=== PATIENT | female | born 1960 | race Caucasian/White ===

== ENCOUNTER 2019-05-14 16:52 | Outpatient (REF) | payer BC, SELFPAY ==
--- NOTE | 2019-05-14 16:00 | PAPFT_PTH ---
PATIENT: Lion Reilly LOC: [facility]#:[id number] AGE/SX: 59/F ROOM: RE05/14/[address]: Latosha Ceja : 1960 BED: DIS: 05/14/2019 SPEC #: [id number] RECD: 05/14/19 18:40 STATUS: SANDRINE REQ #: [id number] SG: 05/14/19 16:[address]: Latosha Ceja DEPT: REPLACED BY [facility] Cytology RECD BY: Ashleigh Story ENTERED: 05/14/19 18:40 SP TYPE: PAPFT OTHR DR: Daysi Reyna Tissues: 1 - CX/ENDOCX FOR PAP SMEARS Procedures: PAP THIN PREP/UVM Screening HPV DNA PROBE Comments: [id number]
== END 2019-05-14 17:12 ==
LOC: NCHCN 16:52
PROVIDERS: PCP Nurse Practitioner Family; Visit Provider Nurse Practitioner Family
DX: Z12.4 Encounter for screening for malignant neoplasm of cervix (principal); Z11.51 Encounter for screening for human papillomavirus (HPV)
CPT/HCPCS: 88142; 87624

== ENCOUNTER 2020-10-16 19:37 | Outpatient (REF) | payer BC, SELFPAY ==
[2020-10-16 16:00] LABS: Abs Immature Grans 0.01 10^3/uL (0.0-0.06); Absolute Basophil Count 0.03 10^3/uL (0.0-0.2); Absolute Eosinophil Count 0.13 10^3/uL (0.0-0.7); Absolute Lymphocyte Count 1.06 10^3/uL (1.2-3.4); Absolute Monocyte Count 0.35 10^3/uL (0.1-0.8); Absolute Neutrophil Count 2.86 10^3/uL (1.2-6.7); Basophils % 0.7; Eosinophils % 2.9; HCT 46.4 % (36.0-46.0); HGB 15.3 g/dL (11.2-15.7); Immature Grans % 0.2; Lymphocytes % 23.9; MCH 32.8 pg (27.0-33.0); MCV 99.4 fL (80-95); MPV 11.8 fL (8.0-11.0); Monocytes % 7.9; Neutrophils % 64.4; Nucleated RBC 0 %; Platelet Count 185 10^3/uL (130-400); RBC 4.67 10^6/uL (3.93-5.22); RDW-SD 44.7 fL; WBC 4.44 10^3/uL (4.4-10.8)
[2020-10-16 16:39] LABS: ALT 28 U/L (14-59); AST 23 U/L (15-37); Albumin 4.1 g/dL (3.4-5.0); Alkaline Phosphatase 57 U/L (46-116); Anion Gap 6.8 mmol/L (3-11); BUN 18 mg/dL (7-18); Bilirubin, Total 0.7 mg/dL (0.2-1.0); CO2 29.2 mmol/L (21.0-32.0); CREATININE 0.9 mg/dL (0.55-1.02); Calcium 9.6 mg/dL (8.5-10.1); Chloride 106 mmol/L (98-107); Folate 17.4 ng/mL (8.6-20.0); Glucose 95 mg/dL (74-106); Magnesium 1.9 mg/dL (1.8-2.4); Potassium 4.1 mmol/L (3.5-5.1); Sodium 142 mmol/L (136-145); TSH 0.95 uIU/mL (0.36-3.74); Total Protein 7.1 g/dL (6.4-8.2); Vitamin B12 250 pg/mL (193-986)
== END 2020-10-16 19:38 | disposition home or self-care (01) ==
LOC: NCHCN 19:37
PROVIDERS: PCP Nurse Practitioner Family; Visit Provider Physician Assistant
DX: R20.2 Paresthesia of skin (principal); H55.09 Other forms of nystagmus
CPT/HCPCS: 80053; 82607; 82746; 83735; 84443; 85025

== ENCOUNTER 2021-06-09 20:26 | Outpatient (REF) | payer BC, SELFPAY ==
[2021-06-11 10:18] LABS: COVID-19 RT-PCR UVMMC Result Negative (Negative)
== END 2021-06-09 20:27 | disposition home or self-care (01) ==
LOC: NCHCN 20:26
PROVIDERS: PCP Nurse Practitioner Family; Visit Provider Physician Assistant
DX: Z20.822 Contact with and (suspected) exposure to COVID-19 (principal)
CPT/HCPCS: U0003

== ENCOUNTER 2021-10-22 09:33 | Outpatient (REF) | payer BC, SELFPAY ==
[2021-10-22 19:23] LABS: Anion Gap 8.2 mmol/L (3-11); BUN 19 mg/dL (7-18); CO2 28.8 mmol/L (21.0-32.0); CREATININE 0.7 mg/dL (0.55-1.02); Calcium 8.9 mg/dL (8.5-10.1); Calculated LDL 171 mg/dL (<100); Chloride 104 mmol/L (98-107); Cholesterol 266 mg/dL (<200); Glucose 90 mg/dL (74-106); HDL Cholesterol 88 mg/dL (40-60); Potassium 4.6 mmol/L (3.5-5.1); Sodium 141 mmol/L (136-145); Triglyceride 36 mg/dL (<150)
[2021-10-26 09:37] LABS: Hepatitis C Ab w Rflx HCV PCR Negative (Negative)
== END 2021-10-22 09:34 | disposition home or self-care (01) ==
LOC: NCHCN 09:33
PROVIDERS: PCP Nurse Practitioner Family; Visit Provider Physician Assistant
DX: Z00.00 Encounter for general adult medical examination without abnormal findings (principal); Z11.59 Encounter for screening for other viral diseases; Z13.220 Encounter for screening for lipoid disorders
CPT/HCPCS: 80048; 80061; 86803

== ENCOUNTER 2021-11-25 00:59 | Outpatient (CLI) | payer BC, SELFPAY ==
--- NOTE | 2021-11-25 | DI.MAMMO_ITS ---
Exam(s) MAMMO SCREENING EXAM: MAMMO SCREENING CLINICAL HISTORY: SCREENING, Z12.31, FAMILY HX BREAST CA TECHNIQUE: Mammograms were interpreted according to the usual protocol including computer analysis w [employer] CAD system, tomosynthesis and C-view imaging. COMPARISON: [facility] MAMMO SCREENING ALIYA MELISSA from 10/05/2012 [facility]. FINDINGS: The breasts are composed of scattered fibroglandular densities, Breast Density category B. Left breast: No suspicious masses or suspicious microcalcifications are seen. No skin thickening or abnormal axillary lymph nodes are seen. There has been no significant change from prior exam. Right breast: There is a nodule in the posterior, superior right breast at the margin of the pectoral muscle which shows a question of spiculation on tomographic images. No suspicious microcalcificatio ns. No skin thickening or abnormal axillary lymph nodes are seen. IMPRESSION: Left breast: Negative. Right breast: Spot compression view and ultrasound are requested for further evaluation of a nodule in the posterosuperior right breast. BI-RADS Category 0 - Assessment Incomplete: Need additional imaging evaluation . Breast Density - Category B, scattered fibroglandular densities. A negative radiographic report should not delay biopsy if a dominant or clinically suspicious mass is present. Up to ten percent of cancers are not identified on mammography. A negative report may reinforce clinical impression. Adenosis and dense breasts may obscure an underlying neoplasm. False positive reports average 6 to 10%. Patient will receive a letter notifying them of these results.
== END 2021-11-25 01:19 ==
PROVIDERS: PCP Nurse Practitioner Family; Visit Provider Physician Assistant
DX: Z12.31 Encounter for screening mammogram for malignant neoplasm of breast (principal); R92.8 Other abnormal and inconclusive findings on diagnostic imaging of breast; Z80.3 Family history of malignant neoplasm of breast
CPT/HCPCS: 77063; 77067

== ENCOUNTER → 2021-12-04 01:15 | Outpatient (CLI) | payer BC, SELFPAY ==
--- NOTE | 2021-12-04 | DI.US_ITS ---
Exam(s) MG MAMMO SCREEN CALL BACK UNI US BREAST RT COMPLETE EXAM: MG MAMMO SCREEN CALL BACK UNI -RIGHT AND COMPLETE RIGHT BREAST ULTRASOUND CLINICAL HISTORY: NODULE RT BREAST. TECHNIQUE: Unilateral spot mammographic images obtained with 3D tomosynthesisand utilizing computer aided detection (CAD). . Complete RIGHT breast Ultrasound was also performed, including all 4 quadrants, the retroareolar yanely on, and the ipsilateral axilla. Following today's ultrasound a cutaneous Beakley marker was placed over finding at 12 o'clock positio n of the right breast on the ultrasound and thereafter repeat mammogram was performed for correlation . COMPARISON: Prior mammograms were reviewed. This additional imaging was performed due to findings described on the recent screening mammogram of 11/25/2021. FINDINGS: Additional mammographic views performed todayreveals that this posteriorly located nodule in the righ t breast persists and remains spiculated. Ultrasound performed today reveals a solitary finding at the 12 o'clock position, approximately 5 cm from the nipple. This is concerning nodular finding measuring approximately 9 x 10 millimeters and w hich exhibits decreased through transmission. There are no other findings in all 4 quadrants nor in the retroareolar region. Scanning of the ipsilateral right axilla did not reveal adenopathy. At this point a cutaneous marker was placed over the ultrasound finding and patient was brought to ma mmogram suite for repeat CC and MLO views. This does not exhibit exact correlation to the concerning finding on the mammogram. IMPRESSION: Concerning findings on both the mammogram and ultrasound (12 o'clock position). Suspicious for malig yovani. Biopsy is recommended. It may be prudent to perform MRI prior to biopsy because of non exact correlation between the mammogr aphic and ultrasound findings with respect to location. Findings are recommendations were discussed by myself with the patient today. BI-RADS Category 4 - Suspicious Abnormality: Biopsy should be considered Breast Density - Category C - Heterogeneously dense Breast density Category C or D implies that the patient has dense breast tissue. Dense breast tissue can make it harder to find cancer on a mammogram. Dense breast tissue is also associated with an incr eased risk of breast cancer. This information about the result of the mammogram report was provided to the patient to raise their awareness. Use this report when you speak with the patient about their risks for breast cancer, which includes their family history. At that time, you may recommend additional screening tests (Ultrasoun d or MRI) as these tests may add significant information. A negative radiographic report should not delay biopsy if a dominant or clinically suspicious mass is present. Up to ten percent of cancers are not identified on mammography. A negative report may reinforce clinical impression. Adenosis and dense breasts may obscure an underlying neoplasm. False positive reports average 6 to 10%. Patient will receive a letter notifying them of these results.
== END ==
PROVIDERS: PCP Nurse Practitioner Family; Visit Provider Physician Assistant
DX: Z12.31 Encounter for screening mammogram for malignant neoplasm of breast (principal); R92.8 Other abnormal and inconclusive findings on diagnostic imaging of breast; N63.15 Unspecified lump in the right breast, overlapping quadrants
CPT/HCPCS: 76642; 77063; 77067

== ENCOUNTER 2022-04-05 14:39 | Outpatient (CLI) | payer BC, SELFPAY ==
[2022-04-05 11:59] LABS: Abs Immature Grans 0.03 10^3/uL (0.0-0.06); Absolute Basophil Count 0.05 10^3/uL (0.0-0.2); Absolute Eosinophil Count 0.07 10^3/uL (0.0-0.7); Absolute Lymphocyte Count 1.58 10^3/uL (1.2-3.4); Absolute Monocyte Count 0.46 10^3/uL (0.1-0.8); Absolute Neutrophil Count 3.43 10^3/uL (1.2-6.7); Basophils % 0.9; Eosinophils % 1.2; HCT 42.5 % (36.0-46.0); HGB 14.1 g/dL (11.2-15.7); Immature Grans % 0.5; Lymphocytes % 28.1; MCH 32.2 pg (27.0-33.0); MCHC 33.2 % (32.0-36.0); MCV 97 fL (80-95); MPV 10.9 fL (8.0-11.0); Monocytes % 8.2; Neutrophils % 61.1; Platelet Count 209 10^3/uL (130-400); RBC 4.38 10^6/uL (3.93-5.22); RDW 11.9 % (11.7-14.6); RDW-SD 43.1 fL; WBC 5.62 10^3/uL (4.4-10.8)
== END 2022-04-05 14:40 | disposition home or self-care (01) ==
LOC: LBO 14:41
PROVIDERS: PCP Nurse Practitioner Family; Visit Provider Radiology Radiation Oncology
DX: C50.211 Malignant neoplasm of upper-inner quadrant of right female breast (principal)
CPT/HCPCS: 36415; 85025

== ENCOUNTER 2022-08-05 11:49 | Day surgery (SDC) | payer BC, SELFPAY ==
--- NOTE | 2022-08-05 11:18 | W.PM.DSUDISC ---
Date of service: 08/05/22 Time of Service: 14:07 Discharge Plan Disposition Patient Disposition: Home Condition: Good Discharge Details Reason For Visit: colonoscopy Attending Provider: Arjun Lim Primary Care Provider: Cristin Silveira Home Meds and New Rx's Prescriptions: Discontinued bisacodyl [Dulcolax (bisacodyl)] 5 mg tablet,delayed release (DR/EC) 5 mg PO ONCE Qty: 4 0RF Rx Instructions: Take according to provider's instructions for colonoscopy prep. polyethylene glycol 3350 17 gram/dose powder 17 g PO ONCE Qty: 238 0RF Rx Instructions: To be taken as directed by prescriber's office for colonoscopy prep. No Action anastrozole 1 mg tablet 1 mg PO DAILY Discharge Instructions Instructions: Diverticulosis (DC), Diverticulosis Diet (GEN) Additional Instructions: 1. If tolerated, consume a soft, low fiber diet for 1-2 days. 2[address] Do not drive, drink alcohol, operate machinery, make critical decisions, or do activities that require coordination or balance for 24 hours. 3. Because air was put into your colon during the procedure, expelling air from your rectum (passing gas or farting) is normal. 4. You may not have a bowel movement for 1-3 days because of the colonoscopy prep. This is normal. 5. Go directly to the emergency room if you notice any of the following: Develop chills (warm to touch), or if you have a thermometer and your temperature is above 101 Difficulty breathing or difficultly swallowing Persistent vomiting Severe abdominal pain, other than gas cramps Severe chest pain Black, tarry stools Any bleeding ? exceeding one tablespoon 6. Call your physician if the site where your intravenous was started becomes red, swollen, painful, and warm to touch. 7. Your physician has reviewed your pre-procedure medications. Please continue to take those medications as previously ordered. You will be given specific information/education regarding any changes to your medications before leaving. Activity:: Activity as Tolerated Diet:: As Tolerated Discharge Orders Discharge Orders: Discharge Order (Routine); Ordered 08/05/22 Ordered By: Arjun Lim DS: Diagnosis Discharge Diagnosis (1) Screening for colon cancer: Status: Acute Asessment and Plan: Lion I performed a complete colonoscopy today. You have some very rare sigmoid diverticulosis, that I do not think is anything to worry about. Otherwise, your colonoscopy was totally normal. Please find the attached recommendations for diet management of diverticulosis. I recommend another follow-up screening colonoscopy in about 10 years.
--- NOTE | 2022-08-05 11:20 | W.COLOREPORT ---
Date of service: 08/05/22 Time of Service: 14:08 Colonoscopy Report Date of procedure: 08/05/22 Pre-op diagnosis general: Screening colonoscopy Post-op diagnosis procedure note: same Procedure: Colonoscopy Surgeon: Arjun Lim Anesthesia Type: General:No Airway Pathology: none sent Complications: None Disposition: same day Indications: Ale is a 62-year-old woman here for for screening colonoscopy. Prep: Miralax/Dulcolax Procedure Start Time: 13:26 Procedure End Time: 13:51 Retraction Time: 16 Findings: Very rare sigmoid diverticulosis Procedure Description: After the induction of monitored anesthetic care, and with the patient in left lateral decubitus position, I began by performing an external anorectal exam.? Perineum and skin were normal, as was the anal verge.? There was no not evidence of external hemorrhoids.? Next, I performed a digital rectal exam.? I did appreciate any abnormal findings.? Next, I advanced a colonoscope into the rectal vault.? I performed retroflexion.? This appeared normal.? Using insufflation, I then advanced the colonoscope beyond the rectal folds and into the sigmoid colon before advancing towards the cecum.? The quality of the prep was adequate.? The scope was noted to be in the cecum by identification of the ileocecal valve and appendiceal orifice.? I then began withdrawing the colonoscope using repeated irrigation as necessary for full evaluation of the colonic mucosa. There were some occasional sigmoid diverticula, but nothing that looked worrisome. The lumen was quite easy to navigate. ?Once the scope was withdrawn to the level of the rectum, great care was taken to examine portions of the rectal folds.? Finally, the scope was withdrawn and the patient was brought to the same-day surgery recovery unit as the anesthetic wore off. ?The findings and instructions were shared with the patient prior to discharge.
[2022-08-05 12:05] VITALS: BP 118/72; PULSE 94; RESP 18; TEMP 36.5; O2SAT 100
--- NOTE | 2022-08-05 12:19 | W.ANESPRE ---
General Info Date of Service Date Performed: 08/05/22 Height: 5 ft 10.25 in Weight: 66.678 kg Body Mass Index (BMI): 20.9 Surgical Procedure: Operation Date: 08/05/22 13:05 Proposed Procedure Side Surgeon p Shanita Lim MD Meds Allergies and Home Medications Allergies Allergy/AdvReac Type Severity Reaction Status Date / Time No Known Allergies Allergy Verified 08/05/22 12:14 Home Medication Medication Instructions Recorded anastrozole 1 mg tablet 1 mg PO DAILY 07/22/22 Current Visit Medications: Current Medications Generic Name Dose Route Start Last Admin Trade Name Freq PRN Reason Stop Dose Admin Ringer's Solution 1,000 mls @ 80 mls/hr 08/05/22 06:00 IV 09/03/22 23:59 INFUSION VI IV Miscellaneous Supplies 1 each 08/05/22 06:00 Iv Access IV 09/03/22 23:59 DIRECTED VI Sodium Chloride 0 ml 08/05/22 06:00 Normal Saline Flush 10 Ml Syr IV 09/03/22 23:59 PRN PRN Sodium Chloride 0 ml 08/05/22 06:00 Normal Saline 10 Ml Vial IJ 09/03/22 23:59 DIRECTED PRN Sterile Water 0 ml 08/05/22 06:00 Water,Injection,Sterile 10 Ml Vial IJ 09/03/22 23:59 DIRECTED PRN PFSH Active Problems Active Problems: Problem Status Onset Code Screening for colon cancer Z12.11 Abnormal mammogram R92.8 Contracture, 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 Hot flashes R23.2 Vitamin B12 deficiency E53.8 Breast cancer C50.919 Medical History Medical History Vaginal dryness Medical History Comments:: pt reports delayed emergence under general anesthesia in past Surgical History Surgical History H/O lumpectomy January 2022 H/O: Tobacco Smoking/Tobacco Use Status: Never Alcohol Alcohol Intake: current Alcohol intake frequency: a few times a week Substance Use Substance use type: does not use Vital Signs and Lab Results Vital Signs Most Recent Vital Signs in EMR: Most Recent Vital Signs Temp Pulse Resp BP Pulse Ox 36.5 C 94 H 18 118/72 100 08/05/22 12:05 08/05/22 12:05 08/05/22 12:05 08/05/22 12:05 08/05/22 12:05 Lab Results Blood Type / Crossmatch: No Data to Display Complete Blood Count: No Data to Display Complete Metabolic Panel: No Data to Display Liver Function Panel: No Data to Display Coagulation Panel: No Data to Display Cardiac Panel: No Data to Display Arterial Blood Gas: No Data to Display Venous Blood Gas: No Data to Display Pancreas Panel: No Data to Display Thyroid Panel: No Data to Display Infectious Disease: No Data to Display Blood Cultures: No Data to Display Toxicology Panel: No Data to Display Anesthesia Assessment and Plan Anesthesia History Personal History: Delayed Emergence Family History: No Family History of Anesthesia Complications Exercise Tolerance Exercise Tolerance: Metabolic Equivalents>4 Pertinent Negatives Pertinent Negatives: No Symptoms of GERD Cardiac & Pulmonary Exam Cardiac Exam: Normal S1/S2 Heart Sounds Pulmonary Exam: Clear Bilateral Breath Sounds Implantable Cardiac Device Does patient have a Pacemaker or an ICD?: No Airway Exam Known Difficult Airway: No Mallampati Class: 2 Mouth Opening: Normal (> 3cm) Thyromental Distance: Greater than 3 cm Neck Range of Motion: Full ROM Neck Circumference: Normal Teeth Condition: Normal Dentition ASA Classification ASA Score: ASA 2 Emergency Case?: No NPO Status NPO Status: NPO Clears >2 hours, Solids >8 hours Anesthesia Plan Resuscitation Status: Full Code Anesthesia Technique: General Anesthesia Airway Planned: Natural Airway Monitors Used: Standard Monitors
[2022-08-05 12:26] VITALS: BMI 20.9
[2022-08-05] MEDS: Lactated Ringers 1,000 ML 80 ML IV (12:30)
[2022-08-05 14:00] VITALS: BP 97/71; PULSE 70; RESP 17; TEMP 36.5; O2SAT 97
[2022-08-05 14:35] VITALS: BP 104/68; PULSE 63; RESP 16; TEMP 36.3; O2SAT 100
--- NOTE | 2022-08-06 15:46 | W.ANESPOSTOP ---
Postoperative Evaluation Date, Time and Location Date Performed: 08/05/22 Time Performed: 15:00 Patient Location: Day Surgery Unit Vital Signs Most Recent Imported Vital Signs: Most Recent Vital Signs Temp Pulse Resp BP Pulse Ox 36.3 C L 63 16 104/68 100 08/05/22 14:35 08/05/22 14:35 08/05/22 14:35 08/05/22 14:35 08/05/22 14:35 Pain Score Most Recent Pain Score: Most Recent Pain Score Pain Level 0 08/05/22 14:35 Assessment Mental Status: Awake (Alert & Oriented to Patient Baseline) Airway and Respiratory Function: Patent airway with normal (patient baseline) respiratory exam Cardiovascular Function: Hemodynamically Stable Hydration Status: Adequately Hydrated Nausea & Vomiting: No Nausea or Vomiting Pain: Pt. Denies Any Pain Peripheral Nerve Block: Patient did not receive a nerve block
== END 2022-08-05 11:50 | disposition home or self-care (01) ==
PROVIDERS: PCP Physician Assistant; Visit Provider Surgery
PROC: 0DJD8ZZ Inspection of Lower Intestinal Tract, Via Natural or Artificial Opening Endoscopic (ICD-10-PCS; CPT 45378; principal; 2022-08-05 13:00)
DX: Z12.11 Encounter for screening for malignant neoplasm of colon (principal)
CPT/HCPCS: 45378; J2405; J2704

== ENCOUNTER 2022-10-22 14:37 | Outpatient (REF) | payer BC, SELFPAY ==
[2022-10-22 19:32] LABS: ALT 25 U/L (14-59); AST 25 U/L (15-37); Alkaline Phosphatase 61 U/L (46-116); Anion Gap 7.4 mmol/L (3-11); BUN 14 mg/dL (7-18); Bilirubin, Total 1.1 mg/dL (0.2-1.0); CO2 29.6 mmol/L (21.0-32.0); CREATININE 0.8 mg/dL (0.55-1.02); Calcium 9.4 mg/dL (8.5-10.1); Calculated LDL 121 mg/dL (<100); Chloride 105 mmol/L (98-107); Cholesterol 231 mg/dL (<200); Estimated GFR 82.74 (mL/min/1.73m2); Glucose 96 mg/dL (74-106); HDL Cholesterol 102 mg/dL (40-60); Potassium 4.3 mmol/L (3.5-5.1); Sodium 142 mmol/L (136-145); Total Protein 7.2 g/dL (6.4-8.2); Triglyceride 43 mg/dL (<150)
== END 2022-10-22 14:38 | disposition home or self-care (01) ==
LOC: NCHCN 14:37
PROVIDERS: PCP Physician Assistant; Visit Provider Physician Assistant
DX: Z00.00 Encounter for general adult medical examination without abnormal findings (principal); E78.5 Hyperlipidemia, unspecified
CPT/HCPCS: 80053; 80061

== ENCOUNTER 2023-06-28 16:57 | Outpatient (REF) | payer BC, SELFPAY ==
--- NOTE | 2023-06-28 15:20 | PAPFT_PTH ---
PATIENT: Lion Reilly LOC: [facility]#:[id number] AGE/SX: 63/F ROOM: RE06/28/[address]: Cristin Silveira : 1960 BED: DIS: 06/28/2023 SPEC #: [id number] RECD: 06/28/23 18:42 STATUS: SANDRINE REQ #: [id number] SG: 06/28/23 15:[address]: Cristin Silveira DEPT: [facility] Cytology RECD BY: Ashleigh Story Tissues: 1 - CX/ENDOCX FOR PAP SMEARS Procedures: PAP THIN PREP/UVM Screening HPV DNA PROBE Comments: [id number]
== END 2023-06-28 16:58 | disposition home or self-care (01) ==
LOC: NCHCN 16:57
PROVIDERS: PCP Physician Assistant; Visit Provider Physician Assistant
DX: Z12.4 Encounter for screening for malignant neoplasm of cervix (principal); Z11.51 Encounter for screening for human papillomavirus (HPV)
CPT/HCPCS: 88142; 87624

== ENCOUNTER 2023-10-25 08:59 | Outpatient (REF) | payer BC, SELFPAY ==
[2023-10-25 19:00] LABS: ALT 32 U/L (14-59); AST 29 U/L (15-37); Alkaline Phosphatase 65 U/L (46-116); Anion Gap 9.1 mmol/L (3-11); BUN 17 mg/dL (7-18); CO2 28.9 mmol/L (21.0-32.0); CREATININE 0.8 mg/dL (0.55-1.02); Calcium 9.2 mg/dL (8.5-10.1); Calculated LDL 103 mg/dL (<100); Chloride 106 mmol/L (98-107); Cholesterol 201 mg/dL (<200); Estimated GFR 82.23 (mL/min/1.73m2); Glucose 88 mg/dL (74-106); HDL Cholesterol 92 mg/dL (40-60); Sodium 144 mmol/L (136-145); Total Protein 6.9 g/dL (6.4-8.2); Triglyceride 34 mg/dL (<150)
== END 2023-10-25 09:00 | disposition home or self-care (01) ==
LOC: NCHCN 08:59
PROVIDERS: PCP Physician Assistant; Referring Provider Physician Assistant; Visit Provider Physician Assistant
DX: E78.5 Hyperlipidemia, unspecified (principal)
CPT/HCPCS: 80053; 80061

== ENCOUNTER 2024-03-23 16:03 | Outpatient (REF) | payer BC, SELFPAY ==
--- OUTSIDE RECORDS SUMMARY | 2024-03-23 16:08 | XMS_ITS | Encounter Summary ---
Author Organization [facility] [place] [address] Care Team Providers Care Senior Market Research Analyst Name Role Phone Brady Muller MD Primary Care Provider [phone] Encounter Details Date Type Department Care Team (Latest Contact Info) Description 01/17/2023 Travel Social History Tobacco Use Types Packs/Day Years Used Date Smoking Tobacco: Never Smokeless Tobacco: Never Alcohol Use Standard Drinks/Week Comments Yes 4 (1 standard drink = 0.6 oz pur e alcohol) Overall Financial Resource Strain (CARDIA) Answe r Date Recorded How hard is it for you to pa y for the very basics like food, housing, medical care, and heating? Not very hard 03/04/2022 Hunger Vital Sign Answer Date Recorded Within the past 12 months, y ou worried that your food would run out before you got the money to buy more. Never true 03/04/20 22 Within the past 12 months, t he food you bought just didn't last and you didn't have money to get more. Never true 03/04/2022 PRAPARE - Transportation Answer Date Re corded In the past 12 months, has l ack of transportation kept you from medical appointments or from getting medications? No 03/04/2022 Lack of Transportation (Non-Medical) Not on file 03/04/2022 Housing Stability Vital Sign Answer Josiah e Recorded In the last 12 months, was t here a time when you were not able to pay the mortgage or rent on time? No 03/04/2022 In the last 12 months, how many places have you lived? 1 03/04/2022 In the last 12 months, was t here a time when you did not have a steady place to sleep or slept in a care home (including now)? No 03/04/2022 Sex and Gender Information Value Date Recorded Sex Assigned at Not on file Gender Identity Not on file Sexual Orientation Not on file documented as of this encounter Plan of Treatment Upcoming Encounters Date Type Department Care Team (Late st Contact Info) Description 05/08/2024 11:00 AM EDT Office Visit Hematology and Oncology at [place] [phone] Sarah Yepez MD [facility] [address] [place] [address] 01/16/2025 8:20 AM EDT Appointment Mammography/[place] [phone] Mary Mary APRN [facility] [place] [address] 01/16/2025 9:20 AM EDT Office [place] [address] Mary Mary SUPPORT SERVICE TECH [facility] [place] [address] documented as of this encounter Visit Diagnoses Not on filedocumented in this encounter Care Teams Senior Market Research Analyst Relationship Specialty Start Date End Date Brady Muller MD [address] [place] [id number] PCP - General General Internal Medicine 12/14/21 documented as of this encounter
--- OUTSIDE RECORDS SUMMARY | 2024-03-23 16:08 | XMS_ITS | Encounter Summary ---
Author Organization [facility] [place] [address] Care Team Providers Care Hr Business Partner Name Role Phone Brady Muller MD Primary Care Provider [phone] Encounter Details Date Type Department Care Team (Late st Contact Info) Description 10/20/2023 Orders Only Hematology [place] [address] Sarah Yepez MD [facility] [address] [place] [address] Malignant neoplasm of upper-outer quadrant of right breast in female, estrogen receptor positive Social History Tobacco Use Types Packs/Day Years [...] place to sleep or slept in a senior care (including now)? No 03/04/2022 Sex and Gender Information Value Date Recorded Sex Assigned at Not on file Gender Identity Not on file Sexual Orientation Not on file documented as of this encounter Plan of Treatment Upcoming Encounters Date Type Department Care Team (Late st Contact Info) Description 05/08/2024 11:00 AM EDT Office Visit Hematology and Oncology at [place] [phone] Sarah Yepez MD [facility] [address] HEMATOLOGY [place] [address] 01/16/2025 8:20 AM EDT Appointment Mammography/DXA at [place] [phone] Mary Mary [facility] [place] [address] 01/16/2025 9:20 AM EDT Office Visit General Surgery at [place] [phone] Mary Mary EMBLEM DRAWER IN [facility] [place] [address] documented as of this encounter Results * Mammo Screening Cad and Marcos Bilateral (01/16/2024 8:23 AM EDT) WORKSTATION ID [id number] DH RAD Anatomical Region Laterality Modality Breast Bilateral Mammography Impressions 01/16/2024 9:05 AM EDT Right breast: Technical callback is requested for repeat right CC view to include additional posterior medial tissue and prior lumpectomy site. Additional imaging of the Right breast is indicated. BI-RADS Category 0: Incomplete- Need Additional Imaging Evaluation and/or Prior Mammograms for Comparison RECOMMENDATION: Additional imaging requested: Mammography. Additional non-protocol views: None The patient will be contacted regarding the additional imaging. * ??Regular screening mammograms starting at age 40 reduce the risk of from breast cancer. * ??Individuals should discuss the risks and benefits with their provider to determine their preferred breast cancer screening schedule, and at what age screening should stop. * ??Individuals should report any breast changes to a health care provider right away. * ??Some Individuals, because of their family history, a genetic tendency, or other factors, should consider being screened with annual breast MRI as well as with mammograms. * ??Screening mammography may not detect 10-15% of?breast cancers. Thank you for letting us participate in the care of this patient. ??If you are a health care provider and have any questions regarding this report, please contact the number below. ??For patients who have questions please contact the health career development engineer that requested your imaging first. ? Electronically signed by: Arabella Edwards MD, [facility] ([phone]), at 01/16/2024 9:05 AM Narrative 01/16/2024 9:05 AM EDT EXAMINATION: MAMMO SCREENING CAD AND MARCOS BILATERAL REASON FOR EXAM: Screening. History of right breast cancer. TECHNIQUE: CC and MLO views were obtained of BOTH breasts. 2D and 3D tomosynthesis images were obtained. Computer aided detection was used. COMPARISON: Comparison was made to the prior relevant examinations. BREAST DENSITY: The breast tissue is heterogeneously dense, which may obscure small masses. FINDINGS: Left breast: There are no suspicious microcalcifications, masses, or areas of distortion. No changes compared to prior studies. Right breast: Technical callback is requested for repeat right CC view to include additional posterior medial tissue and prior lumpectomy site. Additional imaging of the Right breast is indicated. 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
--- OUTSIDE RECORDS SUMMARY | 2024-03-23 16:08 | XMS_ITS | Encounter Summary ---
Author Organization [facility] [place] [place] [address] Care Team Providers Care Exploration Engineer Name Role Phone Brady Muller MD Primary Care Provider [phone] Encounter Details Date Type Department Care Team (Latest Contact Info) Description 10/20/2023 Travel Social History Tobacco Use Types Packs/Day [...] place to sleep or slept in a retirement (including now)? No 03/04/2022 Sex and Gender Information Value Date Recorded Sex Assigned at Not on file Gender Identity Not on file Sexual Orientation Not on file documented as of this encounter Plan of Treatment Upcoming Encounters Date Type Department Care Team (Late st Contact Info) Description 05/08/2024 11:00 AM EDT Office Visit Hematology and Oncology at [place] [phone] Sarah Yepez MD [facility] [address] [place] [address] 01/16/2025 8:20 AM EDT Appointment Mammography/[place] [address] Mary Mary APRN [facility] [place] [address] 01/16/2025 9:20 AM EDT Office [place] [address] Mary Mary HOOP COILER [facility] [place] [address] documented as of this encounter Visit Diagnoses Not on filedocumented in this encounter Care Teams Exploration Engineer Relationship Specialty Start Date End Date Brady Muller MD [address] [place] [address] PCP - General General Internal Medicine 12/14/21 documented as of this encounter
--- OUTSIDE RECORDS SUMMARY | 2024-03-23 16:08 | XMS_ITS | Encounter Summary ---
Author Organization [facility] [place] [address] Care Team Providers Care Surgeon Chief Name Role Phone Brady Muller MD Primary Care Provider [phone] Reason for Visit * Consultation (Routine) - Closed Specialty Diagnoses / Procedures Referred By Patience menon Referred To Contact Endocrinology Diagnoses Malignant neoplasm of breast in female, estrogen receptor positive, unspecified laterality, unspecified site of breast Sarah Yepez MD [facility] [address] [place] [address] Marilee Ruelas MD [facility] [place] [address] Referral ID Status Reason Start Date Expiration Date V isits Requested Visits Authorized [id number] Closed Consult, Test & Treat 05/13/2022 05/13/2023 1 1 Encounter Details Date Type Department Care Team (Latest Contact Info) Description 10/11/2022 3:00 PM EDT TH Visit (TeleHealth) [place] [address] Marilee Ruelas MD [facility] [address] Osteopenia, unspecified location; Hormone receptor positive malignant neoplasm of breast, unspecified laterality Social History Tobacco Use Types Packs/Day Years [...] place to sleep or slept in a fci (including now)? No 03/04/2022 Sex and Gender Information Value Date Recorded Sex Assigned at Not on file Gender Identity Not on file Sexual Orientation Not on file documented as of this encounter Progress Notes * Marilee Ruelas MD - 10/11/2022 3:00 PM EDT Images from the original note were not included. 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 Yepez. She has not had any minimal trauma fracture. Her last BMD by [facility] DXA done on 04/2022 LS - 1.2 SD LFN -1.2 SD LH -0.4 SD on T score Other risk factors for fracture/osteoporosis are: [] Yes [x] No Smoking, if yes, how long [x] Yes [] No Drinking alcohol. If yes, how much, 2-3 glasses on weekends [x] Yes [] No Exercise If yes how long and what kind of exercise 5x a week with snow shows, walks [] Yes [x] No Stomach or bowel surgery. If yes, When and what kind [] Yes [x] No Loose bowel movements. If yes, how frequently and how long [] Yes [x] No Loss of height [] Yes [x] No History of kidney stones? If yes, when and how many episodes? [] Yes [x] No Kidney or liver problems? If yes, what kind and how long? Average time spent outside in direct sun a day [] 0-5 min [] 5-10 min [] 11-15 min [] 16-20 min [] 21-25 min [] 26-30 min [x] >30 min For women: Start of menstrual cycle 12/ End of menstrual cycle 58 Daily calcium intake: [] 0-100 mg [] 101-200 mg [x] 201-300 mg from greens [] 301-400 mg [] 401-500 mg [] 501-600 mg [] 601-700 mg [] 701-900 mg [] 901-1100 mg [] 6270-3060 mg [] 5807-8165 mg [] Above 1500 mg Medications: Current Outpatient Medications on File Prior to Visit Medication Sig Dispense Refill ??? estradioL (VAGIFEM) [address] 1 tablet vaginally daily. 40 tablet 3 ??? anastrozole (Arimidex) 1 mg Tablet Take 1 tablet by mouth daily. 90 tablet 11 No current facility-administered medications on file prior to visit. [] Yes [x] No Glucocorticoid dose. When first prescribed? [] Yes [x] No Cyclosporine dose. When first prescribed? [] Yes [x] No Phenobarbital and phenytoin. When first prescribed? [] Yes [x] No Rosiglitazone, pioglitazone. When first prescribed? [] Yes [x] No PPI. When first prescribed? [] Yes [x] No SSRI. When first prescribed? [] Yes [x] No Thiaizdes, loop diuretics. When first prescribed? [] Yes [x] No Estrogens, testosterone. When first prescribed? [] Yes [x] No Calcitonin. When first prescribed? [x] Yes [] No Aromatase inhibitors (breast CA). When first prescribed? [] Yes [x] No Androgen deprivation therapy (prostate CA). When first prescribed? [] Yes [x] No Alendronate, risedronate, ibandronate. When first prescribed? PMH: Patient Active Problem List Diagnosis Code ??? Malignant neoplasm of right breast in female, estrogen receptor positive C50.911, Z17.0 Allergy: No Known Allergies Family History Problem Relation Age of Onset ??? Stomach Cancer Maternal Grandmother 80 ??? Liver Cancer Maternal Grandmother 80 ??? Breast Cancer Paternal Grandmother 80 B/l mastectomy ??? Ovarian Cancer Neg Hx Hip fracture in parents: no Osteopenia/Osteoporosis: no Hyperthyroidism/Hyperparathyrodism: no Social History Socioeconomic History ??? Marital status: Spouse name: Not on file ??? Number of children: Not on file ??? Years of education: Not on file ??? Highest education level: Not on file Occupational History ??? Not on file Tobacco Use ??? Smoking status: Never ??? Smokeless tobacco: Never Vaping Use ??? Vaping Use: Never used Substance and Sexual Activity ??? Alcohol use: Yes Alcohol/week: 4.0 standard drinks Types: 4 Glasses of wine per week ??? Drug use: Never ??? Sexual activity: Not on file Other Topics Concern ??? Not on file Social History Narrative ??? Not on file Social Determinants of Health Financial Resource Strain: Low Risk ??? Difficulty of Paying Living Expenses: Not very hard Food Insecurity: No Food Insecurity ??? Worried About Running Out of Food in the Last Year: Never true ??? Ran Out of Food in the Last Year: Never true Transportation Needs: No Transportation Needs ??? Lack of Transportation (Medical): No ??? Lack of Transportation (Non-Medical): No Physical Activity: Not on file Housing Stability: Low Risk ??? Unable to Pay for Housing in the Last Year: No ??? Number of Places Lived in the Last Year: 1 ??? Unstable Housing in the Last Year: No Physical Examination: Appearance: well hydrated, well nourished, oriented x 3, in nad. Labs 12/2021 CBC and Chem 7 in good range, AP 71 Assessment and Plan 1. Hx of breast cancer on AI/osteopenia: AIs increase bone loss up to 8% a year and fracture risk significantly. A. As patient's Ca intake is 300 mg from food. Will provide patient with list of Ca rich foods. Will get 24h urine Ca and PTH levels as pt avoiding dairy per her causing inflamation, will discuss more after 24h urine Ca is back. B. Patient also doesn't have Vitamin D done; goal is 30 ng/ml and above. Will check 25, Vit D now. She does not take any. C. Will order BMD by DXA 12 month if treatment is initiated, I will get NTX to see how avctive garrett osteoclasts are. D. If 25 Vit D, PTH, TSH and 24h urine Ca at good range will discuss treatment with zolendronic acid alendronate 70 mg Q week, risedronate 35 mg Q week, denosumab 60 mg SQ q 6 month, even though she is hesitant at this point. E. I will schedule patient for outpatient visit at 12 weeks. Thank you for allowing me to participate in the care of this very pleasant patient. I spend 60min in chart review, DXA, labs, discussing actions of AIs on bone and writing my note. Sincerely, Marilee Ruelas MD Professor of Endocrinology documented in this encounter Plan of Treatment Upcoming Encounters Date Type Department Care Team (Late st Contact Info) Description 05/08/2024 11:00 AM EDT Office Visit Hematology [place] [phone] Sarah Yepez MD [facility] [address] [place] [address] 01/16/2025 8:20 AM EDT Appointment Mammography/[place] [phone] Mary Mary APRN [facility] [address] 01/16/2025 9:20 AM EDT Office [place] [address] Mary Mary APRN [facility] [place] [address] documented as of this encounter Visit Diagnoses Diagnosis Osteopenia, unspecified location Hormone receptor positive malignant neoplasm of breast, unspecified laterality documented in this encounter Care Teams Surgeon Chief Relationship Specialty Start Date End Date Brady Muller MD [address] [place] [id number] PCP - General General Internal Medicine 12/14/21 documented as of this encounter
--- OUTSIDE RECORDS SUMMARY | 2024-03-23 16:08 | XMS_ITS | Encounter Summary ---
Author Organization [facility] [place] [address] Care Team Providers Care Truck Rental Manager Name Role Phone Brady Muller MD Primary Care Provider [phone] Encounter Details Date Type Department Care Team (Late st Contact Info) Description 05/22/2022 Telephone Hematology [place] [phone] [facility] [address] HEMATOLOGY/[place] [address] Social History Tobacco Use Types Packs/Day Years [...] on file documented as of this encounter Miscellaneous Notes * Telephone Encounter - Zander De Leon MD - 05/22/2022 1:54 PM EDT Heme-Onc Staff I have reviewed the patient's record and, given personal and/or family history of cancer she shouldbe seen by a genetic counselor. This is scheduled for next week. Zander De Leon MD air reduction equipment operator in Hematology-Oncology documented in this encounter Plan of Treatment Upcoming Encounters Date Type Department Care Team (Late st Contact Info) Description 05/08/2024 11:00 AM EDT Office Visit Hematology and Oncology at [place] [phone] [facility] [place] [address] 01/16/2025 8:20 AM EDT Appointment Mammography/DXA at [place] [phone] [facility] [place] [address] 01/16/2025 9:20 AM EDT Office Visit General Surgery at [place] [phone] [facility] GENERAL SURGERY [place] [phone] documented as of this encounter Visit Diagnoses Not on filedocumented in this encounter Care Teams Truck Rental Manager Relationship Specialty Start Date End Date Brady Muller MD [address] [place] [id number] PCP - General General Internal Medicine 12/14/21 documented as of this encounter
--- OUTSIDE RECORDS SUMMARY | 2024-03-23 16:08 | XMS_ITS | Encounter Summary ---
[place] [address] Care Team Providers Care Salesperson Hearing Aids Name Role Phone Brady Muller MD Primary Care Provider [phone] Encounter Details Date Type Department Care Team (Late st Contact Info) Description 04/07/2023 9:00 AM EDT Office Visit Hematology [place] [phone] Florencio Castillo, RN Malignant neoplasm of upper-outer quadrant of right [...] as of this encounter Progress Notes * Florencio Castillo RN - 04/07/2023 9:00 AM EDT RESEARCH NURSE OFFICE NOTE 12 Month Follow up Visit 04/07/2023 [id number]: A Phase III Clinical Trial Evaluating DE-escalation of Breast RAdiation (BJORN) for Conservative Treatment of Stage I, Hormone Sensitive, HER2-Negative, Oncotype Recurrence Score < 18 Breast Cancer Randomization Date: 04/05/2022; ARM 2- no XRT, ET only SUBJECTIVE Lion Reilly presented to hem-onc clinic for 12 month follow up with Dr. Yepez. She was accompanied by her , Ziggy. Lion Reilly confirms she has been taking anastrozole daily. She denies headache, vision changes, hearing changes, lightheadedness, fevers, chills, night sweats, mouth sores, taste changes, cold symptoms, heartburn, sob, chest pain or palpitations, nausea, vomitingor abdominal pain, urinary frequency or dysuria, states bowel habits are normal. She also denies numbness or tingling, skin rash, joint pain, swelling or fatigue. She does endorse hot flashes which she state come in waves and are manageable. She does report thatshe feels lumpy especially in her R axilla. Breast exam to be completed by provider this visit. STUDY ASSESSMENTS COMPLETED Questionnaire completed on paper and given to Sima Vazquez CRC A/E's Signs/Symptoms & Adverse Events (insert table via quick text on first occasion then copy from pervious note for all subsequent notes) EVENT CTCAE 5.0 GRADE START DATE STOP DATE COMMENTS hotflashes 1 ~04/09/22 BASELINE EDUCATION PROVIDED Lion Reilly was educated that we will schedule her 18 months from randomization visit around 10/06/23. Patient has been advised to contact this office or her research nurse for any questions, concerns, of new or worsening symptoms if they should happen prior to her next scheduled visit. Lion Reilly verbalizes that she still has Leeann Serrato RN's number. PLAN 1. Patient agrees to continue on study BR007. 2. Next visit 18 month follow up from randomization scheduled due 10/06/23 3. Continue endocrine therapy as ordered by Dr. Yepez Patient verbalizes understanding of, and agreement with, plan. documented in this encounter Plan of Treatment Upcoming Encounters Date Type Department Care Team (Late st Contact Info) Description 05/08/2024 11:00 AM EDT Office Visit Hematology and Oncology at [place] [phone] Sarah Yepez MD [facility] DR HEMATOLOGY [place] [address] 01/16/2025 8:20 AM EDT Appointment Mammography/[place] [address] Mary Mary [facility] [place] [address] 01/16/2025 9:20 AM EDT Office Visit General Surgery at [place] [phone] Mary Mary [facility] [place] [address] documented as of this encounter Visit Diagnoses Diagnosis Malignant neoplasm of upper-outer quadrant of right breast in female, estrogen receptor positive documented in this encounter Care Teams Salesperson Hearing Aids Relationship Specialty Start Date End Date Brady Muller MD [address] [address] PCP - General General Internal Medicine 12/14/21 documented as of this encounter
--- OUTSIDE RECORDS SUMMARY | 2024-03-23 16:08 | XMS_ITS | Encounter Summary ---
Author Organization [facility] [place] [address] Care Team Providers Care Wood Strip Block Floor Installer Name Role Phone Brady Muller MD Primary Care Provider [phone] Encounter Details Date Type Department Care Team (Latest Contact Info) Description 01/16/2024 8:07 AM EDT - 01/16/2024 11:59 PM EDT Hospital Encounter Mammography/[place] [address] Delmi Robins APRN [facility] [place] [address] Malignant neoplasm of upper-outer quadrant of right breast in female, estrogen receptor positive Discharge Disposition: Home Social History Tobacco Use Types Packs/Day Years [...] place to sleep or slept in a chcf (including now)? No 03/04/2022 Sex and Gender Information Value Date Recorded Sex Assigned at Not on file Gender Identity Not on file Sexual Orientation Not on file documented as of this encounter Medications at Time of Discharge Medication Sig Dispensed Refills Start Date End Date anastrozole (Arimidex) 1 mg tablet Take 1 tablet by mouth daily. 90 tablet 3 10/20/2023 10/19/2024 valACYclovir (Valtrex) 1 gram tablet TAKE ONE TABLET BY MOUTH THREE TIMES A DAY DIRECTED 04/12/2023 estradioL (VAGIFEM) [address] 1 tablet vaginally daily. 40 tablet 3 07/27/2022 documented as of this encounter Plan of Treatment Upcoming Encounters Date Type Department Care Team (Late st Contact Info) Description 05/08/2024 11:00 AM EDT Office Visit Hematology [place] [phone] Sarah Yepez MD [facility] [address] [place] [address] 01/16/2025 8:20 AM EDT Appointment Mammography/[place] [phone] Mary Mary APRN [facility] [place] [address] 01/16/2025 9:20 AM EDT Office [place] [phone] Mary Mary APRN [facility] [place] [address] documented as of this encounter Procedures Procedure Name Priority Date/Time Associated Diagnosis Comments MAMMO SCREENING CAD AND MARCOS BILATERAL Routine 01/16/2024 8:23 AM EDT Malignant neoplasm of upper-outer quadrant of right breast in female, estrogen receptor positive documented in this encounter Results * Mammo Screening Cad and Marcos Bilateral (01/16/2024 8:23 AM EDT) WORKSTATION ID [id number] DH RAD Anatomical Region Laterality Modality [...] who have questions please contact the health critical care paramedic that requested your imaging first. ? Narrative 01/16/2024 9:05 AM EDT EXAMINATION: MAMMO [...] the Right breast is indicated. Delmi Robins CO PILOT IMG MAMMO ORDERABLE S documented in this encounter Visit Diagnoses Diagnosis Malignant neoplasm of upper-outer quadrant of right breast in female, estrogen receptor positive documented in this encounter Care Teams Wood Strip Block Floor Installer Relationship Specialty Start Date End Date Brady Muller MD [address] [address] PCP - General General Internal Medicine 12/14/21 documented as of this encounter
--- OUTSIDE RECORDS SUMMARY | 2024-03-23 16:08 | XMS_ITS | Encounter Summary ---
[place] [address] Care Team Providers Care Federal Agent Name Role Phone Brady Muller MD Primary Care Provider [phone] Encounter Details Date Type Department Care Team (Late st Contact Info) Description 10/20/2023 1:00 PM EDT Office Visit Hematology [place] [phone] Florencio Castillo, RN Malignant neoplasm of upper-outer [...] place to sleep or slept in a snf (including now)? No 03/04/2022 Sex and Gender Information Value Date Recorded Sex Assigned at Not on file Gender Identity Not on file Sexual Orientation Not on file documented as of this encounter Progress Notes * Florencio Castillo RN - 10/20/2023 1:00 PM EDT RESEARCH NURSE OFFICE NOTE 18 Month Follow up Visit 10/20/2023 [id number]: A Phase III Clinical Trial Evaluating DE-escalation of Breast RAdiation (BJORN) for Conservative Treatment of Stage I, Hormone Sensitive, HER2-Negative, Oncotype Recurrence Score < 18 Breast Cancer Randomization Date: 04/05/2022; ARM 2- no XRT, ET only SUBJECTIVE Lion Reilly presented to hem-onc clinic for 18 month follow up with Dr. Yepez. She [...] state come in waves and are manageable. Notices that diet changes can cause increased hot flashes. Continues with active lifestyle- running, weightlifting, stretching. STUDY ASSESSMENTS COMPLETED A/E's Signs/Symptoms & Adverse Events (insert table via quick text on first occasion then copy from pervious note for all subsequent notes) EVENT CTCAE 5.0 GRADE START DATE STOP DATE COMMENTS hotflashes 1 ~04/09/22 BASELINE EDUCATION PROVIDED Lion Reilly was educated that we will schedule her 24 months from randomization visit around ~04/17. Patient has been advised to contact this office or her research nurse for any questions, concerns, of new or worsening symptoms if they should happen prior to her next scheduled visit. Lion hoang verbalizes that she still has Leeann Serrato RN's number. PLAN 1. Patient agrees to continue on study BR007. Reconsent completed 2. Next visit 24 month follow up from randomization scheduled due ~03/2024 3. Continue endocrine therapy as ordered by Dr. Yepez Patient verbalizes understanding of, and agreement with, plan. RESEARCH NURSE INFORMED RECONSENT NOTE Date: 10/20/2023 Objective of visit: complete reconsent per [id number] protocol requirements. Information Provided: Consent addendum was reviewed with Lion. Lion Reilly was advised that they may discontinue treatment at any time and that refusing to participate or discontinuing treatment will not compromise the patient's access to treatment options or care. Lion Reilly had previously been given written information regarding the protocol (informed consent document) and reports that they have had adequate time to review the information. They were given adequate time to ask questions and review concerns, all of which were answered to the patient's satisfaction. Assessment/Outcome: Lion Reilly verbalized understanding of protocol and continues to consent for treatment. Patient declined copy of signed ICF document. Original, signed informed consent document Version 05/13/23, effective date [id number] given to ELVIN Chacon for scanning into patient's electronic medical record. Written informed consent was obtained prior to any study procedures being done. *I attest that I amcertified and authorized to obtain legally effective informed consent from human subject participants per policy #34227 v.1* documented in this encounter Plan of Treatment Upcoming Encounters Date Type Department Care Team (Late st Contact Info) Description 05/08/2024 11:00 AM EDT Office Visit Hematology [place] [address] Sarah Yepez MD [facility] DR [place]EMATOLOGY [place] [address] 01/16/2025 8:20 AM EDT Appointment Mammography/[place] [phone] Mary Mary PLANT MAINTENANCE TECHNICIAN [facility] [place] [place] [address] 01/16/2025 9:20 AM EDT Office [place] [phone] Mary Mary PLANT MAINTENANCE TECHNICIAN [facility] [place] [address] documented as of this encounter Visit Diagnoses Diagnosis Malignant neoplasm of upper-outer quadrant of right breast in female, estrogen receptor positive documented in this encounter Care Teams Federal Agent Relationship Specialty Start Date End Date Brady Muller MD [address] [place] [address] PCP - General General Internal Medicine 12/14/21 documented as of this encounter
--- OUTSIDE RECORDS SUMMARY | 2024-03-23 16:08 | XMS_ITS | Encounter Summary ---
Author Organization [facility] [place] [address] Care Team Providers Care Track Layer Head Name Role Phone Brady Muller MD Primary Care Provider [phone] Reason for Visit * Reason Comments Follow-up Encounter Details Date Type Department Care Team (Late st Contact Info) Description 01/16/2024 9:20 AM EDT Office [place] [address] Dlemi Robins, [facility] [place] [address] Mary Mary, [facility] [place] [address] Encounter for follow-up surveillance of breast cancer; Malignant neoplasm of upper-inner quadrant of right breast in female, estrogen receptor positive; Heterogeneously dense tissue of both breasts on mammography; Breast cancer screening by mammogram Social History Tobacco Use Types Packs/Day Years [...] place to sleep or slept in a intermediate (including now)? No 03/04/2022 Sex and Gender Information Value Date Recorded Sex Assigned at Not on file Gender Identity Not on file Sexual Orientation Not on file documented as of this encounter Last Filed Vital Signs Vital Sign Reading Time Taken Comments Blood Pressure - - Pulse - - Temperature - - Respiratory Rate - - Oxygen Saturation - - Inhaled Oxygen Concentration - - Weight - - Height 177.9 cm (5' 10.04) 01/16/2024 9:26 AM E DT Body Mass Index - - documented in this encounter Progress Notes * Mary Mary APRN - 01/16/2024 9:20 AM EDT Images from the original note were not included. Patient ID: Lion Reilly is a 63 y.o. female. She is accompanied by her Ziggy. HPI: Lion is a patient of Dr. Gallego with a history of invasive ductal carcinoma in the right breast who returns for annual breast cancer surveillance. She is status post right partial mastectomy and sentinel node excision on February 11, 2022. At today's visit, Lion has no breast concerns and denies new lumps or bumps in her breasts or axilla. She performs occasional self-breast exams. No nipple discharge or pain in either breast. She denies new headaches or significant weight changes. No new bony pain or tenderness. She has no new or concerning complaints of fatigue, cardiovascular, or respiratory symptoms. All other ROS are negative. Lion denies significant changes to her health since her last visit. Breast cancer history: A screening mammogram in November 2021 showed a 0.9 cm mass in the right upper inner quadrant, 13 cm from the nipple. Diagnostic imaging confirmed the findings. A biopsy on 12/14/21 showed high grade ER/PRpositive, HER-2 negative IDC. An MRI on 01/04/22 showed a 9 mm mass with irregular margins in the right breast at 1:00, 16 cm from the nipple. Lion opted for BCT and SNE with Dr. Gallego on 02/11/22. Final pathology revealed 8 mm intermediategrade IDC, excised with negative margins. Four sentinel nodes were negative. Lion enrolled in BR007 study and randomized to the NO XRT arm. She started anastrozole on 04/09/22 with plan for 10 years. Breast Cancer Notes: Method of Cancer Detection Screening mammogram, 11/25/2021 Menopausal Status at Diagnosis Postmenopausal Date of Diagnostic Biopsy 12/14/2021 Local Surgery Right partial mastectomy Axillary Management SNE ([address] involved) Date of Last Surgical Procedure 02/11/2022 Histology IDC Location Right upper inner quadrant Size of Primary Malignancy 8 mm Grade 2, intermediate Margins Not involved ER Positive TN Positive HER-2 Negative OncotypeDx Recurrence Score 11 Chemotherapy Not indicated Radiation Therapy No XRT (BR007 study) Adjuvant Endocrine Therapy Anastrozole started 04/09/22 (Dr. Yepez) Genetic Testing 05/28/22 - [employer] Common Hereditary Cancers Panel showed no mutation was detected. Surveillance Annual mammogram and CBE Breast Cancer Risk Factors: History Age at delivery of first child 20 yo Breast fed Yes Menarche age 12-13 yo LMP / Menopause 57 yo Hormonal contraception use Yes, when younger Hormone replacement therapy No. She has a prescription for vaginal estrogen, but has not yet started using it. 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 Smoking Hx: She has never smoked. ETOH: few drinks/wk Physical Activity: Running, walking, strength training Relevant Medical Hx: Noncontributory Surgical Hx: Noncontributory Physical Exam: General appearance: Alert, well-appearing, well-developed; in no acute distress. Skin: Warm and dry. Head: Normocephalic, atraumatic. Neck: Soft and supple without cervical or supraclavicular adenopathy. Cardiovascular: Normal rate, regular rhythm and normal heart sounds. No murmur heard. Pulmonary: Effort normal and breath sounds normal. No signs of respiratory distress, cough, or wheezing. Breasts: Exam performed in the upright and supine positions. The left breast has well-healed scars in the upper outer quadrant and in the axilla. The scars are soft and nontender, without mass. No venous prominence, or skin thickening. The right breast is normal in appearance and contour. No suspicious masses, tenderness, dimpling, erythema, or other skin changes in either breast. No nipple discharge or other nipple changes. The nipples are everted. No palpable axillary lymph nodes bilaterally.The breasts are symmetric. Breast exam by palpation revealed no obvious or distinct masses or nodularity in either breast. She has dense fibroglandular tissue in the upper outer aspect of the breasts without tenderness to palpation. Musculoskeletal: Arms with full ROM without any evidence of lymphedema. Fully weight-bearing. Neurological: Alert and oriented x 4. Mood is euthymic and appropriate to the situation. Imaging: Imaging [place] [facility] no evidence of malignancy, BIRADS Category 0 in the right breast for a technical call back. The left breast was normal. The results were reviewed at today's appointment. Addendum: FINDINGS: 01/18/24 Repeat right cc views exaggerated lateral and exaggerated medial were performed. The lumpectomy cavity is far posterior central breast, best seen on the lateral view and exaggerated CC lateral. No definitive interval change. There are no suspicious microcalcifications, masses, or areas of unexplained distortion in either breast. No significant changes compared to prior studies. IMPRESSION No mammographic evidence of malignancy. FINAL ASSESSMENT: BI-RADS Category 2: Benign Assessment: Clinical breast exam notable for fibroglandular breast tissue bilaterally without notable masses, skin changes, dimpling, or nipple discharge. Plan: 1. Encounter for follow-up surveillance of breast cancer 2. Malignant neoplasm of upper-inner quadrant of right breast in female, estrogen receptor positive 3. Heterogeneously dense tissue of both breasts on mammography 4. Breast cancer screening by mammogram - Mammo Screening Cad and Marcos Bilateral; December 2024 - Right technical call back scheduled for 01/18/24 I have discussed my assessment and recommendations with Lion to include breast awareness and annual mammographic screening with clinical breast exams. Provided call back imaging in the right breast is negative, she will follow up with me in one year for ongoing breast cancer surveillance and screening. Lion will contact me if she develops any new breast changes or concerns prior to that appointment. She agrees to this plan. Survivorship recommendations: Continue annual bilateral screening mammograms until life expectancy is <10 years and you remainin good health, or as long as you would consider treatment for a breast cancer if found. Continue clinical breast exams at least once yearly. Continue self breast awareness. For any new or worsening symptoms for which cause remains undetermined, consider breast cancer recurrence. Specifically - new or worsening skeletal pain, headache, diplopia, neurologic deficits, elevated LFTs, abdominal pain/swelling, cough, or SOB. Get at least 150 minutes of cardiovascular exercise and 2 days of resistance/strength training per week. Ways to include exercise at home include yoga and bone building exercise videos online. At home resistance / strength exercise routines are available for free at [employer] & other things you bake.com: Improved Health for Seniors [employer] Consider wearing a weighted vest while walking to help with bone density. Eat a mainly plant-based Mediterranean style diet. Minimize processed foods, simple carbohydrates, sugars, and artificial sweeteners. Do not smoke. If consuming alcohol, limit to 1 drink or less per day. Maintain or achieve a healthy weight. Normal BMI < 25 for individuals under 65 years old; 22-30 for > 65 years old. Manage stress levels. Aim for at least 7 to 8 hours of sleep per night. Be cautious about exposure risk, both what you put in and on your body (ie: artificial fragrances, artificial dyes, as well as certain ingredients in makeup, hair and body care, antiperspirant, sunscreen, insect repellant, laundry detergent, fabric softener, dryer sheets, etc.). Resources to help you make informed choices for personal care products are available at EWG (Environmental Working Group) at ewg.org and free apps for your cell phone from [employer] (Healthy Living), Rosalee Dirty, and Kathy. Anticancer Lifestyle program offers free tools and information to help you improve your diet, increase fitness, decrease stress, and reduce your exposure to harmful chemicals in your home environment. Free course available at anticancerlifestyle.org. All questions were answered to the patient's satisfaction and they state understanding and agreement with today's treatment plan. They are encouraged to follow up sooner if they develop any new or concerning symptoms. I spent 35 minutes related to this encounter on the date of service, which included the following services that were not separately reported: [x] Preparing to see the patient (e.g., review of tests) [x] Obtaining and/or reviewing separately obtained history [x] Performing a medically appropriate examination and/or evaluation [x] Counseling and educating the patient/family/caregiver [x] Ordering medications, tests, or procedures [] Referring and communicating with other health animal caretaker supervisor [x] Documenting clinical information in the electronic or other health record [x] Independently interpreting results and communicating results to the patient/family/caregiver [x] Care coordination Mary Mary APRN Surgical Oncology P [phone] F [phone] [facility] documented in this encounter Plan of Treatment Upcoming Encounters Date Type Department Care Team (Late st Contact Info) Description 05/08/2024 11:00 AM EDT Office Visit Hematology [place] [address] Sarah Yepez MD [facility] [place] [address] 01/16/2025 8:20 AM EDT Appointment Mammography/[place] [address] Mary Mary APRN [facility] [place] [address] 01/16/2025 9:20 AM EDT Office Visit General Surgery at [facility] [place] [address] Mary Mary, [facility] [address] Scheduled Orders Name Type Priority Associated Diagnoses Orde r Schedule Mammo Screening Cad and Marcos Bilateral Imaging Routine Malignant neoplasm of upper-inner quadrant of right breast in female, estrogen receptor positive Heterogeneously dense tissue of both breasts on mammography Breast cancer screening by mammogram Expected: 01/15/2025, Expires: 07/17/2025 documented as of this encounter Visit Diagnoses Diagnosis Encounter for follow-up surveillance of breast cancer Unspecified follow-up examination Malignant neoplasm of upper-inner quadrant of right breast in female, estrogen receptor positive Heterogeneously dense tissue of both breasts on mammography Breast cancer screening by mammogram documented in this encounter Care Teams Track Layer Head Relationship Specialty Start Date End Date Brady Muller MD [address] [address] PCP - General General Internal Medicine 12/14/21 documented as of this encounter
--- OUTSIDE RECORDS SUMMARY | 2024-03-23 16:08 | XMS_ITS | Encounter Summary ---
Author Organization [facility] [place] [address] Care Team Providers Care Glove Factory Sewer Name Role Phone Brady Muller MD Primary Care Provider [phone] Encounter Details Date Type Department Care Team (Latest Contact Info) Description 07/27/2022 Travel Social History Tobacco Use Types Packs/Day [...] place to sleep or slept in a residential (including now)? No 03/04/2022 Sex and Gender Information Value Date Recorded Sex Assigned at Not on file Gender Identity Not on file Sexual Orientation Not on file documented as of this encounter Plan of Treatment Upcoming Encounters Date Type Department Care Team (Late st Contact Info) Description 05/08/2024 11:00 AM EDT Office Visit Hematology and Oncology at [place] [phone] Sarah Yepez MD [facility] [address] [place] [address] 01/16/2025 8:20 AM EDT Appointment Mammography/[place] [address] Mary Mary APRN [facility] [place] [address] 01/16/2025 9:20 AM EDT Office [place] [address] Mary Mary ROOF PANEL HANGER [facility] [place] [place] [address] documented as of this encounter Visit Diagnoses Not on filedocumented in this encounter Care Teams Glove Factory Sewer Relationship Specialty Start Date End Date Brady Muller MD [address] [place] [id number] PCP - General General Internal Medicine 12/14/21 documented as of this encounter
--- OUTSIDE RECORDS SUMMARY | 2024-03-23 16:08 | XMS_ITS | Encounter Summary ---
Author Organization [facility] Address [facility] [place] [address] Care Team Providers Care Deputy Sheriff Bailiff Name Role Phone Brady Muller MD Primary Care Provider [phone] Reason for Visit * Reason Comments Follow-up Encounter Details Date Type Department Care Team (Late st Contact Info) Description 11/30/2022 10:00 AM EDT Office Visit Hematology [place] [address] Sarah Yepez MD [facility] [address] HEMATOLOGY [place] [address] Malignant neoplasm of upper-outer quadrant of right [...] Sign Reading Time Taken Comments Blood Pressure 105/69 11/30/2022 9:22 AM EDT Pulse 61 11/30/2022 9:22 AM EDT Temperature 36.3 ??C (97.3 ??F) 11/30/2022 9:22 AM ED T Respiratory Rate 16 11/30/2022 9:22 AM EDT Oxygen Saturation 100% 11/30/2022 9:22 AM EDT Inhaled Oxygen Concentration - - Weight 65.8 kg (145 lb 1 oz) 11/30/2022 9:22 AM EDT Height 177.5 cm (5' 9.88) 11/30/2022 9:22 AM ED T Body Mass Index 20.88 11/30/2022 9:22 AM EDT documented in this encounter Progress Notes * Sarah Yepez MD - 11/30/2022 10:00 AM EDT Lion Reilly is a 62 y.o. female with a stage 1 right luminal breast cancer On adjuvant anastrazole since 04/09/22 And of BR007, randomized to no RT. Surg Onc: Dr Gallego 11/30/2022 On anastrazole and BR007, randomized to no breast RT. Myalgias/arthalgias: none hot flashes: comes in waves but better exercise: yes, running 2 or 3 x a week ( @ 3 miles) and snowshioeing Not using vagifem. Saw metabolic bone- needs to be sent a urine collection Genetics negative 07/27/2022 Here for routine follow-up. 1. She started anastrozole on 04/09/22. Formal teaching from Barbi Gramajo RN. Using diet to control hot flashes that were previously horrendous during menopause. She has lost approximately 20lbover the years. She has noticed a difference in her hot flashes after starting anastrozole. She hasdaily hot flash during her coffee. They last about 2-3 min. She has more if she deviates from her diet - the ham, pork chops, red meat. She was recently in [place] in June. She does noticea relationship with alcohol. She is accepting of these side effects. She also has nausea in the conventional underwriter that is not new. Joint aches have resolved after the diet changes. Vaginal dryness is an issue, with narrowing of the introitus and painful penetration. She has tried KY jelly with no improvement. She has noticed a difference in the mucosa with vaginal suppositories (non-estrogen containing). She has not tried topical estrogen but came close prior to her breast cancer diagnosis. She says she is game to try it and it would improve her quality of life is she could enjoy intercourse again with her partner. 2. DEXA scan on 05/07/22 showed osteopenia (T-1.2); pt was referred to endocrinology; appointment not yet scheduled. She is awaiting their phone call. 3. She received genetic counseling and is awaiting results of [employer] Common Hereditary Cancers Panel (buccal swab) Breast Cancer History as follows: 12/14/2021 MMG and US: Right breast 0.8 cm mass right breast 1:00 12/14/2021 right breast biopsy Path PD IDC ER>90 NC >90 HER 2 ary neg by FISH oncotype RS: 11 ( 3% recurrence risk with hormones) Ki 67: 16% 01/04/2022: katie breast MRI: right breast 0l9 cm. No nodes 02/11/2022 RLE and SLNB (0/4) [id number] Path: IDC T= 0.8 cm Grade 2 No DCIS No LVI Neg margin No post op complications Enrolled in BR 007 and randomized to NO breast RT. anastrazole started 04/09/22 Genetics negative 2022 Past Medical History: Diagnosis Date ??? Malignant neoplasm of right breast in female, estrogen receptor positive 12/18/2021 12/14/21 bx [facility]: ER+/NC+/HER2 pending right breast IDC, high grade Past Surgical History: Procedure Laterality Date ??? MAMMO US BIOPSY RIGHT Right 12/14/2021 Mammo Us Biopsy Right 12/14/2021 Delmi Gardner MD [facility] RAD MAMMOGRAPHY ??? MAMMO US NEEDLE LOCALIZATION RIGHT Right 02/11/2022 Mammo US Needle Localization Right 02/11/2022 Gali Bosch MD [facility] RAD MAMMOGRAPHY ??? PRO BX/REMV, LYMPH NODE, DEEP AXILL Right 02/11/2022 BIOPSY OR EXCISION OF LYMPH NODE(S), OPEN, DEEP AXILLARY NODE(S) (WRVU 6.43) performed by Deshawn Gallego MD at [facility] MAIN OR ??? PRO INTRAOP SENTINEL LYMPH ID W/DYE INJECTION Right 02/11/2022 INTRAOPERATIVE ID (MAPPING) SENTINEL LYMPH NODE,INCLUDES INJECTION (WRVU 2.5) performed by Deshawn Gallego MD at [facility] MAIN OR ??? 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 Negative for chills, fatigue and fever. HENT: Negative. Eyes: Negative. Respiratory: Negative. Negative for cough, dizziness on exertion and shortness of breath. Cardiovascular: Negative. Negative for chest pain and leg swelling. Gastrointestinal: Negative. Endocrine: Negative. Genitourinary: Negative. Musculoskeletal: Negative. Skin: Negative. Neurological: Negative. Hematological: Negative. Psychiatric/Behavioral: Negative. All other systems reviewed and are negative. Physical Exam: . Constitutional: She is oriented to person, place, and time. She appears well- developed and well-nourished. No distress. HENT: Head: Normocephalic. Eyes: Conjunctivae are normal. Pupils are equal, round, and reactive to light. Neck: Normal range of motion. Cardiovascular: Normal rate, regular rhythm and normal heart sounds. Pulmonary/Chest: Effort normal and breath sounds normal. Breasts: Right breast: s/p RLE and SLNB. No masses or nipple discharge in right or left breast Has a keloid-like scar at the site of tumor excision. No evidence of CW recurrence or infection. Abdominal: Soft. Bowel sounds are normal. There is no tenderness. Musculoskeletal: Normal range of motion. Extremities: no clubbing, cyanosis or edema Neurological: She is alert and oriented to person, place, and time. Gait normal. Skin: Skin is warm and dry. Psychiatric: She has a normal mood and affect. Her behavior is normal A/P Lion Reilly is a 62 y.o. female With a stage 1 luminal breast cancer on the right who is s/p RLE and SLNB with a low oncotype scoreof 11 on anastrazole and tolerating well. She is enrolled on BR 007 and randomized to NO RT I recommend the followin.Breast Cancer: Hormonal therapy x 10 years. Currently taking anastrazole. rx renewed. DEXA showed osteopenia - referred to metabolic bone group. Needs to finish up evaluation. email sent to endocrine team 2 On 007- No RT 3. Genetics - negative 4. RTC as per study protocol Time spent: 40 minutes of which >50% was in discussion Future Appointments Date Time Provider Department Center 11/30/2022 9:30 AM Leeann Serrato RN [facility] HEM ONC [facility] 11/30/2022 10:00 AM Sarah Yepez MD [facility] HEM ONC [facility] 11/30/2022 10:40 AM [facility] DB [place] ROOM 4 MH Mammo [facility] Rad 11/30/2022 11:00 AM Regina Castro APRN [facility] SURG [facility] documented in this encounter Plan of Treatment Upcoming Encounters Date Type Department Care Team (Late st Contact Info) Description 05/08/2024 11:00 AM EDT Office Visit Hematology [place] [address] Sarah Yepez MD [facility] [address] HEMATOLOGY [place] [address] 01/16/2025 8:20 AM EDT Appointment Mammography/DXA at [place] [phone] Mary Mary DIRECTOR OF GRADUATE ADMISSIONS [facility] [place] [address] 01/16/2025 9:20 AM EDT Office Visit General Surgery at [place] [phone] Mary Mary, [facility] [address] documented as of this encounter Results * Mammo Diagnostic CAD and Marcos Bilateral (01/17/2023 2:32 PM EDT) Anatomical Region Laterality Modality Breast Bilateral Mammography Impressions 01/17/2023 4:43 PM EDT No evidence of malignancy FINAL ASSESSMENT: LEFT BREAST: BI-RADS Category 1: Negative RIGHT BREAST: BI-RADS Category 2: Benign Findings RECOMMENDATION: Routine follow-up Thank you for letting us participate in the care of this patient. ??If you are a health care provider and have any questions regarding this report, please contact the number below. ??For patients who have questions please contact the health hearing healthcare practitioner that requested your imaging first. ? Narrative 01/17/2023 4:43 PM EDT DIAGNOSTIC MAMMOGRAPHY OF THE BILATERAL BREASTS CLINICAL HISTORY: h/o breast cancer TECHNIQUE AND VIEWS OBTAINED: CC and MLO views were obtained of BOTH breasts. 2D and 3D tomosynthesis images were obtained. Computer aided detection was used. COMPARISON: Prior images BREAST DENSITY: The breasts are heterogeneously dense, which may obscure small masses. FINDINGS: There are no worrisome calcifications, dominant nodules are areas of architectural distortion in either breast. There are posttherapeutic changes in the right breast Sarah Yepez MD IMG MAMMO ORDERABLES documented in this encounter Visit Diagnoses Diagnosis Malignant neoplasm of upper-outer quadrant of right breast in female, estrogen receptor positive Malignant neoplasm of upper-outer quadrant of right breast in female, estrogen receptor positive documented in this encounter Care Teams Deputy Sheriff Bailiff Relationship Specialty Start Date End Date Brady Muller MD [address] [place] [id number] PCP - General General Internal Medicine 12/14/21 documented as of this encounter
--- OUTSIDE RECORDS SUMMARY | 2024-03-23 16:08 | XMS_ITS | Encounter Summary ---
Author Organization [facility] [place] [address] Care Team Providers Care Dispatch Officer Name Role Phone Brady Muller MD Primary Care Provider [phone] Encounter Details Date Type Department Care Team (Latest Contact Info) Description 11/30/2022 Travel Social History Tobacco Use Types Packs/Day [...] to sleep or slept in a senior living (including now)? No 03/04/2022 Sex and Gender Information Value Date Recorded Sex Assigned at Not on file Gender Identity Not on file Sexual Orientation Not on file documented as of this encounter Plan of Treatment Upcoming Encounters Date Type Department Care Team (Late st Contact Info) Description 05/08/2024 11:00 AM EDT Office Visit Hematology and Oncology at [place] [phone] Sarah Yepez MD [facility] [address] [place] [address] 01/16/2025 8:20 AM EDT Appointment Mammography/[place] [address] Mary Mary APRN [facility] [place] [address] 01/16/2025 9:20 AM EDT Office [place] [address] Mary Mary BOTTLE ASSEMBLER [facility] [place] [address] documented as of this encounter Visit Diagnoses Not on filedocumented in this encounter Care Teams Dispatch Officer Relationship Specialty Start Date End Date Brady Muller MD [address] [place] [id number] PCP - General General Internal Medicine 12/14/21 documented as of this encounter
--- OUTSIDE RECORDS SUMMARY | 2024-03-23 16:08 | XMS_ITS | Encounter Summary ---
Author Organization [facility] [address] Care Team Providers Care Dry Cleaning Machine Operator Name Role Phone Brady Muller MD Primary Care Provider [phone] Encounter Details Date Type Department Care Team (Latest Contact Info) Description 10/20/2023 1:41 PM EDT - 10/20/2023 11:59 PM EDT Hospital Encounter Hematology [place] [address] Malignant neoplasm of upper-outer quadrant of right [...] place to sleep or slept in a group home (including now)? No 03/04/2022 Sex and [...] EDT Office Visit Hematology [place] [address] Sarah Yepez MD [facility] DR HEMATOLOGY [place] [address] 01/16/2025 8:20 AM EDT Appointment Mammography/DXA at [place] [phone] Mary Mary APRN [facility] [place] [address] 01/16/2025 9:20 AM EDT Office [place] [address] Mary Mary APRN [facility] [place] [address] documented as of this encounter Procedures Procedure Name Priority Date/Time Associated Diagnosis Comments HEMOGRAM STAT 10/20/2023 2:04 PM EDT Malignant neoplasm of upper-outer quadrant of right breast in female, estrogen receptor positive DIFFERENTIAL, AUTOMATED STAT 10/20/2023 2:04 PM EDT Malignant neoplasm of upper-outer quadrant of right breast in female, estrogen receptor positive CANCER ANTIGEN 15-3 Routine 10/20/2023 2 :04 PM EDT Malignant neoplasm of upper-outer quadrant of right breast in female, estrogen receptor positive CBC (WITH DIFF) STAT 10/20/2023 2:04 PM EDT Malignant neoplasm of upper-outer quadrant of right breast in female, estrogen receptor positive CEA Routine 10/20/2023 2:04 PM EDT Malignant neoplasm of upper-outer quadrant of right breast in female, estrogen receptor positive COMPREHENSIVE METABOLIC PANEL STAT 10/20/2023 2:04 PM EDT Malignant neoplasm of upper-outer quadrant of right breast in female, estrogen receptor positive documented in this encounter Results * Differential, Automated (10/20/2023 2:04 PM EDT) Neutrophil % 55.7 % [facility] Neutrophil Absolute 2.34 1.70 - 6.10 x10(3)/[facility] Lymph % 30.6 % [facility] Lymphocytes Abs 1.3 0.9 - 3.2 x10(3)/[facility] Monocyte % 9.0 % [facility] Monocyte Abs 0.4 0.3 - 0.9 x10(3)/[facility] Eos % 3.3 % [facility] Eosinophils Abs 0.1 0.0 - 0.4 x10(3)/[facility] Basophil % 1.2 % [facility] Baso Absolute 0.0 0.0 - 0.1 x10(3)/[facility] Immature Gran % 0.20 % [facility] Comment: Immature granulocytes(IG's)percentage and absolute count will include metamyelocytes, myelocytes, and promyelocytes. Blood smears from CBCs yielding IG's will be scanned manually for concordance. If this scan disagrees with the automated IG or if promyelocytes are noted, a manual differential will be performed. Immature Gran Absolute 0.01 0.00 - 0.04 x10(3)/[facility] Blood 10/20/2023 2:04 PM EDT 10/20/2023 2:19 PM EDT Narrative Resulting Agency Comment Spec In Lab Sarah Yepez MD HEMATOLOGY ORDERABLE S [facility] [place] [address] * (ABNORMAL) Hemogram (10/20/2023 2:04 PM EDT) White Blood Cell 4.2 4.0 - 9.5 x10(3)/ L [facility] Red Blood Cell 4.27 4.00 - 5.21 x10(6)/mc L [facility] Hemoglobin 13.9 11.7 - 15.5 g/dL [facility] Hematocrit 42.4 35.7 - 45.8 % [facility] Mean Cell Volume 99.3(H) 82.6 - 94.4 fL [facility] Mean Cell Hemoglobin 32.6(H) 27.1 - 32.0 pg [facility] Mean Cell Hemoglobin Concentration 32.8 31.7 - 35.0 g/dL [facility] Platelet 163 145 - 357 x10(3)/ L [facility] RDW Standard Deviation 46.5(H) 37.0 - 46.0 fL [facility] RDW coefficient of variation 12.7 11.5 - 14.1 % [facility] Mean Platelet Volume 11.2 7.6 - 12.9 fL [facility] NRBC% auto 0.0 % [facility] NRBC Absolute 0.000 0.000 - 0.000 x10(3)/mc L [facility] Blood 10/20/2023 2:04 PM EDT 10/20/2023 2:19 PM EDT Narrative Resulting Agency Comment Spec In Lab Sarah Yepez MD HEMATOLOGY ORDERABLE S [facility] [place] [address] * (ABNORMAL) Comprehensive metabolic panel (non-fasting) (10/20/2023 2:04 PM EDT) Glucose 86 65 - 199 mg/dL [facility] Comment:Diabetes: >=200 mg/d L plus symptoms Blood Urea Nitrogen 19(H) 8 - 18 mg/dL [facility] Creatinine 1.01 0.70 - 1.20 mg/dL [facility] Sodium 141 135 - 145 mmol/L [facility] Potassium 4.1 3.5 - 5.0 mmol/L [facility] Comment: Please note: ??Patients with WBC >100,000 may have falsely elevated Potassium levels. ??For accurate Potassium quantification in these patients send serum separator tube (gold top) for subsequent determinations. ??Contact the Clinical Chemistry Laboratory if there are any questions. Chloride 104 98 - 107 mmol/L [facility] Carbon Dioxide 29 22 - 31 mmol/L [facility] Anion Gap 8 5 - 15 mmol/L [facility] Calcium 9.7 8.5 - 10.5 mg/dL [facility] Protein, Total 6.7 6.1 - 8.0 g/dL [facility] Albumin 4.6 3.2 - 5.2 g/dL [facility] Aspartate Aminotransferase 24 0 - 30 unit/L [facility] Alanine Aminotransferase 20 0 - 30 unit/L [facility] Alkaline Phosphatase 66 35 - 105 unit/L [facility] Bilirubin, Total 0.6 0.2 - 1.3 mg/dL [facility] Est Glomerular Filtration Rate 62 >=60 mL/min/1. 73 m?? [facility] Comment: This patient's estimated GFR was calculated using the 2020 CKD-EPI equation. The estimated GFR can vary from the measured GFR by up to 30% in the absence of rapidly changing kidney function. Assessment of the estimated GFR is not appropriate when creatinine concentrations are rapidly changing. For clinical situations in which a more precise estimate of GFR is necessary, consider alternative methods of GFR estimation such as a 24-hour urine creatinine clearance. Assignment of CKD stage 1-5 for patients with an eGFR near the transition point between stages may be based on clinical assessment of muscle mass and symptoms in addition to eGFR. Blood 10/20/2023 2:04 PM EDT 10/20/2023 2:19 PM EDT Narrative Resulting Agency Comment Spec In Lab Sarah Yepez MD CHEMISTRY ORDERABLES Performing Organization Address City/[facility]/ZIP Co de Phone Number [facility] [place] [address] * CEA (10/20/2023 2:04 PM EDT) Carcinoembryonic Antigen 1.1 <=3.8 ng/mL [facility] Comment: Reference range: ??(20-69 years): Non-smoker: ??less than or equal to 3.8 ng/mL Smoker: ??less than 5.5 ng/ml This result was generated using a Asif Fercho immunoassay. ??Results obtained from other methods or manufacturers cannot be used interchangeably with this method. Blood 10/20/2023 2:04 PM EDT 10/20/2023 2:19 PM EDT Narrative Resulting Agency Comment Spec In Lab Sarah Yepez MD CHEMISTRY ORDERABLES Performing Organization Address City/[facility]/ZIP Co de Phone Number [facility] [place] [address] * Cancer antigen 15-3 (10/20/2023 2:04 PM EDT) CA 15-3 14 <=25 unit/mL [facility] Comment: This result was generated using a Asif Fercho immunoassay. ??Results obtained from other methods or manufacturers cannot be used interchangeably with this method. Blood 10/20/2023 2:04 PM EDT 10/20/2023 2:19 PM EDT Narrative Resulting Agency Comment Spec In Lab Sarah Yepez MD CHEMISTRY ORDERABLES [facility] [place] [address] documented in this encounter Visit Diagnoses Diagnosis Malignant neoplasm of upper-outer quadrant of right breast in female, estrogen receptor positive documented in this encounter Care Teams Dry Cleaning Machine Operator Relationship Specialty Start Date End Date Brady Muller MD [address] [place] [id number] PCP - General General Internal Medicine 12/14/21 documented as of this encounter
--- OUTSIDE RECORDS SUMMARY | 2024-03-23 16:08 | XMS_ITS | Encounter Summary ---
Author Organization [facility] [place] [address] Care Team Providers Care Financial Aids Officer Name Role Phone Brady Muller MD Primary Care Provider [phone] Encounter Details Date Type Department Care Team (Late st Contact Info) Description 11/30/2022 11:00 AM EDT Office [place] [address] Regina Castro APRN [facility] [place] [address] Malignant neoplasm of right breast in female, estrogen receptor positive, unspecified site of breast Social History Tobacco Use Types Packs/Day Years [...] place to sleep or slept in a long term (including now)? No 03/04/2022 Sex and Gender Information Value Date Recorded Sex Assigned at Not on file Gender Identity Not on file Sexual Orientation Not on file documented as of this encounter Progress Notes * Regina Castro, ROPE TWISTING MACHINE OPERATOR - 11/30/2022 11:00 AM EDT Images from the original note were not included. Comprehensive Breast Program Follow Up Visit Patient ID: Lion Reilly is a 62 y.o. female CC: follow up R breast cancer/imaging-surveillance Current plan: anastrozole per medical oncology (Enrolled in BR 007 study) Surgeon: Dr. Gallego HPI: Lion Reilly is a 62 y.o. female presenting for follow up/surveillance imaging for a history of R breast cancer, IDC, gr 2, 8 mm, margin neg, 0/4 SN, [id number]. ER/LA +, HER2 neg; Date of surgery: 02/11/22. Seen by Dr. Gallego 03/11/22- plan 6 mos new baseline R mammogram. Oncotype low at 11;Enrolled in BR 007, randomized to NO breast radiation. Started anastrozole under Dr. Yepez on 04/09/22. Last seen 07/27/22. Referred to endocrinology for management osteopenia. Follow up visit 3 mos per protocol in medical oncology. Underwent genetic testing 05/28/22- no mutation detected. Interim history: I reviewed the following outside notes: none I received a call from the research nurse that per protocol (BR007), her mammogram is due after 12/27/22. So, her mammogram for today was cancelled and she is scheduled for bilateral mammogram on 01/17/23 No changes 11/30/22 Family History Problem (# of Occurrences) Relation (Name,Age of Onset) Breast Cancer (1) Paternal Grandmother (80): B/l mastectomy Stomach Cancer (1) Maternal Grandmother (80) Liver Cancer (1) Maternal Grandmother (80) Negative family history of: Ovarian Cancer Review of systems: Patient concerns for today's visit:nothing specific Breast(s)/axilla: new lumps, bumps, skin changes, nipple discharge or pain: no Lymphedema of breast and/or arm: no Limitations in affected side ROM arm: no BSE: no Energy level: no Cardiac/Respiratory symptoms: chest pain or difficulty breathing: no New bone pain or tenderness:no Mood changes:no Alteration sexual function/body image: no concerns Lifestyle/health/social: Recent significant weight changes : none Sleep: doesn't sleep well, intermittently awake/asleep (chronic) Exercise/Bone health: runs 2-3 x per week or more 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 Neck: Soft and supple without masses or cervical adenopathy. Breasts: Exam performed in the upright and supine positions. Both breasts normal in appearance and symmetrical. On bilateral exam, no suspicious masses, tenderness, dimpling, erythema, or skin changes. No axillary masses palpated bilaterally. Dense fibroglandular pattern noted. R breast incision well healed. Musculoskeletal: Arms with full ROM without any evidence of lymphedema. Fully weight-bearing. Neurological: Alert and oriented x 4. Imaging Reviewed Today: none Assessment: Lion Reilly is a a 62 y.o. female presenting for follow up/surveillance imaging for a historyof R breast cancer, IDC, gr 2, 8 mm, margin neg, 0/4 SN, [id number]. ER/LA +, HER2 neg; Date of surgery: 02/11/22. Oncotype low at 11; Enrolled in BR 007, randomized to NO breast radiation. Started anastrozole under Dr. Yepez on 04/09/22. Underwent genetic testing 05/28/22- no mutation detected. Medical Decision Making/Recommendations/Plan: # History of R breast IDC: no concerning symptoms reported today; no concerns on physical examination Discussed that she will receiving mammogram results via her patient portal after her 01/17/[address] Yepez. If radiology needs additional images, they will call her directly. # Late effects of treatment: no lymphedema or limitations ROM arm, no skin changes or erythema breast # follow up per her individualized plan per Protocol BR007 Next mammogram and visit with Mary Mary APRN for CBE in 1 year (from her 01/17/23 bilateral mammogram) She will call sooner if she develops any new breast changes or concerns. I spent 20 minutes, (including face to face and non-face to face time) for this encounter. This includes: Preparation for the visit: __ reviewing test results __ obtaining interim medical/surgical history __ reviewing patient completed questionnaires During the visit: _x_ obtaining the history/ROS _x_ performing medically appropriate examination and ROS __ reviewing test results with patient/family/caregiver __ discussing disease status _x_ counseling/educating the patient/family/caregiver __ ordering medications/tests/procedures __ referring and communicating with other health professionals Post visit: _x_ documenting in medical record __ communications with other health professionals __ other: Lion Reilly had the opportunity to ask questions and I answered them to the best of my knowledge. Lion Reilly agreed to contact surgery department in between visits if she has any questions/concerns or new breast changes or concerns. Regina Castro, JAX, ANP, ROPE TWISTING MACHINE OPERATOR, AOCNP Nurse Practitioner Surgical Oncology Coverage for Mary Mary APRN documented in this encounter Plan of Treatment Upcoming Encounters Date Type Department Care Team (Late st Contact Info) Description 05/08/2024 11:00 AM EDT Office Visit [place]ology [place] [address] Sarah Yepez MD [facility] [address] [place] [address] 01/16/2025 8:20 AM EDT Appointment Mammography/[place] [phone] Mary Mary ROPE TWISTING MACHINE OPERATOR [facility] [place] [address] 01/16/2025 9:20 AM EDT Office [place] [phone] Mary Mary [facility] [place] [address] documented as of this encounter Visit Diagnoses Diagnosis Malignant neoplasm of right breast in female, estrogen receptor positive, unspecified site of breast documented in this encounter Care Teams Financial Aids Officer Relationship Specialty Start Date End Date Brady Muller MD [address] [place] [id number] PCP - General General Internal Medicine 12/14/21 documented as of this encounter
--- OUTSIDE RECORDS SUMMARY | 2024-03-23 16:08 | XMS_ITS | Encounter Summary ---
Author Organization [facility] [place] [address] Care Team Providers Care Developmental Behavioral Physician Name Role Phone Brady Muller MD Primary Care Provider [phone] Encounter Details Date Type Department Care Team (Latest Contact Info) Description 01/16/2024 Travel Social History Tobacco Use Types Packs/Day [...] place to sleep or slept in a prison (including now)? No 03/04/2022 Sex and Gender Information Value Date Recorded Sex Assigned at Not on file Gender Identity Not on file Sexual Orientation Not on file documented as of this encounter Plan of Treatment Upcoming Encounters Date Type Department Care Team (Late st Contact Info) Description 05/08/2024 11:00 AM EDT Office Visit Hematology and Oncology at [place] [phone] Sarah Yepez MD [facility] [address] [place] [address] 01/16/2025 8:20 AM EDT Appointment Mammography/[place] [address] Mary Mary APRN [facility] [place] [address] 01/16/2025 9:20 AM EDT Office [place] [address] Mary Mary SECURITIES SETTLEMENT PROCESSOR [facility] [address] documented as of this encounter Visit Diagnoses Not on filedocumented in this encounter Care Teams Developmental Behavioral Physician Relationship Specialty Start Date End Date Brady Muller MD [address] [place] [phone] PCP - General General Internal Medicine 12/14/21 documented as of this encounter
--- OUTSIDE RECORDS SUMMARY | 2024-03-23 16:08 | XMS_ITS | Encounter Summary ---
[place] [address] Care Team Providers Care Sea Captain Name Role Phone Brady Muller MD Primary Care Provider [phone] Encounter Details Date Type Department Care Team (Late st Contact Info) Description 11/30/2022 9:30 AM EDT Office Visit Hematology [place] [phone] Leeann Serrato, RN Malignant neoplasm of upper-outer quadrant of [...] place to sleep or slept in a [place] (including now)? No 03/04/2022 Sex and Gender Information Value Date Recorded Sex Assigned at Not on file Gender Identity Not on file Sexual Orientation Not on file documented as of this encounter Progress Notes * Leeann Serrato, RN - 11/30/2022 9:30 AM EDT RESEARCH NURSE OFFICE NOTE 6 month visit (delayed due to weather/reschedule) 11/30/22 NRG-BR007: A Phase III Clinical Trial Evaluating DE-escalation of Breast RAdiation (BJORN) for Conservative Treatment of Stage I, Hormone Sensitive, HER2-Negative, Oncotype Recurrence Score < 18 Breast Cancer SUBJECTIVE Lion Reilly presented to hem-onc clinic for 6 month follow up with Dr. Yepez. She was accompanied by her . Lion Reilly confirms she has been taking anastrozole daily. She denies headache, vision changes, hearing changes, lightheadedness, fevers, chills, night sweats, mouth sores, taste changes, cold symptoms, heartburn, sob, chest pain or palpitations, nausea, vomiting or abdominal pain, urinary frequency or dysuria, states bowel habits are normal. She also denies numbness or tingling, skin rash, joint pain, swelling or fatigue. She does endorse hot flashes which she statecome in waves are increasingly manageable. She is no longer using the vagifem as she does not like the side effects. STUDY ASSESSMENTS COMPLETED ?? Questionnaire completed on paper and given to Sima OCONNOR ?? A/E's Signs/Symptoms & Adverse Events (insert table via quick text on first occasion then copy from pervious note for all subsequent notes) EVENT CTCAE 5.0 GRADE START DATE STOP DATE COMMENTS hotflashes 1 ~04/09/22 BASELINE EDUCATION PROVIDED Lion Reilly was educated that we will schedul her 12 months from randomization visit around 04/06/23. Discussed with Lion the window for her 12 month mammogram for the protocol and she agrees to return for the mammogram in December. Patient has been advised to contact this office or her research nurse for any questions, concerns, of new or worsening symptoms if they should happen prior to her next scheduled visit. Lion Reilly verbalizes that she still has my number. PLAN 1. Patient agrees to continue on study BR007. 2. 6 month visit was delayed due to patient rescheduling due to weather. 2. Next visit 12 month follow up from randomization scheduled due 04/06/23. 3. Continue endocrine therapy as ordered by Dr. Yepez 4. 12 month bilateral Mammogram scheduled for 01/17/23 at 2:20 pm Patient verbalizes understanding of, and agreement with, plan. documented in this encounter Plan of Treatment Upcoming Encounters Date Type Department Care Team (Late st Contact Info) Description 05/08/2024 11:00 AM EDT Office Visit Hematology and Oncology at [place] [phone] Sarah Yepez MD [facility] DR HEMATOLOGY [place] [address] 01/16/2025 8:20 AM EDT Appointment Mammography/DXA at [place] [phone] Mary Mary ASSEMBLER ADJUSTER [facility] [place] [address] 01/16/2025 9:20 AM EDT Office Visit General Surgery at [place] [phone] Mary Mary APRN [facility] [place] [address] documented as of this encounter Visit Diagnoses Diagnosis Malignant neoplasm of upper-outer quadrant of right breast in female, estrogen receptor positive documented in this encounter Care Teams Sea Captain Relationship Specialty Start Date End Date Brady Muller MD [address] [place] [id number] PCP - General General Internal Medicine 12/14/21 documented as of this encounter
--- OUTSIDE RECORDS SUMMARY | 2024-03-23 16:08 | XMS_ITS | Encounter Summary ---
Author Organization [facility] Address [facility] [place] [address] Care Team Providers Care Equities Analyst Name Role Phone Brady Muller MD Primary Care Provider [phone] Encounter Details Date Type Department Care Team (Latest Contact Info) Description 01/17/2023 2:12 PM EDT - 01/17/2023 11:59 PM EDT Hospital Encounter Mammography/[place] [address] Sarah Yepez MD [facility] HEMATOLOGY [place] [address] Malignant neoplasm of upper-outer quadrant of right [...] place to sleep or slept in a [facility] (including now)? No 03/04/2022 Sex and Gender Information Value Date Recorded Sex Assigned at Not on file Gender Identity Not on file Sexual Orientation Not on file documented as of this encounter Medications at Time of Discharge Medication Sig Dispensed Refills Start Date End Date estradioL (VAGIFEM) [address] 1 tablet vaginally daily. 40 tablet 3 07/27/2022 anastrozole (Arimidex) 1 mg tablet Take 1 tablet by mouth daily. 90 tablet 3 11/30/2022 07/26/2023 documented as of this encounter Plan of Treatment Upcoming Encounters Date Type Department Care Team (Late st Contact Info) Description 05/08/2024 11:00 AM EDT Office Visit Hematology [place] [address] Sarah Yepez MD [facility] [place] [address] 01/16/2025 8:20 AM EDT Appointment Mammography/DXA at [place] [phone] Mary Mary APRN [facility] [place] [place] [address] 01/16/2025 9:20 AM EDT Office Visit General Surgery at [place] [phone] Mary Mary APRN [facility] [place] [place] [address] documented as of this encounter Procedures Procedure Name Priority Date/Time Associated Diagnosis Comments MAMMO DIAGNOSTIC CAD AND LUC BILATERAL Routine 01/17/2023 2:32 PM EDT Malignant neoplasm of upper-outer quadrant of right breast in female, estrogen receptor positive documented in this encounter Results * Mammo Diagnostic CAD and Luc Bilateral (01/17/2023 2:32 PM EDT) Anatomical Region [...] who have questions please contact the health menagerie caretaker that requested your imaging first. ? Electronically signed by: Jovani Mills MD, [facility] ([phone]), at 01/17/2023 4:43 PM Narrative 01/17/2023 4:43 PM EDT DIAGNOSTIC MAMMOGRAPHY [...] positive documented in this encounter Care Teams Equities Analyst Relationship Specialty Start Date End Date Brady Muller MD [address] [place] [phone] PCP - General General Internal Medicine 12/14/21 documented as of this encounter
--- OUTSIDE RECORDS SUMMARY | 2024-03-23 16:08 | XMS_ITS | Encounter Summary ---
Author Organization [facility] [place] [address] Care Team Providers Care Auto Body Repairer Name Role Phone Brady Muller MD Primary Care Provider [phone] Reason for Visit * Reason Comments Follow-up Encounter Details Date Type Department Care Team (Late st Contact Info) Description 07/27/2022 10:00 AM EST Office Visit [place] [address] Sarah Yepez MD [facility] [address] [place] [address] Karishma Mcdonnell MD [facility] DR HEMATOLOGY/[place] [address] Malignant neoplasm of upper-outer quadrant of right breast in female, estrogen receptor positive Social History Tobacco Use Types Packs/Day Years Used Date Smoking Tobacco: Never Smokeless Tobacco: Never Tobacco Cessation:Counseling Given: Not Answered Alcohol Use Standard Drinks/Week Comments Yes 4 [...] place to sleep or slept in a custodial (including now)? No 03/04/2022 Sex and Gender Information Value Date Recorded Sex Assigned at Not on file Gender Identity Not on file Sexual Orientation Not on file documented as of this encounter Last Filed Vital Signs Vital Sign Reading Time Taken Comments Blood Pressure 113/72 07/27/2022 9:56 AM EST Pulse 82 07/27/2022 9:56 AM EST Temperature 34.8 ??C (94.6 ??F) 07/27/2022 9:56 AM ES T Respiratory Rate 16 07/27/2022 9:56 AM EST Oxygen Saturation 100% 07/27/2022 9:56 AM EST Inhaled Oxygen Concentration - - Weight 67.8 kg (149 lb 7.6 oz) 07/27/2022 9:56 A M EST shoes off Height 178.4 cm (5' 10.24) 07/27/2022 9:[address] shoes off Body Mass Index 21.3 07/27/2022 9:56 AM EST documented in this encounter Progress Notes * Karishma Mcdonnell MD - 07/27/2022 10:00 AM EST Lion Reilly is a 62 y.o. female with a stage 1 right luminal breast cancer here for an opinion regarding the next step in her care. Surg Onc: Dr Gallego 07/27/2022 Here for routine follow-up. 1. She [...] chops, red meat. [place] was [place] [employer] [employer] [place]. She does noticea relationship with alcohol. She is accepting of these side effects. She also has nausea in the sex crimes detective that is not new. Joint aches have [...] genetic counseling and is awaiting results of [employer] Common Hereditary Cancers Panel (buccal swab) Breast Cancer History as follows: 12/14/2021 MMG and US: Right breast 0.8 cm mass right breast 1:00 12/14/2021 right breast biopsy Path PD IDC ER>90 IA >90 HER 2 ary neg by FISH oncotype RS: 11 ( 3% recurrence risk with hormones) Ki 67: 16% 01/04/2022: katie breast MRI: right breast 0l9 cm. No nodes 02/11/2022 RLE and SLNB (0/) [id number] Path: IDC T= 0.8 cm Grade 2 No DCIS No LVI Neg margin No post op complications Enrolled in BR 007 and randomized to NO breast RT. Past Medical History: Diagnosis Date ??? 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 MAMMO US BIOPSY RIGHT Right 12/14/2021 Mammo Us Biopsy Right 12/14/2021 Delmi Gardner MD [facility] RAD MAMMOGRAPHY ??? MAMMO US NEEDLE LOCALIZATION RIGHT Right 02/11/2022 Mammo US Needle Localization Right 02/11/2022 Gali Bosch MD [facility] RAD MAMMOGRAPHY ??? PRO BX/REMV, LYMPH NODE, DEEP AXILL Right 02/11/2022 BIOPSY OR EXCISION OF LYMPH NODE(S), OPEN, DEEP AXILLARY NODE(S) (WRVU 6.43) performed by Deshawn Gallego MD at [facility] MAIN OR ??? PRO INTRAOP SENTINEL LYMPH ID W/DYE INJECTION Right 02/11/2022 INTRAOPERATIVE ID (MAPPING) SENTINEL LYMPH NODE,INCLUDES INJECTION (WRVU 2.5) performed by Deshawn Gallego MD at [facility] MAIN OR ??? PRO MASTECTOMY PARTIAL Right 02/11/2022 MASTECTOMY PARTIAL (WRVU 10.13) performed by Deshawn Gallego MD at [facility] MAIN OR Csn x 3 Meds: [...] systems reviewed and are negative. Physical Exam: Patient Vitals for the past 24 hrs: Temp Pulse Resp BP SpO2 07/27/22 0956 (!) 34.8 ??C (94.6 ??F) 82 16 113/72 100 % Constitutional: She is oriented to person, place, [...] and SLNB with a low oncotype scoreof 11. Hence hormonal therapy was recommended. She is tolerating this well. Side effects include hot flashes and are controlled mainly through diet. We will work with her on vaginal dryness. She is exercising for bone health. She is enrolled on BR 007 and randomized to NO RT I recommend the followin.Breast Cancer: Hormonal therapy x 10 years. Currently taking anastrazole. Symptom management - recommend magnesium-rich foods for hot flashes and Vagifem for vaginal drynessand pain with penetration DEXA showed osteopenia - referred to [facility]. Needs to schedule an appointment. 2 On BR007- No RT 3. Genetics - results pending 4. RTC 3 mos per study protocol Karishma Mcdonnell MD Heme/Onc Fellow * Sarah Yepez MD - 07/27/2022 10:00 AM EST I have seen and examined the patient in person and reviewed the Fellow's above history and I agree with the details as written. The assessment and plan were formulated in discussion with me and I agree with them as documented. Currently on anastrazole and doing fairly well. On BR 007. Will RTC in 3 months documented in this encounter Plan of Treatment Upcoming Encounters Date Type Department Care Team (Late st Contact Info) Description 05/08/2024 11:00 AM EDT Office Visit Hematology and Oncology at [place] [phone] Sarah Yepez MD [facility] DR HEMATOLOGY [place] [address] 01/16/2025 8:20 AM EDT Appointment Mammography/[place] [address] Mary Mary [facility] [address] 01/16/2025 9:20 AM EDT Office [place] [address] Mary Mary [facility] [place] [address] documented as of this encounter Visit Diagnoses Diagnosis Malignant neoplasm of upper-outer quadrant of right breast in female, estrogen receptor positive documented in this encounter Care Teams Auto Body Repairer Relationship Specialty Start Date End Date Brady Muller MD [address] [address] PCP - General General Internal Medicine 12/14/21 documented as of this encounter
--- OUTSIDE RECORDS SUMMARY | 2024-03-23 16:08 | XMS_ITS | Encounter Summary ---
Author Organization [facility] [place] [address] Care Team Providers Care Legal Administrative Secretary Name Role Phone Brady Muller MD Primary Care Provider [phone] Encounter Details Date Type Department Care Team (Latest Contact Info) Description 01/18/2024 Travel Social History Tobacco Use Types Packs/Day [...] EDT Office Visit Hematology and Oncology at [place] [phone] Sarah Yepez MD [facility] DR HEMATOLOGY [place] [address] 01/16/2025 8:20 AM EDT Appointment Mammography[place] [address] Mary Mary APRN [facility] [place] [address] 01/16/2025 9:20 AM EDT Office [place] [address] Mary Mary SCOREBOARD OPERATOR [facility] [place] [address] documented as of this encounter Visit Diagnoses Not on filedocumented in this encounter Care Teams Legal Administrative Secretary Relationship Specialty Start Date End Date Brady Muller MD [address] [place] [phone] PCP - General General Internal Medicine 12/14/21 documented as of this encounter
--- OUTSIDE RECORDS SUMMARY | 2024-03-23 16:08 | XMS_ITS | Encounter Summary ---
Author Organization Formerly [facility] Address [facility] [place] [address] Care Team Providers Care Calender Let Off Operator Name Role Phone Brady Muller MD Primary Care Provider [phone] Reason for Visit * Reason Comments Follow-up Encounter Details Date Type Department Care Team (Late st Contact Info) Description 10/20/2023 1:00 PM EDT Office Visit H[place]ology [place] [address] Sarah Yepez MD [facility] [place] [address] Malignant neoplasm of upper-outer quadrant of right [...] Sign Reading Time Taken Comments Blood Pressure 120/85 10/20/2023 1:09 PM EDT Pulse 65 10/20/2023 1:09 PM EDT Temperature 36.5 ??C (97.7 ??F) 10/20/2023 1:09 PM ED T Respiratory Rate 16 10/20/2023 1:09 PM EDT Oxygen Saturation 100% 10/20/2023 1:09 PM EDT Inhaled Oxygen Concentration - - Weight 67.2 kg (148 lb 2.4 oz) 10/20/2023 1:09 P M EDT Height 177.9 cm (5' 10.04) 10/20/2023 1:09 PM E DT Body Mass Index 21.23 10/20/2023 1:09 PM EDT documented in this encounter Progress Notes * Sarah Yepez MD - 10/20/2023 1:00 PM EDT Lion Reilly is a 63 y.o. female with a stage 1 right luminal breast cancer On adjuvant anastrazole since 04/09/22 And of BR007, randomized to no RT. Surg Onc: Dr Gallego 10/20/2023 On anastrazole myalgias/arthralgias: none hot flashes:present. No change. Seems related to foods, salt intake vaginal dryness: some but managing with lubricants exercise: lifting weights 5-6 times per week, running Followed by Endocrine for bones: 04/07/2023 Mammo in December, [facility] Pending urine collection per Dr. Ruelas to evaluate for 24h calcium (dairy causing inflammation) Planning repeat DEXA at 12 months after starting treatment per Endocrine Planning for zometa vs PO vs xgeva pending normal results as above Mild hot flashes - modifying with diet; doesn't want/need additional treatment for them No arthralgias/myalgias Exercise: lifting weights 5-6 times per week, running 11/30/2022 On anastrazole and BR007, randomized to no breast RT. Myalgias/arthalgias: none hot flashes: comes in waves but better exercise: yes, running 2 or 3 x a week ( @ 3 miles) and snowshioeing Not using vagifem. Saw metabolic bone- needs to be sent a urine collection Genetics negative Health Maintenance: Breast imaging: mammo 01/17/23 Bone density: Apr 2022 Colonoscopy: 2022, no significant findings per her recollection Skin check: 07/2023 Apartment Manager: done with PCP 09/202307/27/2022 Here for routine follow-up. 1. She started [...] chops, red meat. [place] She does noticea relationship with alcohol. She is accepting of these side effects. She also has nausea in the hot stick worker that is not new. Joint aches have [...] genetic counseling and is awaiting results of [employer]'s Common Hereditary Cancers Panel (buccal swab) Breast Cancer History as follows: 12/14/2021 MMG and US: Right breast 0.8 cm mass right breast 1:00 12/14/2021 right breast biopsy Path PD IDC ER>90 KS >90 HER 2 ary neg by FISH oncotype RS: 11 ( 3% recurrence risk with hormones) Ki 67: 16% 01/04/2022: katie breast MRI: right breast 0l9 cm. No nodes 02/11/2022 RLE and SLNB (0) [id number] Path: MD IDC T= 0.8 cm Grade 2 No DCIS No LVI Neg margin No post op complications Enrolled in BR 007 and randomized to NO breast RT. anastrazole started 04/09/22 Genetics negative 2022 Past Medical History: Diagnosis Date Malignant neoplasm of right breast in female, estrogen receptor positive 12/18/2021 12/14/21 bx [facility] ER+/[place]+/HER2 pending right breast IDC, high grade Past Surgical History: Procedure Laterality Date BREAST BIOPSY Right 12/14/2021 IDC BREAST LUMPECTOMY Right 02/11/2022 MAMMO US BIOPSY RIGHT Right 12/14/2021 Mammo Us Biopsy Right 12/14/2021 Delmi Gardner MD [facility] RAD MAMMOGRAPHY MAMMO US NEEDLE LOCALIZATION RIGHT Right 02/11/2022 Mammo US Needle Localization Right 02/11/2022 Gali Bosch MD [facility] MAMMOGR[facility]HY PRO BX/REMV, LYMPH NODE, DEEP AXILL Right 02/11/2022 BIOPSY OR EXCISION OF LYMPH NODE(S), OPEN, DEEP AXILLARY NODE(S) (WRVU 6.43) performed by Deshawn Gallego MD at [facility] MAIN OR PRO INTRAOP SENTINEL LYMPH ID W/DYE INJECTION Right 02/11/2022 INTRAOPERATIVE ID (MAPPING) SENTINEL LYMPH NODE,INCLUDES INJECTION (WRVU 2.5) performed by Deshawn Gallego MD at [facility] MAIN OR PRO MASTECTOMY PARTIAL Right 02/11/2022 MASTECTOMY PARTIAL (WRVU 10.13) performed by Deshawn Gallego MD at [facility] MAIN OR Csn x 3 Meds: [...] Pulmonary/Chest: Effort normal and breath sounds normal. LNs: shoddy [address] in bilateral axilla, subcm LN in bilateral cervical and scln areas. Breasts: Right breast: s/p RLE and SLNB. No masses or nipple discharge in right or left breast Tiny mobile lymph node high up in R axilla, benign feeling Has a keloid-like scar at the site [...] is normal A/P Lion Reilly is a 63 y.o. female With a stage 1 luminal breast cancer on the right who is s/p RLE and SLNB with a low oncotype scoreof 11 on anastrazole and tolerating well. She is enrolled on BR 007 and randomized to NO RT. I recommend the followin.Breast Cancer: Hormonal therapy x 10 years. Currently taking anastrazole. Tolerating well rx renewed. 2. Persistent Shoddy Lns. No prior infection or vaccinations. Labs today Consider US of right axilla. 3. Pending completion of pichardo for osteopenia. To do urine based labs but unable to get kit. Advised to call Endocrine. D 2 On BR007- No RT 3. Genetics - negative 4. RTC as per study protocol in 6 months Time spent: 40 minutes of which >50% was in discussion Future Appointments Date Time Provider Department Center 10/20/2023 1:00 PM Florencio Castillo RN [facility] H[facility] 10/20/2023 1:00 PM Sarah Yepez MD [facility] documented in this encounter Plan of Treatment Upcoming Encounters Date Type Department Care Team (Late st Contact Info) Description 05/08/2024 11:00 AM EDT Office Visit [place]ology [place] [address] Sarah Yepez MD [facility] [address] [place] [address] 01/16/2025 8:20 AM EDT Appointment Mammography/[place] [phone] Mary Mary PROFILING MACHINE SET UP OPERATOR TOOL [facility] [place] [place] [address] 01/16/2025 9:20 AM EDT Office [place] [phone] Mary Mary PROFILING MACHINE SET UP OPERATOR TOOL [facility] [place] [place] [address] documented as of this encounter Results * Cancer antigen 15-3 (10/20/2023 2:04 PM EDT) Pathologist [facility] [place] 15-3 14 <=25 unit/mL [facility] Comment: This result was generated using a Asif Fercho immunoassay. ??Results obtained from other methods or manufacturers cannot be used interchangeably with this method. Blood 10/20/2023 2:04 PM EDT 10/20/2023 2:19 PM EDT Narrative Resulting Agency Comment Spec In Lab Sarah Yepez MD CHEMISTRY ORDERABLES Performing Organization Address [facility] Co de Phone Number [facility] [place] [address] * CEA (10/20/2023 2:04 PM EDT) [facility] Carcinoembryonic Antigen 1.1 <=3.8 ng/mL [facility] Comment: Reference range: ??(20-69 years): [...] Yepez MD CHEMISTRY ORDERABLES Performing Organization Address [facility] Co de Phone Number [facility] [place] [address] * (ABNORMAL) Comprehensive metabolic panel (non-fasting) (10/20/2023 2:04 PM EDT) [facility] Glucose 86 65 - 199 mg/dL [facility] Comment:Diabetes: >=200 mg/d L plus symptoms Blood Urea Nitrogen 19(H) 8 - 18 mg/dL [facility] Creatinine 1.01 0.70 - 1.20 mg/dL [facility] Sodium 141 135 - 145 mmol/L [facility] Potassium 4.1 3.5 - 5.0 mmol/L [facility] Comment: Please note: ??Patients with WBC >100,000 may have falsely elevated Potassium levels. ??For accurate Potassium quantification in these patients send serum separator tube (gold top) for subsequent determinations. ??Contact the Clinical Chemistry Laboratory if there are any questions. Chloride 104 98 - 107 mmol/L [facility] Carbon Dioxide 29 22 - 31 mmol/L [facility] Anion Gap 8 5 - 15 mmol/L [facility] Calcium 9.7 8.5 - 10.5 mg/dL [facility] Protein, Total 6.7 6.1 - 8.0 g/dL [facility] Albumin 4.6 3.2 - 5.2 g/dL [facility] Aspartate Aminotransferase 24 0 - 30 unit/L [facility] Alanine Aminotransferase 20 0 - 30 unit/L [facility] Alkaline Phosphatase 66 35 - 105 unit/L [facility] Bilirubin, Total 0.6 0.2 - 1.3 mg/dL [facility] Est Glomerular Filtration Rate 62 >=60 mL/min/1. 73 m?? [facility] Comment: This patient's estimated GFR [...] In Lab Sarah Yepez MD CHEMISTRY [place]AB[place] [address] documented in this encounter Visit Diagnoses Diagnosis Malignant neoplasm of upper-outer quadrant of right breast in female, estrogen receptor positive documented in this encounter Care Teams Calender Let Off Operator Relationship Specialty Start Date End Date Brady Muller MD [address] [place] [id number] PCP - General General Internal Medicine 12/14/21 documented as of this encounter
--- OUTSIDE RECORDS SUMMARY | 2024-03-23 16:08 | XMS_ITS | Encounter Summary ---
Author Organization Formerly [facility] Address [facility] [place] [address] Care Team Providers Care Cooler Tender Name Role Phone Brady Muller MD Primary Care Provider [phone] Reason for Visit * Reason Comments Follow-up Encounter Details Date Type Department Care Team (Late st Contact Info) Description 04/07/2023 9:30 AM EDT Office Visit [place]ology [place] [address] Sarah Yepez MD [facility] [address] [place] [address] Malignant neoplasm of upper-outer quadrant of right [...] Sign Reading Time Taken Comments Blood Pressure 117/72 04/07/2023 9:00 AM EDT Pulse 66 04/07/2023 9:00 AM EDT Temperature 36.1 ??C (97 ??F) 04/07/2023 9:00 AM EDT Respiratory Rate 18 04/07/2023 9:00 AM EDT Oxygen Saturation 100% 04/07/2023 9:00 AM EDT Inhaled Oxygen Concentration - - Weight 65.6 kg (144 lb 10 oz) 04/07/2023 9:00 AM EDT Height 178.4 cm (5' 10.24) 04/07/2023 9:00 AM E DT Body Mass Index 20.61 04/07/2023 9:00 AM EDT documented in this encounter Progress Notes * Karishma Mcdonnell MD - 04/07/2023 9:30 AM EDT Lion Reilly is a 63 y.o. female with a stage 1 right luminal breast cancer On adjuvant anastrazole since 04/09/22 And of BR007, randomized to no RT. Surg Onc: Dr Gallego 04/07/2023 Mammo in December, Pending urine collection per Dr. Ruelas to [...] significant findings per her recollection Skin check: she will schedule Aviation Manager: 07/27/2022 Here for routine follow-up. 1. She [...] chops, red meat. She was recently [place] [employer] [place]. She does noticea relationship with alcohol. She is accepting of these side effects. She also has nausea in the special educator that is not new. Joint aches have [...] genetic counseling and is awaiting results of [employer]'s Common Hereditary Cancers Panel (buccal swab) Breast [...] No nodes 02/11/2022 RLE and SLNB (0/4) [id number] Path: MD IDC T= 0.8 cm Grade 2 No DCIS No LVI Neg margin No post op complications Enrolled in BR 007 and randomized to NO breast RT. anastrazole started 04/09/22 Genetics negative 2022 Past Medical History: Diagnosis Date Malignant neoplasm of right breast in female, estrogen receptor positive 12/18/2021 12/14/21 bx [facility]+/[place]+/HER2 pending right breast IDC, high grade Past Surgical History: Procedure Laterality Date BREAST BIOPSY Right 12/14/2021 IDC BREAST LUMPECTOMY Right 02/11/2022 MAMMO US BIOPSY RIGHT Right 12/14/2021 Mammo Us Biopsy Right 12/14/2021 Delmi Gardner MD [facility] RAD MAMMOGRAPHY MAMMO US NEEDLE LOCALIZATION RIGHT Right 02/11/2022 Mammo US Needle Localization Right 02/11/2022 Gali Bosch MD [facility] MAMMOGRAPHY PRO BX/REMV, LYMPH NODE, DEEP AXILL Right 02/11/2022 BIOPSY OR EXCISION OF LYMPH NODE(S), OPEN, DEEP AXILLARY NODE(S) (WRVU 6.43) performed by Deshawn Gallego MD at [facility] MAIN OR PRO INTRAOP SENTINEL LYMPH ID W/DYE INJECTION Right 02/11/2022 INTRAOPERATIVE ID (MAPPING) SENTINEL LYMPH NODE,INCLUDES INJECTION (WRVU 2.5) performed by Deshawn Gallego MD at [facility] MAIN OR PRO MASTECTOMY PARTIAL Right 02/11/2022 MASTECTOMY PARTIAL (WRVU 10.13) performed by Deshawn Gallego MD at [facility] MAIN OR Csn x 3 Meds: no [...] BR 007 and randomized to NO RT. She felt a small lymph node in her R axilla. Reassurance provided. Offered ultrasound evaluation however patient felt reassured by exam. Encouraged to maintain healthy lifestyle as she is doing. I recommend the followin.Breast Cancer: Hormonal therapy x 10 years. Currently taking anastrazole. rx renewed. DEXA showed osteopenia - referred to [facility]. Needs to finish up evaluation. She agreed to close the loop with them. 2 On BR007- No RT 3. Genetics - negative 4. RTC as per study protocol in 6 months Time spent: 40 minutes of which >50% was in discussion Future Appointments Date Time Provider Department Center 04/07/2023 9:00 AM Leeann Serrato RN [facility] 04/07/2023 9:30 AM Sarah Yepez MD [facility] I have seen and examined the patient in person and reviewed the Fellow's above history and I agree with the details as written. The assessment and plan were formulated in discussion with me and I agree with them as documented. Doing well on anastrazole. documented in this encounter Plan of Treatment Upcoming Encounters Date Type Department Care Team (Late st Contact Info) Description 05/08/2024 11:00 AM EDT Office Visit Hematology and Oncology at [place] [phone] Sarah Yepez MD [facility] [address] [place] [address] 01/16/2025 8:20 AM EDT Appointment Mammography/DXA at [place] [phone] Mary Mary [facility] [place] [address] 01/16/2025 9:20 AM EDT Office Visit General Surgery at [place] [phone] Mary Mary [facility] [place] [address] documented as of this encounter Visit Diagnoses Diagnosis Malignant neoplasm of upper-outer quadrant of right breast in female, estrogen receptor positive documented in this encounter Care Teams Cooler Tender Relationship Specialty Start Date End Date Brady Muller MD [address] [address] PCP - General General Internal Medicine 12/14/21 documented as of this encounter
--- OUTSIDE RECORDS SUMMARY | 2024-03-23 16:08 | XMS_ITS | Encounter Summary ---
Author Organization Formerly [facility] [place] [address] Care Team Providers Care Nursing Home Aide Name Role Phone Brady Muller MD Primary Care Provider [phone] Encounter Details Date Type Department Care Team (Latest Contact Info) Description 04/07/2023 Travel Social History Tobacco Use Types Packs/Day [...] EDT Office Visit Hematology and Oncology at [place] [phone] Sarah Yepez MD [facility] DR [place]EMAT[place] [address] 01/16/2025 8:20 AM EDT Appointment Mammography/[place] [address] Mary Mary APRN [facility] [place] [address] 01/16/2025 9:20 AM EDT Office [place] [address] Mary Mary PROMOTOR [employer] TICKET SALES [facility] [place] [address] documented as of this encounter Visit Diagnoses Not on filedocumented in this encounter Care Teams Nursing Home Aide Relationship Specialty Start Date End Date Brady Muller MD [address] [place] [id number] PCP - General General Internal Medicine 12/14/21 documented as of this encounter
--- OUTSIDE RECORDS SUMMARY | 2024-03-23 16:08 | XMS_ITS | Encounter Summary ---
[place] [address] Care Team Providers Care Account Services Manager Name Role Phone Brady Muller MD Primary Care Provider [phone] Encounter Details Date Type Department Care Team (Late st Contact Info) Description 11/30/2022 Telephone [place] [phone] Herberth Friend, RN Social History Tobacco Use Types Packs/Day Years [...] place to sleep or slept in a assisted (including now)? No 03/04/2022 Sex and Gender Information Value Date Recorded Sex Assigned at Not on file Gender Identity Not on file Sexual Orientation Not on file documented as of this encounter Miscellaneous Notes * Telephone Encounter - Herberth Friend RN - 11/30/2022 10:45 AM EDT Left voicemail for patient that lab orders are in and she needs to go to the lab to pick up worker the collection supplies for the 24 hour urine. * Telephone Encounter - Herberth Friend RN - 11/30/2022 10:45 AM EDT ----- Message from Marilee Ruelas MD sent at 11/30/2022 10:34 AM EDT ----- Regarding: RE: pt followup Thank you for letting me know but all labs were ordered during appointment. Herberth, can you please call her and let her know to do them all. Thanks ----- Message ----- From: Sarah Yepez MD Sent: 11/30/2022 10:27 AM EDT To: Marilee Ruelas MD Subject: pt followup Hi. Moreno shannaele. I saw this pt today and she said she was waiting for a urine collection system césar sent from your office. You saw her in September. So just reminding the office. Thanks documented in this encounter Plan of Treatment Upcoming Encounters Date Type Department Care Team (Late st Contact Info) Description 05/08/2024 11:00 AM EDT Office Visit Hematology [place] [address] Sarah Yepez MD [facility] [address] [place] [address] 01/16/2025 8:20 AM EDT Appointment Mammography/[place] [phone] Mary Mary APRN [facility] [place] [address] 01/16/2025 9:20 AM EDT Office Visit [place] [phone] Mary Mary, MARKETING AUTOMATION ANALYST [facility] [place] [address] documented as of this encounter Visit Diagnoses Not on filedocumented in this encounter Care Teams Account Services Manager Relationship Specialty Start Date End Date Brady Muller MD [address] [place] [id number] PCP - General General Internal Medicine 12/14/21 documented as of this encounter
--- OUTSIDE RECORDS SUMMARY | 2024-03-23 16:08 | XMS_ITS | Encounter Summary ---
Author Organization [facility] [place] [address] Care Team Providers Care Chimney Builder Helper Name Role Phone Brady Muller MD Primary Care Provider [phone] Encounter Details Date Type Department Care Team (Late st Contact Info) Description 11/30/2022 Orders [place] [address] Marilee Ruelas MD [facility] [place] [address] Osteoporosis, unspecified osteoporosis type, unspecified pathological fracture presence Social History Tobacco Use Types Packs/Day Years [...] place to sleep or slept in a half-way (including now)? No 03/04/2022 Sex and Gender Information Value Date Recorded Sex Assigned at Not on file Gender Identity Not on file Sexual Orientation Not on file documented as of this encounter Plan of Treatment Upcoming Encounters Date Type Department Care Team (Late st Contact Info) Description 05/08/2024 11:00 AM EDT Office Visit Hematology and Oncology at [place] [address] Sarah Yepez MD [facility] DR HEMATOLOGY [place] [address] 01/16/2025 8:20 AM EDT Appointment Mammography/DXA at [place] [address] [facility] [place] [address] 01/16/2025 9:20 AM EDT Office Visit General Surgery at [place] [address] Mary Mary BRUSH TRIMMING MACHINE SETTER [facility] [place] [address] documented as of this encounter Visit Diagnoses Diagnosis Osteoporosis, unspecified osteoporosis type, unspecified pathological fracture presence documented in this encounter Care Teams Chimney Builder Helper Relationship Specialty Start Date End Date Brady Muller MD [address] [address] PCP - General General Internal Medicine 12/14/21 documented as of this encounter
--- OUTSIDE RECORDS SUMMARY | 2024-03-23 16:08 | XMS_ITS | Encounter Summary ---
Author Organization [facility] [place] [address] Care Team Providers Care Support Assistant Name Role Phone Brady Muller MD Primary Care Provider [phone] Encounter Details Date Type Department Care Team (Latest Contact Info) Description 07/26/2023 Travel Social History Tobacco Use Types Packs/Day [...] place to sleep or slept in a fpc (including now)? No 03/04/2022 Sex and Gender Information Value Date Recorded Sex Assigned at Not on file Gender Identity Not on file Sexual Orientation Not on file documented as of this encounter Plan of Treatment Upcoming Encounters Date Type Department Care Team (Late st Contact Info) Description 05/08/2024 11:00 AM EDT Office Visit Hematology and Oncology at [place] [phone] Sarah Yepez MD [facility] DR HEMATOLOGY [place] [address] 01/16/2025 8:20 AM EDT Appointment Mammography/[place] [address] Mary Mary APRN [facility] [place] [address] 01/16/2025 9:20 AM EDT Office [place] [address] Mary Mary DOMINATRIX [facility] [place] [address] documented as of this encounter Visit Diagnoses Not on filedocumented in this encounter Care Teams Support Assistant Relationship Specialty Start Date End Date Brady Muller MD [address] [place] [id number] PCP - General General Internal Medicine 12/14/21 documented as of this encounter
--- OUTSIDE RECORDS SUMMARY | 2024-03-23 16:08 | XMS_ITS | Encounter Summary ---
Author Organization [facility] [place] [address] Care Team Providers Care Safety Investigator Name Role Phone Brady Muller MD Primary Care Provider [phone] Reason for Visit * Reason Comments Skin Check Encounter Details Date Type Department Care Team (Late st Contact Info) Description 07/26/2023 10:30 AM EST Office Visit Dermatology at [place] [address] [place] [phone] Marvel Shaw MD [address] [facility] [place] [address] Nevus of abdominal wall Social History Tobacco Use Types Packs/Day Years [...] as of this encounter Progress Notes * Marvel Shaw MD - 07/26/2023 10:30 AM EST Problem: 1. Skin checkup 2. No family history of any skin cancer Lion would like to have a general skin checkup. She is here at the recommendation of her DYNAMICIST. She denies any personal or family history of skin cancer or melanoma. Physical examination reveals a pleasant 63-year-old woman who has very fair skin, blue eyes, type II Jamison pigmentation, and numerous freckles all over the torso. She has moderate fibroelastic damage. She has a benign examination of the head and neck the chest the back the hands on forearms thighs and calves. There is no evidence of any cutaneous malignancies. She has a number of merlos redhemangiomas on the torso and extremities. Assessment plan: Benign skin examination 1. Patient was reassured about her benign skin examination 2. Patient is aware of her past sunburns and photodamage. She is very observant and carefully following sun protection now. 3. She is using SPF 50 if she is out of doors for more than 20 minutes in the summer months. She uses a daily moisturizer with SPF 15-30. 4. The patient was given the AAD brochure on recognition of skin cancer. Discussed the recognition of melanoma and nonmelanoma skin cancer types. 5. Return to clinic here will be on a prn basis. CC: Brady Muller MD documented in this encounter Plan of Treatment Upcoming Encounters Date Type Department Care Team (Late st Contact Info) Description 05/08/2024 11:00 AM EDT Office Visit Hematology and Oncology at [place] [phone] Sarah Yepez MD [facility] [address] [place] [address] 01/16/2025 8:20 AM EDT Appointment Mammography/DXA at [place] [phone] Mary Mary [facility] [place] [address] 01/16/2025 9:20 AM EDT Office Visit General Surgery at [place] [phone] Mary Mary [facility] [place] [address] documented as of this encounter Visit Diagnoses Diagnosis Nevus of abdominal wall Benign neoplasm of skin of trunk, except scrotum documented in this encounter Care Teams Safety Investigator Relationship Specialty Start Date End Date Brady Muller MD [address] [place] [id number] PCP - General General Internal Medicine 12/14/21 documented as of this encounter
--- OUTSIDE RECORDS SUMMARY | 2024-03-23 16:08 | XMS_ITS | Clinical Summary ---
Author Organization [facility] [place] [address] Care Team Providers Care Cane Burner Name Role Phone Brady Muller MD Primary Care Provider [phone] Allergies No known active allergies Medications Medication Sig Dispensed Refills Start Date End Date Status estradioL (VAGIFEM) [address] 1 tablet vaginally daily. 40 tablet 3 07/27/2022 Active Additional Information Patient not taking.Reported on 10/20/2023 valACYclovir (Valtrex) 1 gram tablet TAKE ONE TABLET BY MOUTH THREE TIMES A DAY DIRECTED 04/12/2023 Active anastrozole (Arimidex) 1 mg tablet Take 1 tablet by mouth daily. 90 tablet 3 10/20/2023 10/19/2024 Active Active Problems Problem Noted Date Diagnosed Date Vaginal dryness 01/14/2024 Vitamin B12 deficiency 01/14/2024 Malignant neoplasm of upper- inner quadrant of right breast in female, estrogen receptor positive 12/18/2021 Overview (12/18/2021): 12/14/21 bx [facility] [place]: ER+/OR+/HER2 pending right breast IDC, high grade Encounters Date Type Department Care Team Description 01/18/2024 3:18 PM EDT - 01/18/2024 11:59 PM EDT Hospital En[place] [address] Arabella Tejeda MD Inconclusive mammogram Discharge Disposition: Home 01/18/2024 Travel 01/16/2024 9:20 AM EDT Office [place] [address] Delmi Robins APRN Huntley-Smith, Carol A, APRN Encounter for follow-up surveillance of breast cancer; Malignant neoplasm of upper-inner quadrant of right breast in female, estrogen receptor positive; Heterogeneously dense tissue of both breasts on mammography; Breast cancer screening by mammogram 01/16/2024 8:07 AM EDT - 01/16/2024 11:59 PM EDT Hospital Encounter Mammography/[place] [address] Delmi Robins APRN Malignant neoplasm of upper-outer quadrant of right breast in female, estrogen receptor positive Discharge Disposition: Home 01/16/2024 Travel from Last 3 Months Family History Medical History Relation Comments Liver Cancer Maternal Grandmother Stomach Cancer Maternal Grandmother Breast Cancer Paternal Grandmother B/l mastect tressa Ovarian Cancer Neg Hx Relation Status Comments Brother Alive Father Maternal Grandfather Maternal Grandmother Mother Paternal Grandfather Paternal Grandmother Sister Alive Social History Tobacco Use Types Packs/Day Years [...] on file Sexual Orientation Not on file Last Filed Vital Signs Vital Sign Reading [...] M EDT Height 177.9 cm (5' 10.04) 01/16/2024 9:26 AM E DT Body Mass Index 21.23 10/20/2023 1:09 PM EDT Plan of Treatment Upcoming Encounters Date Type Department Care Team (Late st Contact Info) Description 05/08/2024 11:00 AM EDT Office Visit Hematology [place] [phone] Sarah Yepez MD [facility] [address] HEMATOLOGY [place] [address] 01/16/2025 8:20 AM EDT Appointment Mammography/[place] [address] Mary Mary APRN [facility] [place] [address] 01/16/2025 9:20 AM EDT Office [place] [phone] Mary Mary APRN [facility] [place] [address] Health Maintenance Due Date Last Done Comments CT Colonography 1959 Colonoscopy 1959 Colorectal Cancer Screening 1959 FIT DNA 1959 FIT 1959 Sigmoidoscopy (10 year) with FIT yearly 1959 Sigmoidoscopy 1959 HIV screen 1977 Hepatitis C Screening 1977 Tdap adult 1978 Tetanus vaccine 1978 HPV test 1989 PAP Smear 1989 Breast Cancer Share Decision Needed 1999 Zoster vaccine (1 of 2) 2009 Advance Directive 2014 Covid-19 Vaccine (1 - season) 2023 Pneumoccocal Vaccine: 65+ (1 of 1 - PCV) 2024 Influenza (Flu) vaccine (1 o f 1 - Influenza standard series) 03/25/2024 Breast Cancer screening 01/15/2026 01/16/2024, 01/17 Bone Density Scan 05/07/2037 05/07/2022 Medical Devices Implanted Type Area Mushroom Growth Media Mixer Device Identifier Shelf Expiration Date Model / Serial / Lot Breast Clip-12/14/2021 Implanted:Qty: 1 on 12/14/2021 by Delmi Gardner MD Breast Clip Right: Breast [id number] / / [id number] Description:SENOMARK ULTRACO R MAKRER - FABIO Procedures Procedure Name Priority Date/Time Associated Diagnosis Comments MAMMO CALL BACK NO CHARGE Routine 01/18/2024 3:32 PM EDT Inconclusive mammogram MAMMO SCREENING CAD AND MARCOS BILATERAL Routine 01/16/2024 8:23 AM EDT Malignant neoplasm of upper-outer quadrant of right breast in female, estrogen receptor positive DXA CENTRAL SPINE, HIP, AND/OR WHOLE BODY (GENERIC) Routine 05/07/2022 2:22 PM EDT Malignant neoplasm of breast in female, estrogen receptor positive, unspecified laterality, unspecified site of breast from Last 3 Months or Most Recently Relevant to Health Maintenance Results * Mammo Call Back No Charge (01/18/2024 3:32 PM EDT) WORKSTATION ID [id number] 1 RAD Anatomical Region Laterality Modality Breast N/A Mammography Impressions 01/18/2024 3:48 PM EDT No mammographic evidence of malignancy. MANAGEMENT: Annual screening mammography. For women with a personal history of breast cancer and dense breast tissue, or those diagnosed before age 50, annual surveillance with breast MRI is recommended. FINAL ASSESSMENT: BI-RADS Category 2: Benign A result letter has been sent to this patient by the [facility]. * ??Individuals should report any breast changes to a health care provider right away. * ??Screening mammography may not detect 10-15% of?breast cancers. Thank you for letting us participate in the care of this patient. ??If you are a health care provider and have any questions regarding this report, please contact the number below. ??For patients who have questions please contact the health child care center assistant director that requested your imaging first. ? Narrative 01/18/2024 3:48 PM EDT EXAMINATION: MAMMO CALL BACK NO CHARGE CLINICAL HISTORY: Callback from recent screening mammogram. Repeat views obtained of right breast(s) due to technical inadequacy. TECHNIQUE AND VIEWS OBTAINED: CC and MLO views were obtained of both breast(s). 2D and 3D tomosynthesis images were obtained as needed. Computer aided detection was used. COMPARISON: Prior images BREAST DENSITY: The breast tissue is heterogeneously dense, which may obscure small masses. FINDINGS: Repeat right cc views exaggerated lateral and exaggerated medial were performed. The lumpectomy cavity is far posterior central breast, best seen on the lateral view and exaggerated CC lateral. No definitive interval change. There are no suspicious microcalcifications, masses, or areas of unexplained distortion in either breast. No significant changes compared to prior studies. Arabella Edwards MD IMG MAMMO ORD ERABLES * Mammo Screening Cad and Marcos Bilateral (01/16/2024 8:23 AM EDT) Invenergy WORKSTATION ID [id number] 2 DH RAD Anatomical Region Laterality Modality [...] who have questions please contact the health child care center assistant director that requested your imaging first. ? Electronically signed by: Arabella Edwards MD, [facility] ([phone]), at 01/16/2024 9:05 AM Narrative 01/16/2024 9:05 [...] the Right breast is indicated. Delmi Robins SUPERVISOR SEWING DEPARTMENT IMG MAMMO ORDERABLE S * DXA Central Spine, Hip, and/or Whole Body (Generic) (05/07/2022 2:22 PM EDT) Anatomical Region Laterality Modality C-spine, Hip N/A Other Impressions 05/07/2022 4:30 PM EDT Measurements meet WHO criteria for osteopenia. Estimating Fracture Risk: ? The relationship between bone mineral density (BMD) and risk of fracture is well established. As BMD decreases, risk increases. Quantifying risk is difficult and is usually limited to estimation of the relative risk - a term which may have limited value when trying to discuss an individual's risk. Estimating the absolute risk for a patient requires an understanding of the incidence rate in a given population and consideration of multiple, partially independent, risk factors in addition to BMD. ? The World Health Organization (WHO) has developed a fracture risk prediction tool that calculates a ten-year risk of major osteoporotic fracture based on femoral neck bone density measurements and nine clinical risk factors for individuals who have not been treated for osteoporosis. This is available through an interactive web-based interface (http://www.shef.ac.uk/FRAX/) and can be used to estimate a given patient's absolute risk of major osteoporotic fracture or hip fracture over the next 10 years. These estimates may prove useful when discussing risk with a patient. It is important, however, to understand the tool's limitations and how a given individual's risk might differ from the tool's estimate. The tool does not take into account the dose-response associated with most risk factors. For example, the significant increase in risk associated with multiple prior fractures compared to a single prior fracture is not taken into account. Similarly, the location of a previous fracture, the amount of glucocorticoids and number of cigarettes smoked are not considered. These limitations are discussed in a Frequently Asked Questions section of the FRAX website which you are encouraged to review. ? DEXA data sheets with BMD measurements and plots are available in EExajoule under the imaging tab. Paper copies will be sent to providers without E- access. If you have received this report without the data sheet and do not have access to EExajoule, please contact Radiology Truss Builder at [phone] Tuesday thru Tuesday 8am-4pm. ? Bone Density Report ? Name: ?Lion Reilly Age: ? 62 Sex: ? Female Ethnicity: ? White Date of : 1960 Referring Provider: SARAH YEPEZ Study: Bone densitometry was performed. Exam Date: May 07, 2022 Accession number: [id number] Bone Density: Region ? BMD ?T-score ??Z-score ? AP Spine(L1-L4) ?0.911 ?? -1.2 ?0.4 ? Femoral Neck (Left) ? 0.718 ?? -1.2 ?0.2 ? Total Hip (Left) ? 0.897 ?? -0.4 ?0.7 ? World Health Organization criteria for BMD impression classify patients as: Normal (T-score at or above -1.0), Osteopenia (T-score between -1.0 and -2.5), or Osteoporosis (T-score at or below -2.5). Reported by: ?? on 05/07/2022 2:23:00 PM. Thank you for letting us participate in the care of this patient. ??If you are a health care provider and have any questions regarding this report, please contact the number below. ??For patients who have questions please contact the health child care center assistant director that requested your imaging first. ? 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 COMPARISON: None FINDINGS: Femoral neck BMD: 0.718 g/cm2 Lowest T-score at a diagnostic region of interest: T-score: -1.2, MARTHA: Lumbar spine and femoral neck, WHO diagnosis: ??osteopenia. Procedure Note Janey Dejesus MD - 05/07/2022 EXAMINATION: DXA CENTRAL SPINE, HIP, AND/OR WHOLE BODY (GENERIC) CLINICAL HISTORY: 62 years Female jail current use of aromataseinhibitor for breast cancer (as entered by ordering provider) TECHNIQUE: Scans were acquired at the lumbar spine and left hip usingthe All Def Digital A system. COMPARISON: None FINDINGS: Femoral neck BMD: 0.718 g/cm2 Lowest T-score at a diagnostic region of interest: T-score: -1.2, MARTHA: Lumbar spine and femoral neck, WHO diagnosis:osteopenia. IMPRESSION Measurements meet WHO criteria for osteopenia. Estimating Fracture Risk: ? The relationship between bone mineral density (BMD) and risk of fractureis well established. As BMD decreases, risk increases. Quantifying risk isdifficult and is usually limited to estimation of the relative risk - a term which mayhave limited value when trying to discuss an individual's risk. Estimatingthe absolute risk for a patient requires an understanding of the incidencerate in a given population and consideration of multiple, partially independent,risk factors in addition to BMD. ? The World Health Organization (WHO) has developed a fracture riskprediction tool that calculates a ten-year risk of major osteoporotic fracture basedon femoral neck bone density measurements and nine clinical risk factorsfor individuals who have not been treated for osteoporosis. This isavailable through an interactive web-based interface (http://www.shef.ac.uk/FRAX/)and can be used to estimate a given patient's absolute risk of majorosteoporotic fracture or hip fracture over the next 10 years. These estimates mayprove useful when discussing risk with a patient. It is important, however, to understand the tool's limitations and how a given individual's risk mightdiffer from the tool's estimate. The tool does not take into account thedose-response associated with most risk factors. For example, the significant increasein risk associated with multiple prior fractures compared to a single priorfracture is not taken into account. Similarly, the location of a previous fracture,the amount of glucocorticoids and number of cigarettes smoked are notconsidered. These limitations are discussed in a Frequently Asked Questions sectionof the FRAX website which you are encouraged to review. ? DEXA data sheets with BMD measurements and plots are available in E-DHunder the imaging tab. Paper copies will be sent to providers without [employer] access.If you have received this report without the data sheet and do not haveaccess to EExajoule, please contact Radiology [facility] Builder at [phone] Tuesday thruFriday 8am-4pm. Bone Density Report Name: Lion Reilly Age: 62 Sex: Female Ethnicity: White Date of : 1960 Referring Provider: SARAH YEPEZ Study: Bone densitometry was performed. Exam Date: May 07, 2022 Accession number: [id number] Bone Density: Region BMD T-score Z-score AP Spine(L1-L4) 0.911 -1.2 0.4 Femoral Neck (Left) 0.718 -1.2 0.2 Total Hip (Left) 0.897 -0.4 0.7 World Health Organization criteria for BMD impression classify patients as: Normal (T-score at or above -1.0), Osteopenia (T-score between -1.0 and -2.5), or Osteoporosis (T-score at or below -2.5). Reported by: on 05/07/2022 2:23:00 PM. Thank you for letting us participate in the care of this patient. If youare a health care provider and have any questions regarding this report,please contact the number below. For patients who have questions please contactthe health child care center assistant director that requested your imaging first. Electronically signed by: Janey Dejesus MD, [facility]([phone]), at 05/07/2022 4:30 PM Sarah Yepez MD IMG DEXA ORDERABLES from Last 3 Months or Most Recently Relevant to Health Maintenance Advance Directives * Attempt Cardiopulmonary Resuscitation - Inpatient (Latest Code Status on File) Date Activated Date Inactivated Comments 02/11/2022 1:32 PM 02/11/2022 8:09 PM Question Answer Comments Code Status decision made by: Patient Care Teams Cane Burner Relationship Specialty Start Date End Date Brady Muller MD [address] [address] PCP - General General Internal Medicine 12/14/21
--- OUTSIDE RECORDS SUMMARY | 2024-03-23 16:08 | XMS_ITS | Encounter Summary ---
Author Organization [facility] [address] Care Team Providers Care Estate Tax Examiner Name Role Phone Brady Muller MD Primary Care Provider [phone] Reason for Visit * Reason Comments Genetic Evaluation * Consultation (Routine) - Closed Specialty Diagnoses / Procedures Referred By Patience menon Referred To Contact Hematology and Oncology Diagnoses Malignant neoplasm of upper-outer quadrant of right breast in female, estrogen receptor positive Sarah Yepez MD [facility] DR HEMATOLOGY [place] [address] [facility] Onc [address] [place] [address] Referral ID Status Reason Start Date Expiration Date V isits Requested Visits Authorized [id number] Closed Consult, Test & Treat 03/04/2022 03/04/2023 1 1 Encounter Details Date Type Department Care Team (Late st Contact Info) Description 05/28/2022 1:00 PM EDT TH Visit (TeleHealth) Hematology [place] [address] Ileana De Souza, [facility] DR HEMATOLOGY [place] [address] Malignant neoplasm of upper-outer quadrant of right breast in female, estrogen receptor positive; Family history of malignant neoplasm of breast; Family history of malignant neoplasm of digestive organ Social History Tobacco Use Types Packs/Day Years [...] as of this encounter Progress Notes * Ileana Worley LGC - 05/28/2022 1:00 PM EDT Lion Reilly was seen by DB Ocampo in consultation at the request of Sarah Yepez to advise regarding possible heritable predisposition to cancer. I spent 32 minutes of this telephone encounter with the patient gathering medical and family history and discussing the likelihood of a genetic predisposition to cancer and the option of genetic testing. Reason for referral/Chief complaint Personal history of breast cancer and family history of breast cancer. Medical history Cancer hx and treatment: Lion is a 62 y.o. 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 Lion underwent a lumpectomy on 02/11/2022 and subsequently signed consent for BR007 (A Phase III Clinical Trial Evaluating DE-escalation of Breast RAdiation (BJORN) for Conservative Treatment of Stage I, Hormone Sensitive, HER2-Negative, Oncotype RecurrenceScore < 18 Breast Cancer) on 04/05/22 where Lion was randomized to Arm 2: NO Breast Radiation + endocrine therapy under the care of Dr. Sarah Yepez. Lion is planned to start endocrine therapy per Dr. Yepez's instructions. Family History of Cancer Problem Relation Age of Onset ??? Stomach Cancer Maternal Grandmother 80 ??? Liver Cancer Maternal Grandmother 80 ??? Breast Cancer Paternal Grandmother 80 B/l mastectomy There is no known Ashkenazi Restorationism ancestry. Genetic risk assessment Based on personal and/or family history, the likelihood that Lion would be found to have a mutation in a cancer predisposition gene is high enough to offer the option of genetic testing. While Sashas not meet any current criteria for genetic testing, it is possible that she would with further family history information that is not available at this time and therefore it is reasonable for Lion to pursue the option for genetic testing today. We reviewed the likelihood of insurance denial, in which case Lion would have the option to self-pay for a maximum of $250. We discussed the purposeof testing such as the possibility of identifying??additional??screening and??medical management??re commendations, as well as identifying hereditary cancer risk for other family members. We reviewed the lifetime cancer risks and medical management recommendations associated with mutations in the BRCA1 and BRCA2 genes, including high-risk breast cancer screening with mammography and breast MRIs vs prophylactic bilateral mastectomy, as well as prophylactic removal of the ovaries and f allopian tubes (bilateral salpingo-oophorectomy). Panel genetic testing for an inherited predisposition to cancer, including breast cancer, was discussed. The risks, benefits and limitations of panel genetic testing were reviewed, specifically a high rate of identifying a variant of uncertain significance, lack of knowledge of cancer risk for newly identified, moderate risk genes included in the panel and lack of effective screening, as well as cancer risk for other cancers not observed in the family. We reviewed dominant inheritance, meaning that if a mutation is detected there is a 50% chance for Lion's children and siblings to have also inherited the same gene alteration. The Genetic Information Nondiscrimination Act (SHIRLENE) is a federal law prohibiting discrimination byhealth insurance companies and most employers based on genetic information. SHIRLENE does not apply to life insurance, disability insurance or long-term care insurance. More information about SHIRLENE may befound at www.GinaHelp.org. Lion opted for testing with [facility] Common Hereditary Cancers Panel, a next generation sequencing panel that simultaneously analyzes 47 genes, including BRCA1 and BRCA2, that contribute to increased risk for cancer. Lion was verbally consented and will be sent consent forms via [employer] to review, sign, and return. Orders for the buccal swab kit will be placed after signed consents are received. [facility] will send a buccal swab kit with prepaid return envelope directly to Lion's home to obtain a sample. Instructions for sample collection and return are provided within the kit. We reviewed [facility]'s billing policy. Lion will be notified by text and/or email regarding her estimated out of pocket cost for testing once [employer] completes their benefits investigation. At that time, if Lion is concerned about the estimated test cost she will have the option to contact [facility] directly and either apply for [facility]'s patient assistance program to try and reduce cost of testing based on income information, cancel testing, or switch to a self-pay option of $250. If Lion doesnot respond to [facility], testing will be billed to her insurance as the default option. Testing will take up to 3 weeks from when the lab receives the sample. Lion will be contacted via telephone once her test results become available. If positive, we will offer a follow-up appointment. At that time, we will discuss with Lion the implications that this test result may have for her, as well as her family members. We will also provide Lion with screening guidelines for cancer prevention and early detection, as well as answer any questions she may have. documented in this encounter Plan of Treatment Upcoming Encounters Date Type Department Care Team (Late st Contact Info) Description 05/08/2024 11:00 AM EDT Office Visit Hematology [place] [address] Sarah Yepze MD [facility] DR HEMATOLOGY [place] [address] 01/16/2025 8:20 AM EDT Appointment Mammography/[place] [address] Mary Mary, [facility] [place] [address] 01/16/2025 9:20 AM EDT Office Visit General Surgery at [place] [phone] Mary Mary, [facility] [place] [address] Scheduled Referrals Name Type Priority Associated Diagnoses Orde r Schedule Referral to Familial Cancer Outpatient Referral Routine Malignant neoplasm of upper-outer quadrant of right breast in female, estrogen receptor positive Ordered: 03/04/2022 documented as of this encounter Visit Diagnoses Diagnosis Malignant neoplasm of upper-outer quadrant of right breast in female, estrogen receptor positive Family history of malignant neoplasm of breast Family history of malignant neoplasm of digestive organ Family history of malignant neoplasm of gastrointestinal tract documented in this encounter Care Teams Estate Tax Examiner Relationship Specialty Start Date End Date Brady Muller MD [address] [place] [id number] PCP - General General Internal Medicine 12/14/21 documented as of this encounter
--- OUTSIDE RECORDS SUMMARY | 2024-03-23 16:08 | XMS_ITS | Encounter Summary ---
Author [facility] [place] [address] Care Team Providers Care Systems Integration Advisor Name Role Phone Brady Muller MD Primary Care Provider [phone] Reason for Visit * Reason Onset Date Comments Results 07/28/2022 Encounter Details Date Type Department Care Team (Late st Contact Info) Description 07/28/2022 Telephone Hematology [place] [phone] [facility] [address] Results Social History Tobacco Use Types Packs/Day Years [...] place to sleep or slept in a long-term (including now)? No 03/04/2022 Sex and Gender Information Value Date Recorded Sex Assigned at Not on file Gender Identity Not on file Sexual Orientation Not on file documented as of this encounter Miscellaneous Notes * Telephone Encounter - Geremias Cline V [facility] - 07/28/2022 4:38 PM EST This test result was discussed with the patient by phone. A copy of the test results have been scanned in the medical record and sent to Lion. A summary of the results is provided below. Please be advised that [place] law requires that all health care workers respect the confidentiality of this information and not pass it along to other health care providers, insurance companies, or individuals without the written permission of the patient. The Familial Cancer Program welcomes any questions about these matters. Our phone number is: [phone]. On 05/28/2022 Lion was seen for genetic counseling and subsequently underwent genetic testing for a hereditary predisposition to common hereditary cancers, including breast, gynecologic and gastrointestinal. Following are the results of this test. Result: [facility] Common [facility] showed no mutation was detected. This means that Lion does not carry a mutation in the genes detectable by this test. The following 47 genes were evaluated for sequence changes and exonic deletions/duplications: APC, MONICO, AXIN2, BARD1, BMPR1A, BRCA1, BRCA2, BRIP1, CDH1, CDK4, CDKN2A (p14ARF), CDKN2A (b12KQX3g), CHEK2, CTNNA1, DICER1, EPCAM (EPCAM: Deletion/duplication testing only ([id number]), GREM1 (GREM1: Promoter region deletion/duplication testing only.), HOXB13, KIT, MEN1, MLH1, MSH2, MSH3, MSH6, MUTYH, NBN, NF1, NTHL1, PALB2, PDGFRA, PMS2, POLD1, POLE, PTEN, RAD50, RAD51C, RAD51D, SDHB, SDHC, SDHD, SMAD4, SMARCA4, STK11, TP53, TSC1, TSC2, VHL. The following gene was evaluated for sequence changes only: SDHA. Interpretation: This test did not identify an underlying genetic cause for the personal or family history of breastcancer. Possible explanations for this negative test result include: ?? Lion's cancer and the cancer in her family may be due to non genetic, environmental causes. ?? There could be a mutation in Lion's family that Lion did not inherit. ?? There could be mutations in other cancer genes not included in this test, or in genes yet to be discovered. ?? There is a very small chance that a pathogenic variant/mutation could be missed due to limitations in the testing. Additional genetic testing for Lion is not recommended at this time. Screening Recommendations Based on genetic test results and personal and/or family history, we recommend: Breast cancer screening ?? Clinical breast exams and imaging as recommended by Lion's oncologists. Gynecologic cancer screening ?? Pelvic exams and/or Pap smears as recommended by Lion's farm hand or primary care provider. Colon cancer screening ?? Routine colorectal cancer screening starting by age 45-50 is important for everyone, regardless of genetic predisposition. ?? Periodic colonoscopy screening as recommended by Lion's manager collection. Skin cancer screening ?? Skin cancer screening and sun protection are important for everyone, regardless of genetic predisposition. ?? Consideration of routine dermatologic/skin exams, as recommended by Lion's primary care provider or repairer welding equipment. documented in this encounter Plan of Treatment Upcoming Encounters Date Type Department Care Team (Late st Contact Info) Description 05/08/2024 11:00 AM EDT Office Visit Hematology [place] [address] Sarah Yepez MD [facility] DR HEMATOLOGY [place] [address] 01/16/2025 8:20 AM EDT Appointment Mammography/[place] [address] Mary Mary, ENGINEERING PROFESSOR [facility] [place] [address] 01/16/2025 9:20 AM EDT Office Visit [place] [address] Mary Mary, ENGINEERING PROFESSOR [facility] [place] [address] documented as of this encounter Visit Diagnoses Not on filedocumented in this encounter Care Teams Systems Integration Advisor Relationship Specialty Start Date End Date Brady Muller MD [address] [place] [address] PCP - General General Internal Medicine 12/14/21 documented as of this encounter
--- OUTSIDE RECORDS SUMMARY | 2024-03-23 16:08 | XMS_ITS | Encounter Summary ---
Author Organization [facility] [place] [address] Care Team Providers Care Second Grade Teacher Name Role Phone Brady Muller MD Primary Care Provider [phone] Reason for Referral * Consultation (Routine) - Closed Specialty Diagnoses / Procedures Referred By Patience menon Referred To Contact Endocrinology Diagnoses Malignant neoplasm of breast in female, estrogen receptor positive, unspecified laterality, unspecified site of breast Sraah Yepez MD [facility] DR [place] [address] Marilee Ruelas MD [facility] [place] [place] [address] Referral ID Status Reason Start Date Expiration Date V isits Requested Visits Authorized [id number] Closed Consult, Test & Treat 05/13/2022 05/13/2023 1 1 Encounter Details Date Type Department Care Team (Late st Contact Info) Description 05/13/2022 Orders Only [place]ology [place] [address] Sarah Yepez MD [facility] DR [place]EMAT[place] [address] Malignant neoplasm of breast in female, estrogen receptor positive, unspecified laterality, unspecified site of breast Social History Tobacco [...] EDT Office Visit [place]ology [place] [address] Sarah Yepez MD [facility] [place] [address] 01/16/2025 8:20 AM EDT Appointment Mammography/[place] [phone] Mary Mary APRN [facility] [place] [place] [address] 01/16/2025 9:20 AM EDT Office [place] [address] Mary Mary APRN [facility] [place] [address] Scheduled Referrals Name Type Priority Associated Diagnoses Order Schedule Referral to Endocrinology Outpatient Referral Routine Malignant neoplasm of breast in female, estrogen receptor positive, unspecified laterality, unspecified site of breast Ordered: 05/13/2022 documented as of this encounter Visit Diagnoses Diagnosis Malignant neoplasm of breast in female, estrogen receptor positive, unspecified laterality, unspecified site of breast documented in this encounter Care Teams Second Grade Teacher Relationship Specialty Start Date End Date Brady Muller MD [address] [place] [phone] PCP - General General Internal Medicine 12/14/21 documented as of this encounter
--- OUTSIDE RECORDS SUMMARY | 2024-03-23 16:08 | XMS_ITS | Encounter Summary ---
Author Organization [facility] [place] [address] Care Team Providers Care Performing Artist Name Role Phone Brady Muller MD Primary Care Provider [phone] Encounter Details Date Type Department Care Team (Latest Contact Info) Description 01/18/2024 3:18 PM EDT - 01/18/2024 11:59 PM EDT Hospital Encounter [place] [address] Arablela Tejeda MD [facility] [place] [address] Inconclusive mammogram Discharge Disposition: Home Social History Tobacco Use [...] EDT Office Visit Hematology [place] [address] Sarah Yepez MD [facility] [place] [address] 01/16/2025 8:20 AM EDT Appointment Mammography/[place] [address] Mary Mary APRN [facility] [place] [address] 01/16/2025 9:20 AM EDT Office Visit General Surgery at [place] [phone] Mary Mary APRN [facility] [place] [address] documented as of this encounter Procedures Procedure Name Priority Date/Time Associated Diagnosis Comments MAMMO CALL BACK NO CHARGE Routine 01/18/2024 3:32 PM EDT Inconclusive mammogram documented in this encounter Results * Mammo Call Back No Charge [...] who have questions please contact the health health careers instructor that requested your imaging first. ? Narrative [...] Arabella Edwards MD IMG MAMMO ORD ERABLES documented in this encounter Visit Diagnoses Diagnosis Inconclusive mammogram documented in this encounter Care Teams Performing Artist Relationship Specialty Start Date End Date Brady Muller MD [address] [address] PCP - General General Internal Medicine 12/14/21 documented as of this encounter
--- OUTSIDE RECORDS SUMMARY | 2024-03-23 16:09 | XMS_ITS | Encounter Summary ---
Author Organization [facility] [place] [address] Care Team Providers Care Solutions Specialist Name Role Phone Brady Muller MD Primary Care Provider [phone] Encounter Details Date Type Department Care Team (Late st Contact Info) Description 03/25/2022 Telephone [place] [address] Damaris Madden I RN Social History Tobacco Use Types Packs/Day [...] encounter Miscellaneous Notes * Telephone Encounter - Damaris Madden RN - 03/25/2022 2:28 PM EDT RESEARCH NURSE TELEPHONE NOTE [id number]: A Phase III Clinical Trial Evaluating DE-escalation of Breast RAdiation (BJORN) for Conservative Treatment of Stage I, Hormone Sensitive, HER2-Negative, Oncotype Recurrence Score < 18 Breast Cancer Date: 03/25/2022 Time: 2:30 PM Study Day: Pre-Screening Reason for call: Schedule update Spoke w/ Lion Reilly to review her schedule for 04/05/22 & 04/06/22. Lion Reilly states she discussed insurance coverage with [employer], no concerns. Plan: 1. Consent/screening 04/05/22. 2. CT Sim 04/06/22 if randomized to RT arm. Pt understands and agrees with plan and knows she can call the clinic with any further questions orconcerns. documented in this encounter Plan of Treatment Upcoming Encounters Date Type Department Care Team (Late st Contact Info) Description 05/08/2024 11:00 AM EDT Office Visit Hematology [place] [address] Sarah Yepez MD [facility] [place] [address] 01/16/2025 8:20 AM EDT Appointment Mammography/[place] [phone] Mary Mary APRN [facility] [place] [place] [address] 01/16/2025 9:20 AM EDT Office [place] [address] Mary Mary [facility] [place] [address] documented as of this encounter Visit Diagnoses Not on filedocumented in this encounter Care Teams Solutions Specialist Relationship Specialty Start Date End Date Brady Muller MD [address] [place] [id number] PCP - General General Internal Medicine 12/14/21 documented as of this encounter
--- OUTSIDE RECORDS SUMMARY | 2024-03-23 16:09 | XMS_ITS | Encounter Summary ---
Author Organization [facility] [place] [address] Care Team Providers Care Reeling Machine Setup Operator Name Role Phone Brady Muller MD Primary Care Provider [phone] Encounter Details Date Type Department Care Team (Late st Contact Info) Description 03/11/2022 Orders Only [place] [address] Aliya Juarez MD [facility] [place] [address] Malignant neoplasm of upper-inner quadrant of right [...] EDT Office Visit Hematology [place] [address] Sarah Yepez MD [facility] [address] [place] [address] 01/16/2025 8:20 AM EDT Appointment Mammography/[place] [address] Mary Mary [facility] [place] [address] 01/16/2025 9:20 AM EDT Office [place] [address] Mary Mary HORIZONTAL BORING MILL OPERATOR [facility] [place] [address] documented as of this encounter Visit Diagnoses Diagnosis Malignant neoplasm of upper-inner quadrant of right breast in female, estrogen receptor positive documented in this encounter Care Teams Reeling Machine Setup Operator Relationship Specialty Start Date End Date Brady Muller MD [address] [place] [phone] PCP - General General Internal Medicine 12/14/21 documented as of this encounter
--- OUTSIDE RECORDS SUMMARY | 2024-03-23 16:09 | XMS_ITS | Encounter Summary ---
Author Organization [facility] [place] [address] Care Team Providers Care Photo Colorer Name Role Phone Brady Muller MD Primary Care Provider [phone] Encounter Details Date Type Department Care Team (Latest Contact Info) Description 05/07/2022 1:38 PM EDT - 05/07/2022 11:59 PM EDT Hospital Encounter Mammography/[place] [address] Zhane Yepez MD [facility] [place] [address] Malignant neoplasm of breast in female, estrogen receptor positive, unspecified laterality, unspecified site of breast Discharge Disposition: Home Social History Tobacco Use [...] place to sleep or slept in a usp (including now)? No 03/04/2022 Sex and Gender Information Value Date Recorded Sex Assigned at Not on file Gender Identity Not on file Sexual Orientation Not on file documented as of this encounter Medications at Time of Discharge Medication Sig Dispensed Refills Start Date End Date anastrozole (Arimidex) 1 mg Tablet Take 1 tablet by mouth daily. 90 tablet 11 04/08/2022 11/30/2022 documented as of this encounter Plan of Treatment Upcoming Encounters Date Type Department Care Team (Late st Contact Info) Description 05/08/2024 11:00 AM EDT Office Visit Hematology [place] [address] Zhane Yepez MD [facility] DR HEMATOLOGY [place] [address] 01/16/2025 8:20 AM EDT Appointment Mammography/DXA at [place] [phone] Mary Mary CLASSIFYING MACHINE OPERATOR [facility] [place] [address] 01/16/2025 9:20 AM EDT Office Visit General Surgery at [place] [phone] Mary Mary APRN [facility] [place] [address] documented as of this encounter Procedures Procedure Name Priority Date/Time Associated Diagnosis Comments DXA CENTRAL SPINE, HIP, AND/OR WHOLE BODY (GENERIC) Routine 05/07/2022 2:22 PM EDT Malignant neoplasm of breast in female, estrogen receptor positive, unspecified laterality, unspecified site of breast documented in this encounter Results * DXA Central Spine, Hip, and/or Whole [...] BMD measurements and plots are available in [employer] under the imaging tab. Paper copies will be sent to providers without [employer] access. If you have received this report without the data sheet and do not have access to [employer], please contact Radiology Dye Expert at [phone] Tuesday thru Tuesday 8am-4pm. ? Bone Density Report ? Name: ?Lion Reilly Age: ? 62 Sex: ? Female Ethnicity: ? White Date of : 1960 Referring Provider: ZHANE YEPEZ Study: Bone densitometry was performed. Exam Date: May 07, 2022 Accession number: [id number] Bone Density: Region ? BMD ?T-score ??Z-score [...] who have questions please contact the health lawn care technician that requested your imaging first. ? 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 COMPARISON: None FINDINGS: Femoral neck BMD: 0.718 g/cm2 Lowest T-score at a diagnostic region of interest: T-score: -1.2, MARTHA: Lumbar spine and femoral neck, WHO diagnosis: ??osteopenia. 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 COMPARISON: None FINDINGS: Femoral neck [...] BMD measurements and plots are available in [employer] the imaging tab. Paper copies will be sent to providers without [employer] access.If you have received this report without the data sheet and do not haveaccess to [employer], please contact Radiology Dye Expert at [phone] Tuesday thruFriday 8am-4pm. Bone Density Report Name: Lion Reilly Age: 62 Sex: Female Ethnicity: White Date of : 1960 Referring Provider: ZHANE YEPEZ Study: Bone densitometry was performed. Exam Date: May 07, 2022 Accession number: [id number] Bone Density: Region BMD T-score Z-score AP [...] patients who have questions please contactthe health lawn care technician that requested your imaging first. Zhane Yepze MD IMG DEXA ORDERABLES documented in this encounter Visit Diagnoses Diagnosis Malignant neoplasm of breast in female, estrogen receptor positive, unspecified laterality, unspecified site of breast documented in this encounter Care Teams Photo Colorer Relationship Specialty Start Date End Date Brady Muller MD [address] [place] [id number] PCP - General General Internal Medicine 12/14/21 documented as of this encounter
--- OUTSIDE RECORDS SUMMARY | 2024-03-23 16:09 | XMS_ITS | Encounter Summary ---
Author Organization [facility] [place] [address] Care Team Providers Care Hand Presser Name Role Phone Brady Muller MD Primary Care Provider [phone] Reason for Visit * Reason Comments Establish Care * Consultation (Routine) - Closed Specialty Diagnoses / Procedures Referred By Contac t Referred To Contact General Surgery Diagnoses Breast cancer R IDC (dc) Procedures [facility] Brady Muller MD [address] [place] [address] Deshawn Gallego MD [facility] [place] [address] Referral ID Status Reason Start Date Expiration Date Visits Re quested Visits Authorized [id number] Closed 01/06/2022 01/06/2023 1 1 Encounter Details Date Type Department Care Team (Late st Contact Info) Description 01/06/2022 10:00 AM EDT Office Visit [place] [address] Deshawn Gallego MD [facility] [place] [address] Mira Chapman, RN Malignant neoplasm of upper-inner quadrant of right breast in female, estrogen receptor positive Social History Tobacco Use Types Packs/Day Years Used Date Smoking Tobacco: Never Smokeless Tobacco: Never Overall Financial Resource Strain (CARDIA) Answe r Date Recorded How hard is it for you to pa y for the very basics like food, housing, medical care, and heating? Somewhat hard 12/18/2021 PRAPARE - Transportation Answer Date Re corded In the past 12 months, has l ack of transportation kept you from medical appointments or from getting medications? No 11/23 In the past 12 months, has l ack of transportation kept you from meetings, work, or from getting things needed for daily living? No 12/18/2021 Sex and Gender Information Value Date Recorded Sex Assigned at Not on file Gender Identity Not on file Sexual Orientation Not on file documented as of this encounter Last Filed Vital Signs Vital Sign Reading Time Taken Comments Blood Pressure 126/62 01/06/2022 9:50 AM EDT Pulse 85 01/06/2022 9:50 AM EDT Temperature - - Respiratory Rate 18 01/06/2022 9:50 AM EDT Oxygen Saturation 100% 01/06/2022 9:50 AM EDT Inhaled Oxygen Concentration - - Weight 77.6 kg (171 lb) 01/06/2022 9:50 AM EDT Height 180.3 cm (5' 11) 01/06/2022 9:50 AM EDT Body Mass Index 23.85 01/06/2022 9:50 AM EDT documented in this encounter Progress Notes * Brady Medreos - 01/06/2022 10:00 AM EDT Surgical Oncology New Visit Note Reason for Visit: Lion Reilly is a 61 y.o. female seen at the request Brady Muller for evaluation of new right breast ER+/IL+/HER2- IDC HPI: Lion does self breast exams. Prior to breast biopsy, she denies any pain in either breast, no skinchanges, no nipple discharge, but she noted a right breast lumps after playing with her grandchildren a month ago and wondered if this was related to her increased activity. She has not noted any axillary lumps. The patient has gone through menopause at age 57. She did not take hormonal therapy. She had 3 children. She did not breast feed due to Mastitis. She does not have a history of previous breast biopsy prior to this diagnosis. Positive family history of breast cancer in her paternal grandmother who was diagnosed in her 90s. Overall she feels quite well. Weight is stable and appetite is good. Denies fatigue. No headaches. No chest pain or SOB. No abd pain or blood in the stool. No new bony pain or tenderness. Is active with house and yard work. Used to run, but has been holding off since her diagnosis. Diagnosed with Lyme disease last summer and is s/p 14 day doxycycline treatment. Active Ambulatory Problems Diagnosis Date Noted ??? Malignant neoplasm of right breast in female, estrogen receptor positive 12/18/2021 Resolved Ambulatory Problems Diagnosis Date Noted ??? No Resolved Ambulatory Problems No Additional Past Medical History Past Surgical History: Procedure Laterality Date ??? MAMMO US BIOPSY RIGHT Right 12/14/2021 Mammo Us Biopsy Right 12/14/[address] [facility] RAD MAMMOGRAPHY Current Outpatient Medications: ??? b complex vitamins Tablet, Take 1 tablet by mouth daily., Disp: , Rfl: DRUG ALLERGIES: Allergies as of 01/06/2022 ??? (No Known Allergies) SOCIAL HISTORY: Lives at home near [facility] with her , Ziggy. 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 Social History Socioeconomic History ??? Marital status: Spouse name: Not on file ??? Number of children: Not on file ??? Years of education: Not on file ??? Highest education level: Not on file Occupational History ??? Not on file Tobacco Use ??? Smoking status: Never Smoker ??? Smokeless tobacco: Never Used Substance and Sexual Activity ??? Alcohol use: Not on file ??? Drug use: Not on file ??? Sexual activity: Not on file Other Topics Concern ??? Not on file Social History Narrative ??? Not on file Social Determinants of Health Financial Resource Strain: Medium Risk ??? Difficulty of Paying Living Expenses: Somewhat hard Food Insecurity: Not on file Transportation Needs: No Transportation Needs ??? Lack of Transportation (Medical): No ??? Lack of Transportation (Non-Medical): No Physical Activity: Not on file Housing Stability: Not on file Family History Problem Relation Age of Onset ??? Breast Cancer Paternal Grandmother 90 's. B/l mastectomy (?b/l BRCA) ??? Ovarian Cancer Neg Hx REVIEW OF SYSTEMS: A 12 point complete review of systems was obtained from the patient and confirmed by me. It was negative except for what was stated in the HPI. She otherwise denies high blood pressure, heart disease, lung disease, diabetes, and infectious diseases. PHYSICAL EXAMINATION: Constitutional: This is a 61 y.o. female in no apparent distress BP 126/62 (BP Location (NBP): Right arm, Patient Position: Sitting, BP Cuff Sizes: Adult (25-34 cm)) Pulse 85 Resp 18 Ht 180.3 cm (5' 11) Wt 77.6 kg (171 lb) SpO2 100% BMI 23.85 kg/m?? Body mass index is 23.85 kg/m??. Eyes: anicteric, extra ocular movements are intact Neuro: No focal deficits. Hearing and speech intact Psych: the patient is alert and oriented. Normal affect. Breast Exam: breasts appear normal, no suspicious masses, no skin or nipple changes or axillary nodes. Nodule that patient states she was able to palpate was not detected. Heart: Regular rate and rhythm, S1 S2. No peripheral edema Lungs: Clear bilaterally with good air intake Nodes: No palpable lymph nodes in the groin or neck. Abdomen: Soft, non-tender, non-distended. There are normal active bowel sounds, no hepatosplenomegaly. Musculoskeletal: The patient has normal gait, range of motion, and muscle strength Skin: warm, dry, good turgor, non-icteric. DATA REVIEWED: 1) Imaging reviewed by me with the radiologist: Screening mammo (12/07): Suspicious 0.8 cm spiculated mass in the right upper posterior breast. Advise exaggerated craniocaudal imaging medially to identify this lesion mammographically prior to core biopsy. Dx Mammo: Suspicious 0.8 cm mass right breast 1:00 radian 13 cm from the nipple for which ultrasound-guided core biopsy is recommended. This is performed and dictated separately on the day of the patient's visit. US: The breast is heterogeneously dense, which may obscure small masses. There is a persistent 0.8 cm mass now visualized in both views at the far superior posterior slightly inner aspect of the right breast. This measures 0.8 cm and is 15 cm from the nipple. ?? Directed ultrasound of the right breast depicts a 0.8 cm irregular mass with mixed posterior features at the right breast 1:00 radian 13 cm from the nipple sonographically. The patient also notes that this is palpable. MRI: Known malignancy right breast 1:00 radian 16 cm from the nipple measuring 0.9 cm by MRI 2) Pathology Invasive ductal carcinoma ? High grade, modified SBR score = 8 Microcalcifications: ??N/A ER immunoreactivity: Positive (>90% cancer cells with immunostaining) Stain intensity: Strong IL immunoreactivity: Positive (>90% cancer cells with immunostaining) Stain intensity: Strong NEGATIVE FOR HER2/RIMMA AMPLIFICATION 4) Labs Per EDH: Last wbc, hgb, hct plt Recent Labs 01/04/22 1230 WBC 5.8 HGB 14.6 HCT 43.8 Last 3 Lytes Recent Labs 01/04/22 1230 NA 141 K 3.9 CL 104 CO2 27 BUN 19* CREATININE 0.90 Last 3 LFTs Recent Labs 01/04/22 1230 AST 23 ALT 16 ALKPHOS 71 BILITOT 0.5 Impression: Lion Reilly is a 61 y.o. female with ER+/IL+/HER2- IDC in her RIGHT breast at 1:00 16cm from her nipple. We discussed the treatment options of her cancer which include partial mastectomy and radiation versus mastectomy and radiation. We discussed the differences and local recurrence as well as the postoperative recovery. The patient is interested in partial mastectomy with radiation. We also discussed staging with sentinel lymph node biopsy. The patient and her , Ziggy, had multiple questionswhich were answered to their satisfaction. The patient would like to proceed with plan as follows: Plan: 1) Right breast partial mastectomy with needle loc, lymphatic mapping, SLNB. I explained the implications, indications and alternatives to the proposed treatment plan as well as the risks, including infection, bleeding/hematoma, need for additional surgery, lymphedema, DVT/PE. Consent form has beensigned. Same day surgery, out patient. 2) Imaging ordered, SLN mapping, needle localization YESI [facility] Surgical Oncology documented in this encounter H&P Notes * Deshawn Gallego MD - 01/06/2022 10:00 AM EDT Surgical Oncology New Visit Note Reason for Visit: Lion Reilly is a 61 y.o. female seen at the request Brady Muller for evaluation of RIGHT breast IDC (ER+/IL+/HER2-). 1cm at 1:00 and 16cm FN HPI: Lion does not self breast exams regularly. Prior to breast biopsy, she denies any pain in either breast, no skin changes, no breast or axillary lumps, no nipple discharge. The patient has gone through menopause. She did not take hormonal therapy. Overall she feels quite well. Weight is stable and appetite is good. Denies fatigue. No headaches. No chest pain or SOB. No abd pain or blood in the stool. No new bony pain or tenderness. Is active with house and yard work. No regular scheduled exercise. Active Ambulatory Problems Diagnosis Date Noted ??? Malignant neoplasm of right breast in female, estrogen receptor positive 12/18/2021 Resolved Ambulatory Problems Diagnosis Date Noted ??? No Resolved Ambulatory Problems No Additional Past Medical History Past Surgical History: Procedure Laterality Date ??? MAMMO US BIOPSY RIGHT Right 12/14/2021 Mammo Us Biopsy Right 12/14/[address] [facility] RAD MAMMOGRAPHY Current Outpatient Medications: ??? b complex vitamins Tablet, Take 1 tablet by mouth daily., Disp: , Rfl: DRUG ALLERGIES: Allergies as of 01/06/2022 ??? (No Known Allergies) SOCIAL HISTORY: Social History Socioeconomic History ??? Marital status: Spouse name: Not on file ??? Number of children: Not on file ??? Years of education: Not on file ??? Highest education level: Not on file Occupational History ??? Not on file Tobacco Use ??? Smoking status: Never Smoker ??? Smokeless tobacco: Never Used Substance and Sexual Activity ??? Alcohol use: Not on file ??? Drug use: Not on file ??? Sexual activity: Not on file Other Topics Concern ??? Not on file Social History Narrative ??? Not on file Social Determinants of Health Financial Resource Strain: Medium Risk ??? Difficulty of Paying Living Expenses: Somewhat hard Food Insecurity: Not on file Transportation Needs: No Transportation Needs ??? Lack of Transportation (Medical): No ??? Lack of Transportation (Non-Medical): No Physical Activity: Not on file Housing Stability: Not on file Family History Problem Relation Age of Onset ??? Breast Cancer Paternal Grandmother 90 's. B/l mastectomy (?b/l BRCA) ??? Ovarian Cancer Neg Hx REVIEW OF SYSTEMS: A 12 point complete review of systems was obtained from the patient and confirmed by me. It was negative except for what was stated in the HPI. She otherwise denies high blood pressure, heart disease, lung disease, diabetes, and infectious diseases. PHYSICAL EXAMINATION: Constitutional: This is a 61 y.o. female in no apparent distress BP 126/62 (BP Location (NBP): Right arm, Patient Position: Sitting, BP Cuff Sizes: Adult (25-34 cm)) Pulse 85 Resp 18 Ht 180.3 cm (5' 11) Wt 77.6 kg (171 lb) SpO2 100% BMI 23.85 kg/m?? Body mass index is 23.85 kg/m??. Eyes: anicteric, extra ocular movements are intact Neuro: No focal deficits. Hearing and speech intact Psych: the patient is alert and oriented. Normal affect. Breast Exam: breasts appear normal, no suspicious masses, no skin or nipple changes or axillary nodes. Heart: Regular rate and rhythm, S1 S2. No peripheral edema Lungs: Clear bilaterally with good air intake Nodes: No palpable lymph nodes in the groin or neck. Abdomen: Soft, non-tender, non-distended. There are normal active bowel sounds, no hepatosplenomegaly. Musculoskeletal: The patient has normal gait, range of motion, and muscle strength Skin: warm, dry, good turgor, non-icteric. DATA REVIEWED: 1) Imaging reviewed by me with the radiologist: Dx Mammo: IMPRESSION Suspicious 0.8 cm mass right breast 1:00 radian 13 cm from the nipple for which ultrasound-guided core biopsy is recommended. This is performed and dictated separately on the day of the patient's visit. MRI: RIGHT BREAST LESION 1: 0.9 cm Mass Upper inner quadrant 1 O'Clock 16 cm from the nipple by MRI ?? Mass Shape: Irregular Margins: Not circumscribed - Irregular Enhancement: Homogenous Delayed phase: Washout ? Lymph Node Basins/Other: There is no evidence of internal mammary or axillary adenopathy.. No significant abnormalities are seen in the chest wall or skin.. ?? IMPRESSION Known malignancy right breast 1:00 radian 16 cm from the nipple measuring 0.9 cm by MRI ?? RECOMMENDATION:Definitive surgical management. ? LEFT BREAST 1. Normal RIGHT BREAST 6. Known malignancy ?? 2) Pathology DIAGNOSIS Needle biopsies: ?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, modified SBR score = 8 Microcalcifications: ??N/A ER + IL + HER2 - Impression: Lion Reilly is a 61 y.o. female with RIGHT breast IDC, 0.9cm tumor at 1:00 16cm FN (ER+/IL+/HER2-) We discussed the treatment options of her cancer which include partial mastectomy with radiation versus mastectomy. We discussed the differences and local recurrence as well as the postoperative recovery. The patient is interested in partial mastectomy. We also discussed staging with sentinel lymph node biopsy. The patient had multiple questions which were answered to their satisfaction. The patient would like to proceed with plan as follows: Plan: 1) RIGHT breast partial mastectomy with needle loc, lymphatic mapping, SLNB. I explained the implications, indications and alternatives to the proposed treatment plan as well as the risks, including infection, bleeding/hematoma, need for additional surgery, lymphedema, DVT/PE. Consent form has beensigned. Same day surgery, out patient. 2) Imaging ordered 3) Medical clearances - nil 4) Consultations (e.g. med/rad onc) 5) Other fup plan details, such as present at DMT, discuss with referring MD, etc Deshawn Gallego MD, MPH Surgical Oncology documented in this encounter Plan of Treatment Upcoming Encounters Date Type Department Care Team (Late st Contact Info) Description 05/08/2024 11:00 AM EDT Office Visit Hematology [place] [address] Sarah Yepez MD [facility] DR HEMATOLOGY [place] [address] 01/16/2025 8:20 AM EDT Appointment Mammography/[place] [address] Mary Mary APRN [facility] [place] [address] 01/16/2025 9:20 AM EDT Office Visit [place] [address] Mary Mary APRN [facility] [place] [address] documented as of this encounter Visit Diagnoses Diagnosis Malignant neoplasm of upper-inner quadrant of right breast in female, estrogen receptor positive documented in this encounter Care Teams Hand Presser Relationship Specialty Start Date End Date Brady Muller MD [address] [place] [id number] PCP - General General Internal Medicine 12/14/21 documented as of this encounter
--- OUTSIDE RECORDS SUMMARY | 2024-03-23 16:09 | XMS_ITS | Encounter Summary ---
Author Organization [place] [address] Care Team Providers Care Spool Cleaner Hand Name Role Phone Brady Muller MD Primary Care Provider [phone] Encounter Details Date Type Department Care Team (Late st Contact Info) Description 04/06/2022 Telephone Radiation Oncology at [address] [phone] Christina Mcgowan, RN Social History Tobacco Use Types Packs/Day [...] place to sleep or slept in a skilled nursing (including now)? No 03/04/2022 Sex and Gender Information Value Date Recorded Sex Assigned at Not on file Gender Identity Not on file Sexual Orientation Not on file documented as of this encounter Miscellaneous Notes * Telephone Encounter - Christina Mcgowan RN - 04/06/2022 10:20 AM EDT Message left on mobile and home numbers that I was returning call to let her know that we did get her message that she would like to cancel her appointments today as she may not go through with radiation regardless if she is on the study. I let her know that we would cancel her appointments as she wishes but also wanted to discuss abouther plans moving forward. I left our clinic contact information and request for call back. * Telephone Encounter - Christina Mcgowan RN - 04/06/2022 10:13 AM EDT ----- Message from Aleksandra Boyd RN sent at 04/06/2022 8:49 AM EDT ----- Regarding: FW: pt wants to cancel ----- Message ----- From: Florencio Lloyd Sent: 04/06/2022 8:34 AM EDT To: [facility] Hem Onc Nurse Subject: pt wants to cancel Pt just called and stated that she wanted to cancel all of her apt's today. She said that she was waiting to hear about starting her hormone therapy and that she may not go through with radiation regardless if she is on the study or not. I left the apt's on the books for now as I assume someone will be calling her to talk to her about this to explain further. If they do indeed need to be canceled please let me know and I will cancel them out. Yovanny documented in this encounter Plan of Treatment Upcoming Encounters Date Type Department Care Team (Late st Contact Info) Description 05/08/2024 11:00 AM EDT Office Visit Hematology and Oncology at [place] [phone] Sarah Yepez MD [facility] DR HEMATOLOGY [place] [address] 01/16/2025 8:20 AM EDT Appointment Mammography/DXA at [place] [phone] Mary Mary, [facility] [place] [address] 01/16/2025 9:20 AM EDT Office Visit General Surgery at [place] [phone] Mary Mary, [facility] [address] documented as of this encounter Visit Diagnoses Not on filedocumented in this encounter Care Teams Spool Cleaner Hand Relationship Specialty Start Date End Date Brady Muller MD [address] [address] PCP - General General Internal Medicine 12/14/21 documented as of this encounter
--- OUTSIDE RECORDS SUMMARY | 2024-03-23 16:09 | XMS_ITS | Encounter Summary ---
[place] [address] Care Team Providers Care Restaurant Host/Hostess Name Role Phone Brady Muller MD Primary Care Provider [phone] Reason for Referral * Consultation (Routine) - Closed Specialty Diagnoses / Procedures Referred By Patience menon Referred To Contact Hematology and Oncology Diagnoses Malignant neoplasm of upper-outer quadrant of right breast in female, estrogen receptor positive Sarah Yepez MD [facility] [address] [place] [address] [facility] Hem Onc [address] [place] [address] Referral ID Status Reason Start Date Expiration Date V isits Requested Visits Authorized [id number] Closed Consult, Test & Treat 03/04/2022 03/04/2023 1 1 Reason for Visit * Reason Comments Advice Only * Consultation (Routine) - Closed Specialty Diagnoses / Procedures Referred By Patience menon Referred To Contact Hematology and Oncology Diagnoses Breast cancer S/P R PART MAST SURG 02/11 (dc) Procedures NEW PATIENT Deshawn Gallego MD [facility] [place] [address] Sarah Yepez MD [facility] [address] [place] [address] Referral ID Status Reason Start Date Expiration Date Visits Re quested Visits Authorized [id number] Closed 03/04/2022 03/04/2023 1 1 Encounter Details Date Type Department Care Team (Zan st Contact Info) Description 03/04/2022 2:00 PM EDT Office Visit Hematology [place] [address] Sarah Yepez MD [facility] [address] HEMATOLOGY [place] [address] Mira Chapman, RN Malignant neoplasm of upper-outer quadrant of [...] place to sleep or slept in a alf (including now)? No 03/04/2022 Sex and Gender Information Value Date Recorded Sex Assigned at Not on file Gender Identity Not on file Sexual Orientation Not on file documented as of this encounter Last Filed Vital Signs Vital Sign Reading Time Taken Comments Blood Pressure 118/74 03/04/2022 1:47 PM EDT Pulse 79 03/04/2022 1:47 PM EDT Temperature 36.9 ??C (98.4 ??F) 03/04/2022 1:47 PM ED T Respiratory Rate 16 03/04/2022 1:47 PM EDT Oxygen Saturation 100% 03/04/2022 1:47 PM EDT Inhaled Oxygen Concentration - - Weight 70.5 kg (155 lb 6.4 oz) 03/04/2022 1:47 P M EDT Height 177.3 cm (5' 9.8) 03/04/2022 1:47 PM EDT Body Mass Index 22.42 03/04/2022 1:47 PM EDT documented in this encounter Progress Notes * Sarah Yepez MD - 03/04/2022 2:00 PM EDT Lion Reilly is a 61 y.o. female with a stage 1 right luminal breast cancer here for an opinion regarding the next step in her care. She is referred by Dr Gallego She is here with her Records were reviewed which included imaging ( mammogram, US, MRI, PET/CT, Ultrasounds that were non breast, CTs, ), surgical reports, pathology reports and physician notes. In total approximately 40pages of prior records were reviewed prior to today's appointment. Breast Cancer History as follows: 12/14/2021 MMG and US: Right breast 0.8 cm mass right breast 1:00 12/14/2021 right breast biopsy Path PD IDC ER>90 NH >90 HER 2 ary neg by FISH 01/04/2022: katie breast MRI: right breast 0l9 cm. No nodes 02/11/2022 RLE and SLNB (0) -[id number] Path: IDC T= 0.8 cm No DCIS No LVI Neg margin No post op complications Past Medical History: Diagnosis Date ??? Malignant neoplasm of right breast in female, estrogen receptor positive 12/18/2021 12/14/21 bx [facility]: ER+/NH+/HER2 pending right breast IDC, high grade Past Surgical History: Procedure Laterality Date ??? MAMMO US BIOPSY RIGHT Right 12/14/2021 Mammo Us Biopsy Right 12/14/2021 Delmi Gardner MD [facility] RAD MAMMOGRAPHY ??? MAMMO US NEEDLE LOCALIZATION RIGHT Right 02/11/2022 Mammo US Needle Localization Right 02/11/2022 Gali Bosch MD [facility] RAD MAMMOGRAPHY ??? PRO BX/REMV, LYMPH NODE, DEEP AXILL Right 02/11/2022 BIOPSY OR EXCISION OF LYMPH NODE(S), OPEN, DEEP AXILLARY NODE(S) (WRVU 6.43) performed by Deshawn Gallego MD at [facility] MAIN OR ??? PRO INTRAOP SENTINEL LYMPH ID W/DYE INJECTION Right 02/11/2022 INTRAOPERATIVE ID (MAPPING) SENTINEL LYMPH NODE,INCLUDES INJECTION (WRVU 2.5) performed by Deshawn Gallego MD at [facility] MAIN OR ??? PRO MASTECTOMY PARTIAL Right 02/11/2022 MASTECTOMY PARTIAL (WRVU 10.13) performed by Deshawn Gallego MD at [facility] MAIN OR Csn x 3 Meds: no [...] systems reviewed and are negative. Physical Exam: Constitutional: She is oriented to person, place, and time. She appears well- developed and well-nourished. No distress. HENT: Head: Normocephalic. Eyes: Conjunctivae are normal. Pupils are equal, round, and reactive to light. Neck: Normal range of motion. Cardiovascular: Normal rate, regular rhythm and normal heart sounds. Pulmonary/Chest: Effort normal and breath sounds normal. Breasts: Right breast: s/p RLE and SLNB. Healing well No masses or nipple discharge in right or left breast No evidence of CW recurrence or infection. [...] is normal A/P Lion Reilly is a 61 y.o. female With a stage 1 luminal breast cancer on the right who is s/p RLE and SLNB The concept of adjuvant therapy as relates to her risk of recurrence and overall prognosis were discussed. WE discussed Both systemic and radiation options I recommend the followin. Oncotype sent 2. Candidate for BR007- will hold on RT sim scheduled for next week 3. Genetics referratl to [facility] 4. Ki 67 ordered to assess if luminal A breast cancer. 5. RTC 3 weeks Total time spent: 80 minutes with > 50% spend in discussion of above documented in this encounter Plan of Treatment Upcoming Encounters Date Type Department Care Team (Late st Contact Info) Description 05/08/2024 11:00 AM EDT Office Visit Hematology [place] [phone] Sarah Yepez MD [facility] [address] HEMATOLOGY [place] [address] 01/16/2025 8:20 AM EDT Appointment Mammography/[place] [phone] Mary Mary APRN [facility] [address] GENERAL SURGERY [place], [place] [phone] 01/16/2025 9:20 AM EDT Office [place] [address] Mary Mary APRN [facility] [place] [address] Scheduled Orders Name Type Priority Associated Diagnoses Orde r Schedule Specimen to Pathology Additional Testing Pathology/Cytol ogy Routine Malignant neoplasm of upper-outer quadrant of right breast in female, estrogen receptor positive Ordered: 03/04/2022 Scheduled Referrals Name Type Priority Associated Diagnoses Orde r Schedule Referral to Familial Cancer Outpatient Referral Routine Malignant neoplasm of upper-outer quadrant of right breast in female, estrogen receptor positive Ordered: 03/04/2022 documented as of this encounter Visit Diagnoses Diagnosis Malignant neoplasm of upper-outer quadrant of right breast in female, estrogen receptor positive documented in this encounter Care Teams Restaurant Host/Hostess Relationship Specialty Start Date End Date Brady Muller MD [address] [place] [address] PCP - General General Internal Medicine 12/14/21 documented as of this encounter
--- OUTSIDE RECORDS SUMMARY | 2024-03-23 16:09 | XMS_ITS | Encounter Summary ---
Author Organization [facility] [place] [address] Care Team Providers Care Hvac Service Manager Name Role Phone Brady Muller MD Primary Care Provider [phone] Encounter Details Date Type Department Care Team (Late st Contact Info) Description 03/18/2022 Telephone [place] [address] Damaris Madden I RN Social [...] Notes * Telephone Encounter - Damaris Madden I RN - 03/18/2022 4:35 PM EDT RESEARCH NURSE TELEPHONE NOTE [id number]: A Phase III Clinical Trial Evaluating DE-escalation of Breast RAdiation (BJORN) for Conservative Treatment of Stage I, Hormone Sensitive, HER2-Negative, Oncotype Recurrence Score < 18 Breast Cancer Date: 03/18/2022 Time: 4:35 PM Study Day: Pre-Screening Reason for call: Schedule update Spoke w/ Lion Reilly to review her schedule. She was scheduled on 03/22/22 for a visit with Susy Taylor RN. This visit will be changed to 04/05/22, followed by a lab appointment. If she is randomized to the RT arm + endocrine therapy, she will proceed with CT SIM on 04/06/22. Lion Reilly verbalizes understanding and denies additional questions at this time. Plan: 1. Tire Finisher messaged on 03/18/22 to change 03/22/22 appointment to 04/05/[address] SIM on 04/06/22 if randomized to RT arm + endocrine therapy. Pt understands and agrees with plan and knows she can call the clinic with any further questions orconcerns. documented in this encounter Plan of Treatment Upcoming Encounters Date Type Department Care Team (Late st Contact Info) Description 05/08/2024 11:00 AM EDT Office Visit Hematology [place] [address] Sarah Yepez MD [facility] DR HEMATOLOGY [place] [address] 01/16/2025 8:20 AM EDT Appointment Mammography/[place] [phone] Mary Mary [facility] [place] [address] 01/16/2025 9:20 AM EDT Office Visit [place] [phone] Mary Mary [facility] [place] [address] documented as of this encounter Visit Diagnoses Not on filedocumented in this encounter Care Teams Hvac Service Manager Relationship Specialty Start Date End Date Brady Muller MD [address] [address] PCP - General General Internal Medicine 12/14/21 documented as of this encounter
--- OUTSIDE RECORDS SUMMARY | 2024-03-23 16:09 | XMS_ITS | Encounter Summary ---
Author Organization [facility] [place] [address] Care Team Providers Care Assistant Operations Manager Name Role Phone Brady Muller MD Primary Care Provider [phone] Encounter Details Date Type Department Care Team (Late st Contact Info) Description 03/10/2022 2:45 PM EDT Office [place] [phone] Deshawn Gallego MD [facility] [place] [address] Malignant neoplasm of right breast in female, [...] as of this encounter Progress Notes * Deshawn Gallego MD - 03/10/2022 2:45 PM EDT Tejal returns s/p RIGHT partial mastectomy and SLNB. She tolerated procedure well. Pain controlled. Incision is healing well. Surgical Pathology DIAGNOSIS A - Right breast, partial mastectomy: - Invasive ductal carcinoma (see Synoptic Report) - Biopsy site changes B - Right axillary fat, excision: - Benign breast tissue C - Right axillary sentinel lymph node #1, [id number], excision: - One lymph node, negative for metastatic carcinoma (0/1) D - Right axillary sentinel lymph node #2, [id number], excision: - Three lymph nodes, negative for metastatic carcinoma (0/3) Electronically signed by: ?Meggan KOHLER, Mohan Roque Verified: ??02/16/2022 12:00 ??Pathologist Performed at: ??-[facility] Dept. of Pathology, [place], [place] SYNOPTIC Specimen ?Procedure: ??Excision (less than total mastectomy) ?Specimen Laterality: ??Right Tumor ?Histologic Type: ??Invasive ductal carcinoma ?Histologic Grade (Lynette Histologic Score): ? Glandular (Acinar) / Tubular Differentiation: ??Score 3 ? Nuclear Pleomorphism: ??Score 2 ? Mitotic Rate: ??Score 2 ? Overall Grade: ??Grade 2 (scores of 6 or 7) ?Tumor Size: ??8 Millimeters (mm) ?Ductal Carcinoma In Situ (DCIS): ??Not identified ?Lymphovascular Invasion: ??Not identified ?Treatment Effect in the Breast: ??No known presurgical therapy Margins ?Margin Status for Invasive Carcinoma: ??All margins negative for invasive ? carcinoma ? Distance from Invasive Carcinoma to Closest Margin: ??7 mm ? Closest Margin(s) to Invasive Carcinoma: ??Inferior; ??Medial ?Margin Status for DCIS: ??Not applicable (no DCIS in specimen) Regional Lymph Nodes ?Regional Lymph Node Status: ??All regional lymph nodes negative for tumor ?Total Number of Lymph Nodes Examined (sentinel and non-sentinel): ??4 ?Number of [place] Nodes Examined: ??4 Pathologic Stage Classification (pTNM, AJCC 8th Edition) ?pT Category: ??pT1b ?Regional Lymph Nodes Modifier: ??(sn): [place] node(s) evaluated. ?pN Category: ??pN0 ER, NE, and HER2 studies (performed on prior biopsy, [id number]): ER: Positive (>90%, strong) NE: Positive (>90%, strong) HER2 FISH: Negative ' A/P: 61y F with RIGHT breast IDC, ER+/NE+/HER2- s/p margin negative PM and node negative SLNB. - Referral radiation oncology for adjuvant XRT - Referral oncology for consideration of endocrine therapy - RTC in 6month with new baseline RIGHT mammogram Deshawn Gallego MD, MPH Surgical Oncology documented in this encounter Plan of Treatment Upcoming Encounters Date Type Department Care Team (Late st Contact Info) Description 05/08/2024 11:00 AM EDT Office Visit Hematology [place] [address] Sarah Yepez MD [facility] DR [place] [address] 01/16/2025 8:20 AM EDT Appointment Mammography/[place] [address] Mary Mary [facility] [place] [address] 01/16/2025 9:20 AM EDT Office Visit General Surgery at [place] [address] [address] [facility] [place] [address] documented as of this encounter Visit Diagnoses Diagnosis Malignant neoplasm of right breast in female, estrogen receptor positive, unspecified site of breast documented in this encounter Care Teams Assistant Operations Manager Relationship Specialty Start Date End Date Brady Muller MD [address] [place] [address] PCP - General General Internal Medicine 12/14/21 documented as of this encounter
--- OUTSIDE RECORDS SUMMARY | 2024-03-23 16:09 | XMS_ITS | Encounter Summary ---
[place] [address] Care Team Providers Care Hard Rock Drill Operator Name Role Phone Brady Muller MD Primary Care Provider [phone] Encounter Details Date Type Department Care Team (Late st Contact Info) Description 12/14/2021 Notes Only [place] [address] Richardson Olmos MD [facility] [place] [address] Social History Tobacco Use Types Packs/Day Years Used Date Smoking Tobacco: Never Assessed Sex and Gender Information Value Date Recorded Sex Assigned at Not on file Gender Identity Not on file Sexual Orientation Not on file documented as of this encounter Progress Notes * Richardson Olmos MD - 12/14/2021 8:04 AM EDT Pre-procedure note for needle breast biopsies performed in radiology. Procedure date: Today Procedure type: right breast ultrasound guided biopsy Allergies: Patient has no allergy information on record. Medications: No current outpatient medications on file. Anticoagulation status: none stopped on: N/A Imaging reviewed and procedural plan approved by Dr. RICHARDSON OLMOS MD documented in this encounter Plan of Treatment Upcoming Encounters Date Type Department Care Team (Late st Contact Info) Description 05/08/2024 11:00 AM EDT Office Visit Hematology [place] [address] Sarah Yepez MD [facility] [place] [address] 01/16/2025 8:20 AM EDT Appointment Mammography/DXA at [place] [phone] Mary Mary [facility] [address] 01/16/2025 9:20 AM EDT Office Visit [place] [phone] Mary Mary CHEF'S ASSISTANT [facility] [place] [address] documented as of this encounter Visit Diagnoses Not on filedocumented in this encounter Care Teams Hard Rock Drill Operator Relationship Specialty Start Date End Date Brady Muller MD [address] [place] [address] PCP - General General Internal Medicine 12/14/21 documented as of this encounter
--- OUTSIDE RECORDS SUMMARY | 2024-03-23 16:09 | XMS_ITS | Encounter Summary ---
[place] [address] Care Team Providers Care Clamp Jig Assembler Name Role Phone Brady Muller MD Primary Care Provider [phone] Reason for Visit * Auth/Cert Specialty Diagnoses / Procedures Referred By Patience menon Referred To Contact Diagnoses Breast cancer right breast cancer Procedures PRO MASTECTOMY PARTIAL PRO BX/REMV, LYMPH NODE, DEEP AXILL PRO INTRAOP SENTINEL LYMPH ID W/DYE INJECTION MASTECTOMY PARTIAL (WRVU 10.13) BIOPSY OR EXCISION OF LYMPH NODE(S), OPEN, DEEP AXILLARY NODE(S) (WRVU 6.43) INTRAOPERATIVE ID (MAPPING) SENTINEL LYMPH NODE,INCLUDES INJECTION (WRVU 2.5) MODIFIER WITH NEEDLE LOC., LESION #1 MODIFIER SENTINEL NODE EXCISION Deshawn Gallego MD [facility] [place] [address] [facility] Referral ID Status Reason Start Date Expiration Date Visits Re quested Visits Authorized [id number] 1 1 Encounter Details Date Type Department Care Team (Late st Contact Info) Description 02/11/2022 1:15 PM EDT - 02/11/2022 3:30 PM EDT Surgery [place] [phone] Deshawn Gallego MD [facility] [address] [place], [place] [id number] MASTECTOMY PARTIAL (WRVU 10.13) Social History Tobacco Use Types Packs/Day Years [...] Sign Reading Time Taken Comments Blood Pressure 133/90 02/11/2022 12:17 PM EDT Pulse 82 02/11/2022 12:17 PM EDT Temperature 36.4 ??C (97.5 ??F) 02/11/2022 12:17 PM E DT Respiratory Rate 16 02/11/2022 12:17 PM EDT Oxygen Saturation 100% 02/11/2022 12:17 PM EDT Inhaled Oxygen Concentration - - Weight 71.2 kg (157 lb) 02/11/2022 12:17 PM EDT Height 180.3 cm (5' 11) 02/11/2022 12:17 PM EDT Body Mass Index 21.9 02/11/2022 12:17 PM EDT documented in this encounter Discharge Instructions * Patient Instructions* Kelsie Gonzalez MD - 02/11/2022 1:33 PM EDT Instructions Following Soft-Tissue Surgery What to Expect Following Surgery: Swelling and/or bruising under and around the incision is normal. It is usually greatest on the second or third day following surgery. You may also feel the sensation of swelling or firmness that canlast for a month or more Your scar will be most visible for 1-2 months following your operation and will gradually fade. As it heals, a scar looks more pink or red than the skin around it. You may feel a ???healing ridge?? directly under the incision. This is normal and will go away when healing is complete. The skin just above and below your incision will feel numb. This will improve over several months but some patients may have long-term decrease in sensation over these areas. If blue dye was used as a part of your surgery, you may experience green colored urine for 2-3 daysafter surgery. This is normal and expected Incision Care: Keep dressing on your incision for the next 2 days, then you may remove dressing and leave incisionopen to air. Remove dressing and replace with dry gauze if it becomes saturated or wet in the next 2 days, replace as needed. If there are pieces of tape directly on the skin (steri-strips), please leave them on until they fall off on their own. You may trim them back as they peel up, or just remove them after 2 weeks. Or you may have surgical glue on your incision which has a purplish hue. This will wear away on it's ownover the next couple weeks. Once dressing is removed in 2 days you may shower and get incision wet. Pat dry immediately following. Do not scrub area vigorously for the next 2 weeks. Do not soak incision under water (i.e. bath or swimming) for the next 3 weeks to prevent a wound infection. Do not use any ointments/salves/Vitamin E on the incision until after your first follow-up appointment as these may impair early wound healing Incisions are sensitive to sunlight. For 1 year after surgery you should use sunscreen when outdoors for long periods of time to prevent permanent darkening of the scar. Diet & Activity: No restrictions in your diet are necessary. Activity as tolerated by your comfort level. NO DRIVING for at least 8 hours following any dose of an opioid pain medication if one was prescribed for you. Pain Management: Take acetaminophen (Tylenol) 1000mg every 8 hours for the first 3-5 days following surgery to help minimize pain. You may also use NSAIDS like ibuprofen (motrin, advil), naproxen (Naprosyn, Aleve) atdose indicated on the bottle instructions. You may apply ice or cold packs to the incision for 15-20 minutes several times a day for the first2-3 days following surgery to help with discomfort Follow-up Appointment: Will be scheduled with Dr. Gallego if not indicated below. Please call [phone] to confirm date and time of your appointment if you do not hear from us inthe week or if you need to make changes. Future Appointments Date Time Provider Department Center 03/01/2022 9:[address] [facility] Rad [facility] 03/01/2022 10:00 AM Aliya Juarez MD [facility] [[email or web address] Rad Off [facility] 03/04/2022 2:00 PM Sarah Yepez MD [facility] HEM ONC [facility] 03/10/2022 2:45 PM Deshawn Gallego MD [facility] SURG [facility] Call Doctor for: Worsening redness or drainage from your incision lasting longer than 5 days following surgery Any foul-smelling drainage from the incision Fevers greater than 101 degrees F Persistent nausea or vomiting (this may be related to opioid pain medications) Phone number for questions: [phone] before 5 PM weekdays [phone] after 5 PM and on weekends/holidays documented in this encounter Progress Notes * Sayra Red RN - 02/11/2022 5:59 PM EDT Patient alert and oriented, vital signs stable. Reviewed discharge instructions; patient and Ziggy verbalized understanding. Copy of instruction sheet with contact numbers for questions/concerns. Pain assessment documented. Patient escorted out of department via wheelchair with this RN. documented in this encounter H&P Notes * Kelsie Gonzalez MD - 02/11/2022 1:31 PM EDT [facility] General Surgery Pre-Operative History and Physical Lion Reilly is a 61 y.o. 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 The patient reports that she has been well since her last clinic visit without significant changes to medical status. She denies new diagnoses or medication changes. She denies recent illness including fever/chills, cough/flu-like symptoms, or recent infection. She denies chest pain or shortness ofbreath. Signficant PM/SH Past Medical History: Diagnosis Date ??? Malignant neoplasm of right breast in female, estrogen receptor positive 12/18/2021 12/14/21 bx [facility]: ER+/NC+/HER2 pending right breast IDC, high grade Past Surgical History: Procedure Laterality Date ??? MAMMO US BIOPSY RIGHT Right 12/14/2021 Mammo Us Biopsy Right 12/14/2021 Delmi Gardner MD [facility] RAD MAMMOGRAPHY ??? MAMMO US NEEDLE LOCALIZATION RIGHT Right 02/11/2022 Mammo US Needle Localization Right 02/11/2022 Gali Bosch MD [facility] RAD MAMMOGRAPHY Current Facility-Administered Medications: ??? sodium chloride 0.9 % (flush) (BD PosiFlush Normal Saline 0.9) flush 5-20 mL, 5-20 mL, Intravenous, Q1 Min PRN, Katia Mcguire MD ??? lidocaine (Xylocaine) 1% (10 mg/mL) injection 3 mg, 0.3 mL, Subcutaneous, Once PRN, Katia Mcguire MD ??? lactated ringers infusion, 1,000 mL, Intravenous, Continuous, Katia Mcguire MD ??? ceFAZolin (Ancef) 2 g vial attach to sodium chloride 0.9% 100 mL Mini-Bag Plus, 2 g, Intravenous, Q3H, Deshawn Gallego MD Patient Vitals for the past 24 hrs: Temp Pulse Resp BP SpO2 O2 Device 02/11/22 1217 36.4 ??C (97.5 ??F) 82 16 133/90 100 % RA Physical Exam Gen: no distress, lying comfortably in bed Neuro: alert and oriented, no focal deficits CV: regular rate and rhythm Pulm: clear bilaterally, breathing comfortably on room air GI: soft, nondistended, nontender Assessment and Plan: Right breast IDC. Proceed with scheduled procedure: right breast partial mastectomy with needle localization and SLNB - She has been appropriately consented and is ready to proceed. - Prophylactic antibiotics: 2g ceftriaxone ordered carbon cutter to OR Kelsie Gonzalez MD 02/11/2022 documented in this encounter Miscellaneous Notes * Op Note - Deshawn Gallego MD - 02/11/2022 2:35 PM EDT [facility] Operative Note Patient Name: Lion Reilly : [id number] MR#: [id number] Case Date: 02/11/2022 Surgeon: Surgeon(s) and Role: * Deshawn Gallego MD - Primary * Kelsie Gonzalez MD - Resident Preoperative diagnosis: right breast cancer Postoperative diagnosis: right breast cancer Procedure(s) (LRB): MASTECTOMY PARTIAL (WRVU 10.13) (Right) BIOPSY OR EXCISION OF LYMPH NODE(S), OPEN, DEEP AXILLARY NODE(S) (WRVU 6.43) (Right) INTRAOPERATIVE ID (MAPPING) SENTINEL LYMPH NODE,INCLUDES INJECTION (WRVU 2.5) (Right) MODIFIER WITH NEEDLE LOC., LESION #1 (Right) MODIFIER SENTINEL NODE EXCISION (Right) Anesthesia: General Estimated Blood Loss: * No values recorded between 02/11/2022 2:35 PM and 02/11/2022 3:47 PM * Specimens removed during surgery: Order Name Source Comment Collection Info Order Time SPECIMEN TO PATHOLOGY Right partial mastectomy right breast cancer Right partial mastectomy excision 02/11/2022 2:50 PM Time specimen removed from patient: 2:50 PM Number of tissue samples (in container) 1 SPECIMEN TO PATHOLOGY Right axillary fat right breast cancer Right axillary fat excision 02/11/2022 3:02 PM Time specimen removed from patient: 3:02 PM Number of tissue samples (in container) 1 SPECIMEN TO PATHOLOGY Right axillary sentinel lymph node #1 agghy=[id number] right breast cancer Right axillary sentinel lymph node #1 eoved=492 excision 02/11/2022 3:07 PM Time specimen removed from patient: 3:06 PM Number of tissue samples (in container) 1 SPECIMEN TO PATHOLOGY Right axillary sentinel lymph node #2 zqbdw=055 right breast cancer Right axillary sentinel lymph node #2 pvzwv=313 excision 02/11/2022 3:11 PM Time specimen removed from patient: 3:10 PM Number of tissue samples (in container) 1 Drains: * No LDAs found * Surgical Closure: Primary Closure - skin incision is completely closed without any wires, suzan, drains or other devices Disposition: awakened from anesthesia, extubated and taken to the recovery room in a stable condition, having suffered no apparent untoward event. Condition: doing well without problems (Please see the Surgical Encounter Summary for any Implant and Specimen details pertinent to this patient.) HPI/Surgical Indications: Patient with a 1cm IDC of the RIGHT breast and negative clinical adenopathy. Procedure Description: Operative Procedure: Lion Reilly was admitted through Same-Day Surgery. She was brought up toRadiology where wire localization was performed and technesium was injected in the RIGHT breast. She was then brought to the Operating Room and laid supine on the operating table. The correct site and allergies were reviewed with the patient prior to sedation. Venodynes were placed on bilateral lower extremities for DVT prophylaxis. Anesthesia was administered and a LMA was placed. The RIGHT breast was prepped and draped in sterile fashion. Time-out confirmed the patient's identity, the correctsurgical site, and the administration of prophylactic antibiotics. Once this had been confirmed, attention was turned to the RIGHT breast. Local anesthetic (Lidocaine 1% and Marcaine 0.5% mixed 1:1) was injected into the area and an incision was made at 12:00 position. The wire was brought into thewound and a core of tissue circumferential was widely excised. The tissue was inked on the anatomicmargins and sent to Radiology where the lesion and clip were confirmed to be in the surgical specimen. The wound was irrigated and hemostasis was achieved with electrocautery. Clips were placed in inall anatomic areas of the excision cavity in order to identify it's boundaries. Local tissue rearrangement was performed, suture deep central breast fascai to upper fascia 5 cc Lidocaine 1% and Marcaine 0.5% mixed 1:1 was put into the cavity. The wound was closed in 2 layers: 3-0 vicryl interrupteddeep dermal sutures followed by 4-0 running monocryl. Attention was then turned to the axilla.5cc of local anesthetic was injected into the area. A transverse incision was made and the tissue was dissected down through the clavipectoral fascia. 2 sentinel nodes were identified by the gamma probe. These were excised and clips were placed on the lymphatic channels to prevent seroma formation. The nodes had ex vivo counts listed above. The remaining count within the axilla was below 10% of the hottest node. Satisfied that all sentinel nodes were removed, the wound was irrigated and hemostasis was achieved with electrocautery. The wound was closed in 2 layers: 3-0 vicryl interrupted deep dermal sutures followed by 4-0 running monocryl. The surgical areas were cleaned and dried. Surgical glue was applied to the wounds and allowed to dry. A sterile compressive dressing was applied. All counts were correct. The patient awoke from anesthesia, was extubated and brought the recovery room in stable condition. There were no apparent complications. Surgical Infection Prevention Bundle Used? No Attestation: Case Date: 02/11/2022 I was present and I participated during the entire procedure (does not need to include opening and closing). Deshawn Gallego MD 02/11/2022 documented in this encounter Plan of Treatment Upcoming Encounters Date Type Department Care Team (Late st Contact Info) Description 05/08/2024 11:00 AM EDT Office Visit Hematology and Oncology at [place] [phone] [facility] [address] HEMATOLOGY [place] [address] 01/16/2025 8:20 AM EDT Appointment Mammography/[place] [phone] [facility] [place] [address] 01/16/2025 9:20 AM EDT Office Visit General Surgery at [place] [phone] [facility] [place] [address] documented as of this encounter Procedures Procedure Name Priority Date/Time Associated Diagnosis Comments SPECIMEN TO PATHOLOGY Routine 02/11/2022 3:11 PM EDT SPECIMEN TO PATHOLOGY Routine 02/11/2022 3:07 PM EDT SPECIMEN TO PATHOLOGY Routine 02/11/2022 3:03 PM EDT SURGICAL PATHOLOGY REPORT Routine 02/11/2022 2:50 PM EDT SPECIMEN TO PATHOLOGY Routine 02/11/2022 2:50 PM EDT MODIFIER SENTINEL NODE EXCISION 02/11/2022 2:08 PM EDT right breast cancer MODIFIER WITH NEEDLE LOC., LESION #1 02/11/2022 2:08 PM EDT right breast cancer Intraop [place] Lymph Id W/Dye Injection (79383) 02/11/2022 2:08 PM EDT right breast cancer Bx/Remv, Lymph Node, Deep Axill ([id number]) 02/11/2022 2:08 PM EDT right breast cancer Mastectomy Partial ([id number]) 02/11/2022 2:08 PM EDT right breast cancer POCT GLUCOSE Routine 02/11/2022 12:17 PM EDT documented in this encounter Results * Specimen to Pathology (02/11/2022 3:11 PM EDT) AP Specimen 02/11/2022 3:11 PM EDT 02/11/2022 3:11 PM EDT Narrative [facility] - 02/11/2022 3:11 PM EDT Specimen requisition ordered. ??Separate Pathology report to follow Deshawn Gallego MD PATHOLOGY/CYTOLOGY O RDERADENISE [facility] [place] [address] * Specimen to Pathology (02/11/2022 3:07 PM EDT) AP Specimen 02/11/2022 3:07 PM EDT 02/11/2022 3:07 PM EDT Narrative [facility] - 02/11/2022 3:07 PM EDT Specimen requisition ordered. ??Separate Pathology report to follow eDshawn Gallego MD PATHOLOGY/CYTOLOGY O FREDDY Performing Organization Address [facility] [[email or web address]] [place] [address] * Specimen to Pathology (02/11/2022 3:03 PM EDT) AP Specimen 02/11/2022 3:03 PM EDT 02/11/2022 3:03 PM EDT Narrative [facility] - 02/11/2022 3:03 PM EDT Specimen requisition ordered. ??Separate Pathology report to follow Deshawn Gallego MD PATHOLOGY/CYTOLOGY O FREDDY Performing Organization Address [facility] [place] [address] * Surgical Pathology Report (02/11/2022 2:50 PM EDT) Final Diagnosis ? Location: [facility]; [facility]; A The signing pathologist has (i) examined the relevant preparation(s) for the specimen(s) and (ii) rendered or confirmed the diagnosis(es). . ? Addendum ADDENDUM DISCUSSION SPECIAL TEST PERFORMED: Test: ??Oncotype DX [facility] Case: ??, block A6 Performing Lab: ??[facility] Performing Lab Case: ??[id number] Reported by: ??Kenan Miranda MD Date reported: ??03/15/2022 For the full text of the [facility] report please refer to [facility] Pathology in the electronic health record (eDH). Electronically signed by: ?Mohan Broderick MD Verified: ??03/22/2022 14:36 ??Pathologist Performed at: ??-[facility] Dept. of Pathology, [place], [place] ? Addendum ADDENDUM DISCUSSION Immunohistochemistry Studies Ki-67 immunostain was performed at the request of Dr. Yepez. An immunohistochemical stain with the MIB-1 monoclonal antibody to the KI-67 antigen shows a KI-67 labeling index of 16% (100 cells out of 618 cells counted). Immunohistochemistry Studies: Formalin-fixed, paraffin-embedded tissue sections are studied using the polymer technique with appropriate positive and negative controls. ?These IHC studies provide the pathologist with adjunctive diagnostic information. Antibody specificity has been verified by testing antibodies on a series of in-house tissues with known immunohistochemical performance characteristics. The clinical interpretation of any antibody positive staining or its absence is evaluated within the context of clinical presentation, morphology, histopathological criteria and other diagnostic tests. Block ? Antibody ?Result (Positive/Negative) A4 ? Ki-67 ?16% Electronically signed by: ?Mohan Broderick MD Verified: ??03/08/2022 9:05 ?? Pathologist Performed at: ??-[facility] Dept. of Pathology, [place], [place] ?Surgical Pathology DIAGNOSIS A - Right breast, partial mastectomy: - Invasive ductal carcinoma (see Synoptic Report) - Biopsy site changes B - Right axillary fat, excision: - Benign breast tissue C - Right axillary sentinel lymph node #1, tjcgo=375, excision: - One lymph node, negative for metastatic carcinoma (0/1) . DIAGNOSIS D - Right axillary sentinel lymph node #2, dbfeb=963, excision: - Three lymph nodes, negative for metastatic carcinoma (0/3) Electronically signed by: ?Mohan Broderick MD Verified: ??02/16/2022 12:00 ??Pathologist Performed at: ??-[facility] Dept. of Pathology, [place], [place] SYNOPTIC Specimen ? Procedure: ??Excision (less than total mastectomy) ? Specimen Laterality: ??Right Tumor ? Histologic Type: ??Invasive ductal carcinoma ? Histologic Grade (Lynette Histologic Score): ?Glandular (Acinar) / Tubular Differentiation: ??Score 3 ?Nuclear Pleomorphism: ??Score 2 ?Mitotic Rate: ??Score 2 ?Overall Grade: ??Grade 2 (scores of 6 or 7) ? Tumor Size: ??8 Millimeters (mm) ? Ductal Carcinoma In Situ (DCIS): ??Not identified ? Lymphovascular Invasion: ??Not identified ? Treatment Effect in the Breast: ??No known presurgical therapy Margins ? Margin Status for Invasive Carcinoma: ??All margins negative for invasive ?carcinoma ?Distance from Invasive Carcinoma to Closest Margin: ??7 mm ?Closest Margin(s) to Invasive Carcinoma: ??Inferior; ??Medial ? Margin Status for DCIS: ??Not applicable (no DCIS in specimen) Regional Lymph Nodes ? Regional Lymph Node Status: ??All regional lymph nodes negative for tumor ? Total Number of Lymph Nodes Examined (sentinel and non-sentinel): ??4 ? Number of [place] Nodes Examined: ??4 Pathologic Stage Classification (pTNM, AJCC 8th Edition) ? pT Category: ??pT1b ? Regional Lymph Nodes Modifier: ??(sn): [place] node(s) evaluated. ? pN Category: ??pN0 Best Tumor Blocks for Future Studies ? Tumor Block(s): ??A6 ? [facility] 2021 Q1 Release ER, NC, and HER2 studies (performed on prior biopsy, [id number]): ER: Positive (>90%, strong) NC: Positive (>90%, strong) HER2 FISH: Negative SPECIMEN(S) SUBMITTED A - Right partial mastectomy, excision (1) B - Right axillary fat, excision (1) C - Right axillary sentinel lymph node #1 ezbpb=896, excision (1) D - Right axillary sentinel lymph node #2 duomy=309, excision (1) CLINICAL INFORMATION Right breast cancer. SPECIMEN PROCESSING A - Labeled/Fixative: Right partial mastectomy, fresh. Quantity/Size/Weight: Single, 6.0 x 5.7 x 2.0 cm, 24.47 g. SPECIMEN DESCRIPTION . SPECIMEN PROCESSING Resection Specimen: Intact, partial mastectomy. The specimen is received with a localization wire entering through the inferior aspect and an overlying 1.4 x 0.7 cm miles, unremarkable skin ellipse. Specimen radiograph: The mass, clip and wire are within the specimen radiograph.. Specimen Description: According to the established protocol the ink designations are red (medial), yellow (lateral), orange (superior), green (inferior), black (posterior) and blue (anterior). Tissue Sections: The specimen is serially sectioned perpendicular to the long axis from superior-orange to inferior-green into slices, each averaging 0.5 cm in thickness. LESION ??Description: 1.1 x 0.8 x 0.6 cm, drew-white, firm, mass, with ill-defined borders. ??Location: III through V. ??Nearest Margin(s): 0.5 cm, inferior-green. ??Other Margin(s): 0.6 cm, medial-red. ??Other Margin(s): 0.8 cm, anterior-blue. ??Other Margin(s): 1.2 cm, lateral-yellow. ??Other Margin(s): 1.3 cm, posterior-black. ??Other Margin(s): 1.3 cm, superior-orange. ??Wire/clip: A [place] biopsy clip is identified within the lesion, in slice IV. The localization wire enters through slice V. Parenchyma: Miles-yellow adipose tissue with minimal drew-white fibrous tissue. Sections/Processing: French Binding Folder sections in 9 cassettes as follows: ?A1: Slice I, food products sales representative perpendicular superior margin ?A2: Slice III, lesion to anterior and posterior margins ?A3: Slice III, food products sales representative lateral margin ?A4-A5: Slice IV, lesion to anterior margin with skin (biopsy clip site) ?A6: Slice V lesion to medial and inferior margins ?A7-A9: Slice , entire perpendicular inferior margin Ischemic Time: 47 minutes B - Labeled/Fixative: Right axillary fat, fresh. Quantity/Size: Single, 3.0 x 2.0 x 0.5 cm. Tissue Description: Portion of miles-yellow adipose tissue. No lymph nodes are identified. Sections/Processing: Entirely submitted in 2 cassettes labeled B1-B2. C - Labeled/Fixative: Right axillary sentinel lymph node #1 airml=730, fresh. Quantity/Size: Single, 1.9 x 1.5 x 0.7 cm. Tissue Description: Portion of miles-yellow adipose tissue containing a single miles-pink candidate lymph node measuring 1.1 x 0.8 x 0.5 cm. Sections/Processing: The lymph node is quadrisected and entirely submitted in 1 cassette labeled C1. D - Labeled/Fixative: Right axillary sentinel lymph node #2 count = 677, fresh. Quantity/Size: Single, 3.0 x 1.7 x 1.2 cm. Tissue Description: Portion of miles-yellow adipose tissue containing three miles-pink candidate lymph nodes ranging from 0.3 x 0.2 x 0.2 cm to 1.4 x 0.9 x 0.5 cm. Sections/Processing: The lymph nodes are entirely submitted in 3 cassettes as follows: ?D1: Single candidate lymph node, quadrisected ?D2: Single candidate lymph node, trisected ?D3: Single intact candidate lymph node ??jnr 03/22/2022 2:36 PM EDT [facility] [facility] SENTINEL LYMPH NODE / Unknown 02/11/2022 2:50 PM EDT 02/11/2022 2:50 PM EDT SOFT TISSUE MASS / Unknown 02/11/2022 2:50 PM EDT 02/11/2022 2:50 PM EDT SENTINEL LYMPH NODE / Unknown 02/11/2022 2:50 PM EDT 02/11/2022 2:50 PM EDT SENTINEL LYMPH NODE / Unknown 02/11/2022 2:50 PM EDT 02/11/2022 2:50 PM EDT Deshawn Gallego MD PATHOLOGY/CYTOLOGY O RDERADENISE [facility] [place] [address] * Specimen to Pathology (02/11/2022 2:50 PM EDT) AP Specimen 02/11/2022 2:50 PM EDT 02/11/2022 2:50 PM EDT Narrative [facility] - 02/11/2022 2:50 PM EDT Specimen requisition ordered. ??Separate Pathology report to follow Deshawn Gallego MD PATHOLOGY/CYTOLOGY O FREDDY Performing Organization Address City/[facility]/ZIP Co de Phone Number [facility] [place] [address] * POCT Glucose (02/11/2022 12:17 PM EDT) Glucose, POC 75 65 - 199 mg/dL [facility] Comment: Supplemental ranges: <140 mg/dL before meals <180 mg/dL all other times of the day Blood 02/11/2022 12:1 7 PM EDT 02/11/2022 12:17 PM EDT Deshawn Gallego MD POINT OF CARE TEST O JEOVANYERADENISE Performing Organization Address City/[facility]/ZIP Co de Phone Number [facility] [place] [address] documented in this encounter Visit Diagnoses Not on filedocumented in this encounter Administered Medications Inactive Administered Medications - up to 3 most recent administrations Medication Order MAR Action Action Date Dose Rate Site acetaminophen (Tylenol) tablet 650 mg 650 mg, Oral, ONCE, 1 dose, On Jocelyn 02/11/22 at 1230, Maximum dose of acetaminophen is 4000 mg from all sources in 24 hours. When ordered for pain, acetaminophen should be given even when other ordered pain medications are indicated. , Day of Surgery (Day of Procedure), Routine Given 02/11/2022 12:25 PM EDT 650 mg BUpivacaine (pf) (Marcaine) (7.5 mg/mL) 0.75% injection ONCE PRN, Starting on Jocelyn 02/11/22 at 1536, Until Jocelyn 02/11/22 at 2008, Intra-Operative (Intra-Procedure), Routine Given 02/11/2022 3:36 PM EDT 8 mLs 19- Surgical Site lidocaine (pf) (Xylocaine) (10 mg/mL) 1% injection ONCE PRN, Starting on Jocelyn 02/11/22 at 1536, Until Jocelyn 02/11/22 at 2008, Intra-Operative (Intra-Procedure), Routine Given 02/11/2022 3:36 PM EDT 14 mLs 19- Surgical Site documented in this encounter Active and Recently Administered Medications Times are shown in EDT. Scheduled Medication Order 02/09/2022 02/10/2022 02/11/2022 acetaminophen (Tylenol) tablet 650 mg (COMPLETED) 650 mg, Oral, ONCE, 1 dose, On Jocelyn 02/11/22 at 1230, Maximum dose of acetaminophen is 4000 mg from all sources in 24 hours. When ordered for pain, acetaminophen should be given even when other ordered pain medications are indicated. , Day of Surgery (Day of Procedure), Routine 1225 (Given - Provid er: Marycruz Negron RN) ceFAZolin (Ancef) 2 g vial attach to sodium chloride 0.9% 100 mL Mini-Bag Plus 2 g, Intravenous, EVERY 3 HOURS, 1 dose, First dose on Jocelyn 02/11/22 at 1230, Administer over 30 Minutes, Intra-Operative (Intra-Procedure), Indication for (Active or Suspected): Prophylaxis 1230 (Due) cefTRIAXone (Rocephin) 2 g vial attach to sodium chloride 0.9% 50 mL Mini-Bag Plus 2 g, Intravenous, WELDING TESTER TO O.R., 1 dose, On Jocelyn 02/11/22 at 1400, Administer over 30 Minutes, Indication for (Active or Suspected): Prophylaxis 1400 (Due) PRN Medication Order 02/09/2022 02/10/2022 02/11/2022 BUpivacaine (pf) (Marcaine) (7.5 mg/mL) 0.75% injection (CANCELED) ONCE PRN, Starting on Jocelyn 02/11/22 at 1536, Until Jocelyn 02/11/22 at 2008, Intra-Operative (Intra-Procedure), Routine 1536 (Given - Provid er: Deshawn Gallego MD) lidocaine (pf) (Xylocaine) (10 mg/mL) 1% injection (CANCELED) ONCE PRN, Starting on Jocelyn 02/11/22 at 1536, Until Jocelyn 02/11/22 at 2008, Intra-Operative (Intra-Procedure), Routine 1536 (Given - Provid er: Deshawn Gallego MD) documented in this encounter Care Teams Clamp Jig Assembler Relationship Specialty Start Date End Date Brady Muller MD [address] [place] [id number] PCP - General General Internal Medicine 12/14/21 documented as of this encounter
--- OUTSIDE RECORDS SUMMARY | 2024-03-23 16:09 | XMS_ITS | Encounter Summary ---
[place] [address] Care Team Providers Care Hot Frame Tender Name Role Phone Brady Muller MD Primary Care Provider [phone] Encounter Details Date Type Department Care Team (Late st Contact Info) Description 04/08/2022 4:30 PM EDT Office Visit Hematology [place] [phone] Damaris Madden I, RN Malignant neoplasm of breast in female, estrogen [...] as of this encounter Progress Notes * Damaris Madden RN - 04/08/2022 4:30 PM EDT RESEARCH NURSE OFFICE NOTE 04/08/22 NR-BR007: A Phase III Clinical Trial Evaluating DE-escalation of Breast RAdiation (BJORN) for Conservative Treatment of Stage I, Hormone Sensitive, HER2-Negative, Oncotype Recurrence Score < 18 Breast Cancer SUBJECTIVE Lion Reilly presented to hem-onc clinic to review endocrine therapy with Dr. Yepez. Lion Reilly signed consent for BR007 on 04/05/22 and was randomized to Arm 2: NO Breast Radiation + endocrine therapy. Reviewed that Lion Reilly can start endocrine therapy per Dr. Yepez's instructions. STUDY ASSESSMENTS COMPLETED ?? Questionnaire EDUCATION PROVIDED Lion Reilly was educated that we have scheduled her 3 months from randomization visit on 07/06/22. Patient has been advised to contact this office or her research nurse for any questions, concerns, of new or worsening symptoms if they should happen prior to her next scheduled visit. Lion Reilly verbalizes that she still has my number. PLAN 1. Patient agrees to continue on study BR007. 2. Next visit 3 months from randomization scheduled 07/06/22. 3. Begin endocrine therapy per Dr. Yepez's discretion. Patient verbalizes understanding of, and agreement with, plan. documented in this encounter Plan of Treatment Upcoming Encounters Date Type Department Care Team (Late st Contact Info) Description 05/08/2024 11:00 AM EDT Office Visit Hematology and Oncology at [place] [phone] [facility] DR HEMATOLOGY [place] [address] 01/16/2025 8:20 AM EDT Appointment Mammography/[place] [phone] Mary Mary [facility] GENERAL [place] [address] 01/16/2025 9:20 AM EDT Office [place] [address] Mary Mary [facility] GENERAL [place] [address] documented as of this encounter Visit Diagnoses Diagnosis Malignant neoplasm of breast in female, estrogen receptor positive, unspecified laterality, unspecified site of breast documented in this encounter Care Teams Hot Frame Tender Relationship Specialty Start Date End Date Brady Muller MD [address] [address] PCP - General General Internal Medicine 12/14/21 documented as of this encounter
--- OUTSIDE RECORDS SUMMARY | 2024-03-23 16:09 | XMS_ITS | Encounter Summary ---
Author Organization [facility] [place] [address] Care Team Providers Care Painter Rough Name Role Phone Brady Muller MD Primary Care Provider [phone] Encounter Details Date Type Department Care Team (Late st Contact Info) Description 03/08/2022 Telephone Radiation Oncology at [address] [phone] Mary Nevarez Social History Tobacco Use Types Packs/Day Years [...] encounter Miscellaneous Notes * Telephone Encounter - Mary Vazquez - 03/08/2022 3:37 PM EDT Lion called to postpone her Simulatiion scheduled on 03/09 because she was waiting to receive test results to confirm her care plan. She requested to be pushed out two weeks, to the end of February. I left her a voicemail to confirm we have her scheduled on 03/23 at 11am. documented in this encounter Plan of Treatment Upcoming Encounters Date Type Department Care Team (Late st Contact Info) Description 05/08/2024 11:00 AM EDT Office Visit Hematology and Oncology at [place] [phone] Sarah Yepez MD [facility] DR HEMATOLOGY [place] [address] 01/16/2025 8:20 AM EDT Appointment Mammography/DXA at [place] [phone] Mary Mary APRN [facility] [place] [address] 01/16/2025 9:20 AM EDT Office Visit General Surgery at [place] [phone] Mary Mary APRN [facility] [place] [address] documented as of this encounter Visit Diagnoses Not on filedocumented in this encounter Care Teams Painter Rough Relationship Specialty Start Date End Date Brady Muller MD [address] [address] PCP - General General Internal Medicine 12/14/21 documented as of this encounter
--- OUTSIDE RECORDS SUMMARY | 2024-03-23 16:09 | XMS_ITS | Encounter Summary ---
Author Organization [place] [id number] Care Team Providers Care Half Sole Fitter Name Role Phone Brady Muller MD Primary Care Provider [phone] Reason for Visit * Auth/Cert Specialty Diagnoses / Procedures Referred By Patience t Referred To Contact Diagnoses Breast cancer right [...] MODIFIER SENTINEL NODE EXCISION Deshawn Gallego MD [facility] [place] [address] [facility] Referral ID Status Reason Start Date Expiration Date Visits Re quested Visits Authorized [id number] 1 1 Encounter Details Date Type Department Care Team (Late st Contact Info) Description 02/11/2022 2:08 PM EDT Anesthesia Event [place] [phone] Katia Mcguire MD [facility] [place] [address] Anesthesia Record Procedure Summary Procedure Name Responsible Anesthesiologist Anesthesia Start Time Anesthesia Stop Time MASTECTOMY PARTIAL (WRVU 10.13) (Right: Breast) Katia Mcguire MD 02/11/22 1408 02/11/22 1600 Events Date Time Event Comment 02/11/2022 1408 AN Verify 1408 Start 1408 An Start Data 1409 An Induction 1415 An Intubation 1420 Anesthesia Ready 1426 Break/Relief In I assumed ca re for Break Relief before which we: 1. Identified the patient 2. Identified the responsible provider(s) 3. Reviewed the pertinent medical history 4. Discussed the surgical plan and course 5. Reviewed intra-op anesthesia management and issues during anesthesia 6. Set expectations for the relief (and/or post-procedure) period 7. Allowed opportunity for questions and acknowledgement of understanding Katia Mcguire MD 1435 Procedure Start 1450 Break/Relief Out 1554 Extubation/LMA Out 1600 an stop data 1600 Recovery or ICU Handoff Summer ent care was transferred to the destination unit staff after review of the patient's medical history, current anesthetic/surgical status and plan, according to the Provider Handoff Checklist. 1600 Stop 02/16/2022 2257 Meds Name Total Propofol 150 mg Propofol INF 179.42 mg fentaNYL 100 mcg Midazolam 2 mg IV Lidocaine 20 mg Dexamethasone 8 mg Ondansetron 4 mg ceFAZolin 2 g ketorolac (Toradol) (30 mg/mL) injection 30 mg Dexmedetomidine 10 mcg Lactated Ringers 900 mL * Agents Name O2 Air N2O Sevoflurane (et) * Blood No blood administrations on file. Lines, Drains, and Airways Type Details Placement Removal (RETIRED) Peripheral IV Line - Single Lumen 02/11/22; 1234; median cubital vein (antecubital fossa), left; ohyk-fes-[id number] catheter system; Anatomical Landmarks; US Not Used; 18 gauge; Manuel Negron RN; intradermal injection, tolerated well, appears comfortable 02/11/22 1234 by Marycruz Valdez RN Incision 02/11/22; 1435; Righ t, lateral; breast 02/11/22 1435 by Linwood Rich RN Incision 02/11/22; 1435; Righ t, upper; sternal 02/11/22 1435 by Linwood Rich RN Supraglottic LMA Type: iGel; LMA Size: 4; Inserted by: [facility] OFFSET DUPLICATING MACHINE OPERATOR; Removal Date: 02/11/22; Removal Time: 1554 02/11/22 1415 by Sidney Stanton CRNA 02/11/22 1554 by Sidney Stanton CRNA documented in this encounter Social History Tobacco Use Types Packs/Day Years [...] on file documented as of this encounter OR Notes * Anesthesia Postprocedure Evaluation - Katia Mcguire MD - 02/16/2022 10:56 PM EDT Department of Anesthesiology Post-procedure Note Patient: Lion Reilly Procedure Summary Date: 02/11/22 Room / Location: [facility] OR [facility] MAIN OR Anesthesia Start: 1408 Anesthesia Stop: 1600 Procedures: MASTECTOMY PARTIAL (WRVU 10.13) (Right Breast) BIOPSY OR EXCISION OF LYMPH NODE(S), OPEN, DEEP AXILLARY NODE(S) (WRVU 6.43) (Right Axilla) INTRAOPERATIVE ID (MAPPING) SENTINEL LYMPH NODE,INCLUDES INJECTION (WRVU 2.5) (Right ) MODIFIER WITH NEEDLE LOC., LESION #1 (Right ) MODIFIER SENTINEL NODE EXCISION (Right ) Diagnosis: (right breast cancer) Surgeons: Deshawn Gallego MD Responsible Provider: Katia Mcguire MD Anesthesia Type: general ASA Status: 1 All Anesthesia Providers: Anesthesiologist: Katia Mcguire MD OFFSET DUPLICATING MACHINE OPERATOR: Sidney Stanton CRNA Vitals Value Taken Time BP 123/71 02/11/22 1730 Temp 36.3 ??C (97.3 ??F) 02/11/22 1602 Pulse Resp 16 02/11/22 1730 SpO2 97 % 02/11/22 1730 Pain Level 0 02/11/22 1603 Patient Location: PACU/SDP Level of Consciousness: Conscious but Sleepy Pain Management: Satisfactory Analgesia PONV: None Cardiovascular Status: At Baseline and Hemodynamically Stable Respiratory Status: At Baseline and Supplemental O2 (NC or FM) Postoperative Fluid Status: Intravascular EUvolemia Possible Anesthetic Complications: NONE apparent at time of evaluation Final Primary Anesthesia Type: General (The anesthetic type performed was the same as planned.) Comments: Katia Mcguire MD * Anesthesia Preprocedure Evaluation - Katia Mcguire MD - 02/10/2022 2:47 PM EDT Pre-Anesthesia Evaluation for: Lion Reilly a 61 y.o. female. Procedure(s): MASTECTOMY PARTIAL (WRVU 10.13) BIOPSY OR EXCISION OF LYMPH NODE(S), OPEN, DEEP AXILLARY NODE(S) (WRVU 6.43) INTRAOPERATIVE ID (MAPPING) SENTINEL LYMPH NODE,INCLUDES INJECTION (WRVU 2.5) MODIFIER WITH NEEDLE LOC., LESION #1 MODIFIER SENTINEL NODE EXCISION Patient Active Problem List Diagnosis Date Noted ??? Malignant neoplasm of right breast in female, estrogen receptor positive 12/18/2021 Past Medical History: Diagnosis Date ??? Malignant neoplasm of right breast in female, estrogen receptor positive 12/18/2021 12/14/21 bx [facility]: ER+/MA+/HER2 pending right breast IDC, high grade Past Surgical History: Procedure Laterality Date ??? MAMMO US BIOPSY RIGHT Right 12/14/2021 Mammo Us Biopsy Right 12/14/2021 Delmi Gardner MD [facility] RAD MAMMOGRAPHY Social History Tobacco Use ??? Smoking status: Never Smoker ??? Smokeless tobacco: Never Used Substance Use Topics ??? Alcohol use: Yes Alcohol/week: 4.0 standard drinks Types: 4 Glasses of wine per week Social History Substance and Sexual Activity Drug Use Never No Known Allergies Medications: MAR and/or home medications have been reviewed. Physical Exam: Preprocedure Vitals Current as of 02/10/22 1447 No BP, pulse, respiration, SpO2, or temperature recorded. Height: Weight: BMI: IBW: Airway Assessment: Mallampati: II TM distance: >3 FB Neck ROM: full Cardiovascular Assessment: Rhythm: regular Rate: normal Pulmonary Assessment: unlabored breathing Dental Assessment: Misc Assessment: IV access: Peripheral line Last Filed Perioperative Cognitive Screening None Anesthesia Plan: ASA 1 general, with a(n) intravenous induction Attending Assessment: ?? Patient personally seen and examined. ?? Lion Reilly is a 61 y.o. 78 kg (BMI 24) female presenting for partial mastectomy of R breast in the setting of Breast CA PMHx: none PSHx: no major surgery Anesthetic Hx: no anticipated complications. No family hx of anesthetic complications Airway Hx: no anticipated complications Aside from the above HPI, pertinent negatives and positives listed below: No cardiopulmonary issues. No recent URI. Adequate functional status No GERD (asymptomatic in preop). Denies PONV Meds: reviewed Allergies No Known Allergies Patient Vitals in the past 24 hrs: Labs: Lab Results Component Value Date HGB 14.6 01/04/2022 PLATELET 211 01/04/2022 NA 141 01/04/2022 K 3.9 01/04/2022 CREATININE 0.90 01/04/2022 No results for input(s): ABORH in the last 7068 hours. No results found for: HA1C Glucose Lvl Date Value Ref Range Status 01/04/2022 120 65 - 199 mg/dL Final Comment: Diabetes: >=200 mg/dL plus symptoms NPO status adequate ?? Plan: - standard ASA monitors, PIV - GA with LMA ?? The patient was informed of the risks, benefits and alternatives of anesthesia. These risks included, but were not limited to, post-operative nausea and/or vomiting, pain, sore throat, dental/lip injury, and other rare but serious complications such as cardiac instability/arrest, neurologic event, awareness, severe allergic reactions, position-related nerve injuries, and need blood transfusions. All questions answered. Consent was signed and placed in chart. Region - Other Informed Consent: Anesthetic plan and risks discussed with patient. Plan discussed with OFFSET DUPLICATING MACHINE OPERATOR and attending. Anesthesia Screening documented in this encounter Plan of Treatment Upcoming Encounters Date Type Department Care Team (Late st Contact Info) Description 05/08/2024 11:00 AM EDT Office Visit Hematology [place] [address] Sarah Yepez MD [facility] DR [place] [address] 01/16/2025 8:20 AM EDT Appointment Mammography/[place] [phone] Mary Mary SANITARY CHEMIST [facility] [place] [place] [address] 01/16/2025 9:20 AM EDT Office Visit [place] [phone] Mary Mary SANITARY CHEMIST [facility] [place] [place] [address] documented as of this encounter Visit Diagnoses Not on filedocumented in this encounter Administered Medications Inactive Administered Medications - up to 3 most recent administrations Medication Order MAR Action Action Date Dose Rate Site ceFAZolin (Ancef) 1 g in dextrose 5% 50 mL infusion Intravenous, PRN, Starting on Jocelyn 02/11/22 at 1420, Until Jocelyn 02/11/22 at 1600, Administer over 30 Minutes, Anesthesia Intra-op Given 02/11/2022 2:20 PM EDT 2 g dexAMETHasone (Decadron) injection Intravenous, PRN, Starting on Jocelyn 02/11/22 at 1419, Until Jocelyn 02/11/22 at 1600, Anesthesia Intra-op, Routine Given 02/11/2022 2:19 PM EDT 8 mg dexmedeTOMIDine (Precedex) (4 mcg/mL) bolus injection (Anesthsia) Intravenous, PRN, Starting on Jocelyn 02/11/22 at 1550, Until Jocelyn 02/11/22 at 1600, Anesthesia Intra-op, Routine Given 02/11/2022 3:50 PM EDT 10 mcg fentaNYL (pf) (50 mcg/mL) multi-dose injection Intravenous, PRN, Starting on Jocelyn 02/11/22 at 1425, Until Jocelyn 02/11/22 at 1600, Anesthesia Intra-op, Routine Given 02/11/2022 3:49 PM EDT 25 mcg Given 02/11/2022 3:08 PM EDT 25 mcg Given 02/11/2022 2:35 PM EDT 25 mcg ketorolac (Toradol) (30 mg/mL) injection Intravenous, PRN, Starting on Jocelyn 02/11/22 at 1531, Until Jocelyn 02/11/22 at 1600, Anesthesia Intra-op, Routine Given 02/11/2022 3:31 PM EDT 30 mg lactated ringers infusion Intravenous, CONTINUOUS PRN, Starting on Jocelyn 02/11/22 at 1402, Until Jocelyn 02/11/22 at 1600, Anesthesia Intra-op New Bag 02/11/2022 2:02 PM EDT lidocaine (pf) (Xylocaine) (20 mg/mL) 2% injection syringe Intravenous, PRN, Starting on Jocelyn 02/11/22 at 1414, Until Jocelyn 02/11/22 at 1600, Anesthesia Intra-op, Routine Given 02/11/2022 2:14 PM EDT 20 mg midazolam (pf) (Versed) (1 mg/mL) multi-dose injection Intravenous, PRN, Starting on Jocelyn 02/11/22 at 1404, Until Jocelyn 02/11/22 at 1600, Anesthesia Intra-op, Routine Given 02/11/2022 2:04 PM EDT 2 mg ondansetron (pf) (Zofran) (2 mg/mL) injection Intravenous, PRN, Starting on Jocelyn 02/11/22 at 1531, Until Jocelyn 02/11/22 at 1600, Anesthesia Intra-op, Routine Given 02/11/2022 3:31 PM EDT 4 mg propofoL (Diprivan) (10 mg/mL) infusion Intravenous, CONTINUOUS PRN, Starting on Jocelyn 02/11/22 at 1416, Until Jocelyn 02/11/22 at 1600, Anesthesia Intra-op, Routine New Bag 02/11/2022 2:16 PM EDT 30 mcg/kg/min 12.816 mL/hr propofoL (Diprivan) 10 mg/mL bolus injection (Anesthesia) Intravenous, PRN, Starting on Jocelyn 02/11/22 at 1414, Until Jocelyn 02/11/22 at 1600, Anesthesia Intra-op Given 02/11/2022 2:14 PM EDT 150 mg documented in this encounter Care Teams Half Sole Fitter Relationship Specialty Start Date End Date Brady Muller MD [address] [address] PCP - General General Internal Medicine 12/14/21 documented as of this encounter
--- OUTSIDE RECORDS SUMMARY | 2024-03-23 16:09 | XMS_ITS | Encounter Summary ---
[place] [address] Care Team Providers Care Transportation Sales Consultant Name Role Phone Brady Muller MD Primary Care Provider [phone] Reason for Referral * Diagnostic Test (Routine) - Closed Specialty Diagnoses / Procedures Referred By Contac t Referred To Contact Radiology Diagnoses Malignant neoplasm of right breast in female, estrogen receptor positive, unspecified site of breast Procedures MRI Breast wwo Contrast Deshawn Monique MD [facility] [place] [address] [place] [address] Referral ID Status Reason Start Date Expiration Date V isits Requested Visits Authorized [id number] Closed Specialty Service Requested 12/22/2021 02/19/2022 1 1 Reason for Visit * Diagnostic Test (Routine) - Closed Specialty Diagnoses / Procedures Referred By Contac t Referred To Contact Radiology Diagnoses Malignant neoplasm of right breast in female, estrogen receptor positive, unspecified site of breast Procedures MRI Breast wwo Contrast Deshawn Monique MD [facility] [place] [address] [place] [address] Referral ID Status Reason Start Date Expiration Date V isits Requested Visits Authorized [id number] Closed Specialty Service Requested 12/22/2021 02/19/2022 1 1 Encounter Details Date Type Department Care Team (Latest Contact Info) Description 01/04/2022 1:07 PM EDT - 01/04/2022 11:59 PM EDT Hospital Encounter MRI at [place] [phone] Enirqueta Reid MD [facility] [place] [address] Malignant neoplasm of right breast in female, estrogen receptor positive, unspecified site of breast Discharge Disposition: Home Social History Tobacco Use Types Packs/Day Years Used Date Smoking Tobacco: Never Assessed Overall Financial Resource Strain (CARDIA) Answe r [...] EDT Office Visit [place]ematology [place] [address] Sarah Yepez MD [facility] DR HEMATOLOGY [place] [address] 01/16/2025 8:20 AM EDT Appointment Mammography/[place] [address] Mary Mary APRN [facility] [place] [address] 01/16/2025 9:20 AM EDT Office [place] [address] Mary Mary APRN [facility] [place] [address] documented as of this encounter Procedures Procedure Name Priority Date/Time Associated Diagnosis Comments MRI BREAST WWO CONTRAST BILAT Routine 01/04/2022 2:42 PM EDT Malignant neoplasm of right breast in female, estrogen receptor positive, unspecified site of breast documented in this encounter Results * MRI Breast wwo Contrast Bilat (01/04/2022 2:42 PM EDT) Anatomical Region Laterality Modality Breast Bilateral Magnetic Resonan ce Impressions 01/04/2022 4:08 PM EDT Known malignancy right breast 1:00 radian 16 cm from the nipple measuring 0.9 cm by MRI RECOMMENDATION:Definitive surgical management. LEFT BREAST 1. Normal RIGHT BREAST ??6. Known malignancy Thank you for letting us participate in the care of this patient. ??If you are a health care provider and have any questions regarding this report, please contact the number below. ??For patients who have questions please contact the health cattle care worker that requested your imaging first. ? Narrative 01/04/2022 4:08 PM EDT BILATERAL BREAST MRI CLINICAL INDICATION: ??Known malignancy right breast 1:00 radian 13 cm from the nipple measuring 0.8 cm TECHNIQUE: Multiplanar sequences were obtained pre- and post- gadolinium enhancement, to include SPGR weighted dynamic run-off and subtraction sequences obtained after the intravenous administration of 15 ccs of Dotarem. Computer algorithm analysis for lesion detection and kinetic contrast enhancement curve analysis was performed, using Urvew software. COMPARISON STUDIES: Compared and/or correlated with prior studies including 11/25/2021, 12/04/2021, 12/14/2021. FINDINGS: Background Enhancement Pattern (first post gadolinium image): Minimal Amount of Fibroglandular Tissue: Scattered fibroglandular tissue LEFT Breast: There are no morphologic abnormalities or areas of abnormal parenchymal enhancement in the left breast. RIGHT Breast:The known malignancy is directly associated with susceptibility artifact from the marker clip. This is located in the upper inner quadrant approximate 1:00 radian. The lesion measures 0.9 cm and is 16 cm from the nipple by MRI. There are no additional lesions seen.. Specific features of the right breast lesion(s) is/are as follows: RIGHT BREAST LESION 1: ??0.9 cm Mass Upper inner quadrant ??1 O'Clock 16 cm from the nipple by MRI Mass Shape: Irregular Margins: Not circumscribed - Irregular Enhancement: Homogenous Delayed phase: Washout Lymph Node Basins/Other: There is no evidence of internal mammary or axillary adenopathy.. No significant abnormalities are seen in the chest wall or skin.. Enriqueta Reid MD [facility] MRI ORDERABLES documented in this encounter Visit Diagnoses Diagnosis Malignant neoplasm of right breast in female, estrogen receptor positive, unspecified site of breast documented in this encounter Administered Medications Inactive Administered Medications - up to 3 most recent administrations Medication Order MAR Action Action Date Dose Rate Site gadoterate meglumine (Dotarem) (0.5 mMol/mL) injection solution 0-100 mL 0-100 mL, Intravenous, ONCE PRN, 1 dose, Starting on Tue01/04/22 at 1443, Until Tue01/04/22 at 1443, Per Protocol, Radiology Contrast, Routine Given 01/04/2022 2:43 PM EDT 15 mLs documented in this encounter Care Teams Transportation Sales Consultant Relationship Specialty Start Date End Date Brady Muller MD [address] [address] PCP - General General Internal Medicine 12/14/21 documented as of this encounter
--- OUTSIDE RECORDS SUMMARY | 2024-03-23 16:09 | XMS_ITS | Encounter Summary ---
Author Organization [facility] [place] [address] Care Team Providers Care Title Processor Name Role Phone Brady Muller MD Primary Care Provider [phone] Encounter Details Date Type Department Care Team (Late st Contact Info) Description 04/06/2022 Telephone Radiation Oncology at [address] [address] Susy Israel, RN Social History Tobacco Use Types Packs/Day [...] encounter Miscellaneous Notes * Telephone Encounter - Susy Israel RN - 04/06/2022 12:41 PM EDT Reasearch Nurse Telephone Note [place], [place] Study Number: [id number] Description: Testing the usual treatment of radiation therapy and hormonal therapy to hormonal therapy alone for low-risk ,early stage breast cancer. Randomized to hormone therapy alone arm. 12:25 PM Called patient's mobile number listed as preferred number. No answer and it went to voice mail. I left brief message that the research study randomization results went to hormone therapy alone with no radiation treatments. I left my name and phone number for her to call me back with any questions. 14:25 PM called pt again to make sure she has information of medical oncology appointment with Dr Yepez on 04/08 4:30. Called , same number with call going to voice mail. I left message with this information. 14:44 Patient called me back ; She confirmed receiving this information and Patient verbalized understanding of these instructions. documented in this encounter Plan of Treatment Upcoming Encounters Date Type Department Care Team (Late st Contact Info) Description 05/08/2024 11:00 AM EDT Office Visit Hematology [place] [address] Sarah Yepez MD [facility] [place] [address] 01/16/2025 8:20 AM EDT Appointment Mammography/[place] [address] Mary Mary APRN [facility] [place] [address] 01/16/2025 9:20 AM EDT Office [place] [address] Mary Mary [employer] [facility] [place] [address] documented as of this encounter Visit Diagnoses Not on filedocumented in this encounter Care Teams Title Processor Relationship Specialty Start Date End Date Brady Muller MD [address] [place] [address] PCP - General General Internal Medicine 12/14/21 documented as of this encounter
--- OUTSIDE RECORDS SUMMARY | 2024-03-23 16:09 | XMS_ITS | Encounter Summary ---
[place] [address] Care Team Providers Care Enterprise Resource Analyst Name Role Phone Brady Muller MD Primary Care Provider [phone] Reason for Visit * Reason Onset Date Comments Prior Authorization 12/25/2021 Molecular ca ncer testing CPT 77059 is a covered benefit. Encounter Details Date Type Department Care Team (Late st Contact Info) Description 12/25/2021 Telephone [place] [phone] Dianna Ugarte Prior Authorization (Molecular cancer testing CPT 32666 is a covered benefit./) Social History Tobacco Use Types Packs/Day Years [...] encounter Miscellaneous Notes * Telephone Encounter - Dianna Ugarte - 12/25/2021 3:36 PM EDT Molecular cancer testing: CPT 91595 is a covered benefit: I received an e-mail from Sera in [employer] ([id number]) requesting coverage review for CPT 30767 which is césar done on the patient???s right breast cancer tissue obtained on 12/14/21. Ordering provider: Delmi Gardner MD. Per a call to [employer] ( ), [place] [employer] policy [id number] is an active PPO with no future term date. [facility] is in-network. CPT 69828 is a covered benefit with no authorization needed. Claim will be paid at 100%. Ref: Shauna/[id number]. I will e-mail Sera to let her know of approved coverage. documented in this encounter Plan of Treatment Upcoming Encounters Date Type Department Care Team (Late st Contact Info) Description 05/08/2024 11:00 AM EDT Office Visit Hematology and Oncology at [place] [phone] Sarah Yepez MD [facility] [address] [place] [address] 01/16/2025 8:20 AM EDT Appointment Mammography/DXA at [place] [phone] Mary Mary [facility] [place] [address] 01/16/2025 9:20 AM EDT Office Visit General Surgery at [place] [phone] Mary Mray CAUSE ANALYST [facility] [place] [address] documented as of this encounter Visit Diagnoses Not on filedocumented in this encounter Care Teams Enterprise Resource Analyst Relationship Specialty Start Date End Date Brady Muller MD [address] [place] [address] PCP - General General Internal Medicine 12/14/21 documented as of this encounter
--- OUTSIDE RECORDS SUMMARY | 2024-03-23 16:09 | XMS_ITS | Encounter Summary ---
[place] [address] Care Team Providers Care Pricing Analyst Name Role Phone Brady Muller MD Primary Care Provider [phone] Encounter Details Date Type Department Care Team (Late st Contact Info) Description 01/06/2022 Orders [place] [address] Deshawn Gallego MD [facility] [place] [address] Malignant neoplasm of right breast in female, [...] EDT Office Visit Hematology [place] [phone] Sarah Yepez MD [facility] HEMATOLOGY AND ONCOLOGY [place], [place] [address] 01/16/2025 8:20 AM EDT Appointment Mammography[place] [address] Mary Mary, [facility] [place] [address] 01/16/2025 9:20 AM EDT Office [place] [address] Mary Mary [facility] [place] [address] documented as of this encounter Results * Mammo Specimen Right (02/11/2022 3:00 PM EDT) Anatomical Region Laterality Modality Breast Right Mammography Impressions 02/11/2022 3:12 PM EDT Positive specimen x-ray as described. Results phoned to the operating surgeon intraoperatively. Thank you for letting us participate in the care of this patient. ??If you are a health care provider and have any questions regarding this report, please contact the number below. ??For patients who have questions please contact the health health care specialist that requested your imaging first. ? Narrative 02/11/2022 3:12 PM EDT EXAMINATION: Specimen x-ray INDICATION: Intraoperative specimen image for adequacy of lesion and/or clip removal TECHNIQUE: A single projection specimen x-ray from the RIGHT breast is obtained superimposed on alphanumeric grid COMPARISON: This is correlated with preoperative imaging FINDINGS: The mass, clip and wire are within the specimen radiograph. By single plane mammography the margins are clear Deshawn Gallego MD IMG MAMMO ORDERABLES * Mammo US Needle Localization Right (02/11/2022 12:02 PM EDT) Anatomical Region Laterality Modality Breast Right Mammography Narrative 02/11/2022 12:12 PM EDT NEEDLE LOCALIZATION OF LESION IN THE RIGHT BREAST AND SENTINEL NODE INJECTION CLINICAL HISTORY: abnormal finding . Lesion: Right breast mass and clip at 1 Oclock 13 cm from the nipple Following skin cleansing and injection of approximately 3 cc 1% lidocaine, a needle localization of the suspicious area in the Right breast was performed from the inferior approach with ultrasound guidance. A 5 cm FanLib needle was used. Cranio-caudal and 90 degree digital mammography views were obtained following localization to document wire position. ??Images were annotated on PACS for the operating surgeon. A sentinel node injection was performed using Less than 2 millicuries of Tc-99m Tilmanocept. ??A third of the dose was injected intradermally at 12:00 and the rest into subareolar parenchyma. ??No additional imaging was performed. Procedural attestation: Resident: Maximus I was present with the resident for the estes component(s) of the procedure and otherwise remained immediately available for the duration of the procedure. I attest to having personally viewed the images/test and approve the above interpretation. Thank you for letting us participate in the care of this patient. ??If you are a health care provider and have any questions regarding this report, please contact the number below. ??For patients who have questions please contact the health health care specialist that requested your imaging first. ? Deshawn Gallego MD IMG MAMMO ORDERABLES * Mammo [place] Node Injection (02/11/2022 12:01 PM EDT) Anatomical Region Laterality Modality Breast N/A Mammography Narrative 02/11/2022 12:12 PM EDT NEEDLE LOCALIZATION OF LESION IN THE RIGHT BREAST AND SENTINEL NODE INJECTION CLINICAL HISTORY: abnormal finding . Lesion: Right breast mass and clip at 1 Oclock 13 cm from the nipple Following skin cleansing and injection of approximately 3 cc 1% lidocaine, a needle localization of the suspicious area in the Right breast was performed from the inferior approach with ultrasound guidance. A 5 cm FanLib needle was used. Cranio-caudal and 90 degree digital mammography views were obtained following localization to document wire position. ??Images were annotated on PACS for the operating surgeon. A sentinel node injection was performed using Less than 2 millicuries of Tc-99m Tilmanocept. ??A third of the dose was injected intradermally at 12:00 and the rest into subareolar parenchyma. ??No additional imaging was performed. Procedural attestation: Resident: Maxiums I was present with the resident for the estes component(s) of the procedure and otherwise remained immediately available for the duration of the procedure. I attest to having personally viewed the images/test and approve the above interpretation. Thank you for letting us participate in the care of this patient. ??If you are a health care provider and have any questions regarding this report, please contact the number below. ??For patients who have questions please contact the health health care specialist that requested your imaging first. ? Deshawn Gallego MD IMG MAMMO ORDERABLES documented in this encounter Visit Diagnoses Diagnosis Malignant neoplasm of right breast in female, estrogen receptor positive, unspecified site of breast Malignant neoplasm of right breast in female, estrogen receptor positive, unspecified site of breast Malignant neoplasm of right breast in female, estrogen receptor positive, unspecified site of breast Malignant neoplasm of right breast in female, estrogen receptor positive, unspecified site of breast documented in this encounter Care Teams Pricing Analyst Relationship Specialty Start Date End Date Brady Muller MD [address] [address] PCP - General General Internal Medicine 12/14/21 documented as of this encounter
--- OUTSIDE RECORDS SUMMARY | 2024-03-23 16:09 | XMS_ITS | Encounter Summary ---
[place] [address] Care Team Providers Care Chaperon Name Role Phone Brady Muller MD Primary Care Provider [phone] Encounter Details Date Type Department Care Team (Late st Contact Info) Description 01/27/2022 Patient Outreach Hematology [place] [phone] Mira Chapman, RN Social History Tobacco Use Types Packs/Day [...] as of this encounter Progress Notes * Mira Chapman RN - 01/27/2022 10:38 AM EDT [facility] Nurse Navigator Call??for the Comprehensive Breast Program (CBP) ?? Lion Reilly is a 61 y.o. female with newly diagnosed ER/OK+/HER2- right breast invasive ductal carcinoma (right breast biopsy 12/14/2021 at [facility]). She met with Dr. Gallego in surgical oncology on 01/06/22. Partial mastectomy and SLN surgery is scheduled for 02/11 at [facility]. Reason for call: Lion called today to states she is eligible for her second COVID shot and asks about the timing in reference to 02/11 surgery (lumpectomy, SLN). Message sent today to Dr. Gallego by this ghost writer Do you want her to AVOID the week before or week after surgery, or some other schedule? Plan: Will follow up with Lion with Dr. Gallego's recommendation(s). Dr. Gallego is away this week. 01/28 LM for Lion on her cell phone to let her know that Dr. Gallego is away this week and requestedthat she contact his office at [phone] next week to ask him the question. Lion has our contact numbers. documented in this encounter Plan of Treatment Upcoming Encounters Date Type Department Care Team (Late st Contact Info) Description 05/08/2024 11:00 AM EDT Office Visit Hematology and Oncology at [place] [phone] Sarah Yepez MD [facility] HEMATOLOGY [place] [address] 01/16/2025 8:20 AM EDT Appointment Mammography/[place] [address] Mary Mary APRN [facility] [place] [address] 01/16/2025 9:20 AM EDT Office Visit General Surgery at [place] [phone] Mary Mary APRN [facility] [place] [address] documented as of this encounter Visit Diagnoses Not on filedocumented in this encounter Care Teams Chaperon Relationship Specialty Start Date End Date Brady Muller MD [address] [address] PCP - General General Internal Medicine 12/14/21 documented as of this encounter
--- OUTSIDE RECORDS SUMMARY | 2024-03-23 16:09 | XMS_ITS | Encounter Summary ---
[place] [address] Care Team Providers Care Manager Agricultural Name Role Phone Brady Muller MD Primary Care Provider [phone] Encounter Details Date Type Department Care Team (Late st Contact Info) Description 03/04/2022 Telephone Hematology [place] [address] Delmi Herr Social History Tobacco Use Types Packs/Day Years [...] encounter Miscellaneous Notes * Telephone Encounter - Delmi Herr - 03/04/2022 2:11 PM EDT Submitted auth to [employer] for Oncotype: [employer] [id number] valid 03/04-05/02 for [id number]. Submitted request for testing online to [facility] documented in this encounter Plan of Treatment Upcoming Encounters Date Type Department Care Team (Late st Contact Info) Description 05/08/2024 11:00 AM EDT Office Visit Hematology [place] [address] Sarah Yepez MD [facility] DR HEMATOLOGY [place] [address] 01/16/2025 8:20 AM EDT Appointment Mammography/DXA at [place] [phone] Mary Mary APRN [facility] [place] [address] 01/16/2025 9:20 AM EDT Office [place] [address] Mary Mary APRN [facility] [place] [address] documented as of this encounter Visit Diagnoses Not on filedocumented in this encounter Care Teams Manager Agricultural Relationship Specialty Start Date End Date Brady Muller MD [address] [place] [address] PCP - General General Internal Medicine 12/14/21 documented as of this encounter
--- OUTSIDE RECORDS SUMMARY | 2024-03-23 16:09 | XMS_ITS | Encounter Summary ---
Author Organization [facility] Address [facility] [place] [address] Care Team Providers Care Carburetor Rebuilder Name Role Phone Brady Muller MD Primary Care Provider [phone] Reason for Visit * Reason Comments Follow-up Encounter Details Date Type Department Care Team (Late st Contact Info) Description 04/08/2022 4:30 PM EDT Office Visit Hematology [place] [address] [facility] [address] HEMATOLOGY [place] [address] Malignant neoplasm of breast in female, estrogen [...] Sign Reading Time Taken Comments Blood Pressure 113/73 04/08/2022 4:25 PM EDT Pulse 81 04/08/2022 4:25 PM EDT Temperature 36.2 ??C (97.2 ??F) 04/08/2022 4:25 PM ED T Respiratory Rate 16 04/08/2022 4:25 PM EDT Oxygen Saturation 99% 04/08/2022 4:25 PM EDT Inhaled Oxygen Concentration - - Weight 69.3 kg (152 lb 12.5 oz) 04/08/2022 4:25 PM EDT Height 177.1 cm (5' 9.72) 04/08/2022 4:25 PM ED T Body Mass Index 22.1 04/08/2022 4:25 PM EDT documented in this encounter Progress Notes * Zhane Yepez MD - 04/08/2022 4:30 PM EDT Lion Reilly is a 62 y.o. female with a stage 1 right luminal breast cancer here for an opinion regarding the next step in her care. Surg Onc: Dr Gallego 04/08/2022 Here for followup and wrap up from previous consultation 1. oncotype RS: 11 ( 3% recurrence risk with hormones) 2. Ki 67: 16% Enrolled in BR 007 and randomized to NO breast RT. Breast Cancer History as follows: 12/14/2021 MMG and US: Right breast 0.8 cm mass right breast 1:00 12/14/2021 right breast biopsy Path PD IDC ER>90 DC >90 HER 2 ary neg by FISH 01/04/2022: katie breast MRI: right breast 0l9 cm. No nodes 02/11/2022 RLE and SLNB (0/4) [id number] Path: IDC T= 0.8 cm No DCIS No LVI Neg margin No post op complications Past Medical History: Diagnosis Date ??? Malignant neoplasm of right breast in female, estrogen receptor positive 12/18/2021 12/14/21 bx [facility] ER+/DC+/HER2 pending right breast IDC, high grade Past Surgical History: Procedure Laterality Date ??? MAMMO US BIOPSY RIGHT Right 12/14/2021 Mammo Us Biopsy Right 12/14/2021 Delmi Gardner MD [facility] RAD MAMMOGRAPHY ??? MAMMO US NEEDLE LOCALIZATION RIGHT Right 02/11/2022 Mammo US Needle Localization Right 02/11/2022 Gali Bosch MD [facility] RAD MAMMOGRAPHY ??? PRO BX/REMV, LYMPH NODE, DEEP AXILL Right 02/11/2022 BIOPSY OR EXCISION OF LYMPH NODE(S), OPEN, DEEP AXILLARY NODE(S) (WRVU 6.43) performed by Deshawn Gallego MD at [facility] MAIN OR ??? PRO INTRAOP SENTINEL LYMPH ID W/DYE INJECTION Right 02/11/2022 INTRAOPERATIVE ID (MAPPING) SENTINEL LYMPH NODE,INCLUDES INJECTION (WRVU 2.5) performed by Deshawn Gallego MD at [facility] MAIN OR ??? PRO MASTECTOMY PARTIAL Right 02/11/2022 MASTECTOMY PARTIAL (WRVU 10.13) performed by Deshawn Gallego MD at [facility] MAIN OR Csn x 3 Meds: no [...] 24 hrs: Temp Pulse Resp BP SpO2 04/08/22 1625 36.2 ??C (97.2 ??F) 81 16 113/73 99 % Constitutional: She is oriented to person, [...] and affect. Her behavior is normal A/P iLon Reilly is a 62 y.o. female With a stage 1 luminal breast cancer on the right who is s/p RLE and SLNB with a low oncotype scoreof 11. Hence hormonal therapy will be recommended. She is enrolled on and randomized to NO RT I recommend the followin.Breast Cancer: Hormonal therapy x 10 years Favor anastrazole- dexa not done but will order. Is has osteopenia or osteoporosis will send to [facility]. Teaching needed. RX sent to pharmacy 2 On - No RT 3. Genetics - seeing them in April. 4. RTC 3 mos Total time spent: 40 minutes with > 50% spend in discussion of above documented in this encounter Plan of Treatment Upcoming Encounters Date Type Department Care Team (Late st Contact Info) Description 05/08/2024 11:00 AM EDT Office Visit Hematology [place] [address] [facility] [address] HEMATOLOGY [place] [address] 01/16/2025 8:20 AM EDT Appointment Mammography/[place] [address] Mary Mary, [facility] [place] [address] 01/16/2025 9:20 AM EDT Office [place] [address] Mary Mary [facility] GENERAL SURGERY [place], [place] [id number] documented as of this encounter Results * DXA Central Spine, [...] BMD measurements and plots are available in [employer] under the imaging tab. Paper copies will be sent to providers without E-DH access. If you have received this report without the data sheet and do not have access to [employer], please contact Radiology Fire Boss at [phone] Tuesday thru Tuesday 8am-4pm. ? Bone Density Report ? Name: ?Lion Reilly Age: ? 62 Sex: ? Female Ethnicity: ? White Date of : 1960 Referring Provider: ZHANE YEPEZ Study: Bone densitometry was performed. Exam Date: May 07, 2022 Accession number: [id number] Bone Density: Region ? BMD ?T-score ??Z-score [...] questions please contact the health health care liaison that requested your imaging first. ? 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 COMPARISON: None FINDINGS: Femoral neck BMD: 0.718 g/cm2 Lowest T-score at a diagnostic region of interest: T-score: -1.2, MARTHA: Lumbar spine and femoral neck, WHO diagnosis: ??osteopenia. 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 COMPARISON: None FINDINGS: Femoral neck [...] copies will be sent to providers without Service Seeking access.If you have received this report without the data sheet and do not haveaccess to [employer], please contact Radiology Fire Boss at [phone] Tuesday thruFriday 8am-4pm. Bone Density Report Name: Lion Reilly Age: 62 Sex: Female Ethnicity: White Date of : 1960 Referring Provider: ZHANE YEPEZ Study: Bone densitometry was performed. Exam Date: May 07, 2022 Accession number: [id number] Bone Density: Region BMD T-score Z-score AP [...] patients who have questions please contactthe health health care liaison that requested your imaging first. Electronically signed by: Janey Dejesus MD, [facility]([phone]), at 05/07/2022 4:30 PM Zhane Yepez MD IMG DEXA ORDERABLES documented in this encounter Visit Diagnoses Diagnosis Malignant neoplasm of breast in female, estrogen receptor positive, unspecified laterality, unspecified site of breast Malignant neoplasm of breast in female, estrogen receptor positive, unspecified laterality, unspecified site of breast documented in this encounter Care Teams Carburetor Rebuilder Relationship Specialty Start Date End Date Brady Muller MD [address] [place] [address] PCP - General General Internal Medicine 12/14/21 documented as of this encounter
--- OUTSIDE RECORDS SUMMARY | 2024-03-23 16:09 | XMS_ITS | Encounter Summary ---
Author Organization [facility] [place] [address] Care Team Providers Care Correctional Classification Counselor Name Role Phone Brady Muller MD Primary Care Provider [phone] Encounter Details Date Type Department Care Team (Latest Contact Info) Description 02/11/2022 10:58 AM EDT - 02/11/2022 10:59 AM EDT Hospital En[place] [address] Deshawn Gallego MD [facility] [place] [address] Malignant neoplasm of right breast in female, [...] Office Visit Hematology [place] [address] Sarah Yepez MD [facility] DR [place] [address] 01/16/2025 8:20 AM EDT Appointment Mammography/[place] [address] Mary Mary [facility] [place] [address] 01/16/2025 9:20 AM EDT Office Visit [place] [phone] Mary Mary [facility] [place] [place] [address] documented as of this encounter Procedures Procedure Name Priority Date/Time Associated Diagnosis Comments MAMMO SENTINEL NODE INJECTION Routine 02/11/2022 12:01 PM EDT Malignant neoplasm of right breast in female, estrogen receptor positive, unspecified site of breast documented in this encounter Results * Mammo [place] Node Injection (02/11/2022 12:01 PM EDT) Anatomical [...] approach with ultrasound guidance. A 5 cm Loved.la needle was used. Cranio-caudal and 90 degree [...] who have questions please contact the health healthcare applications analyst that requested your imaging first. ? Electronically signed by: Gali Bosch MD, [facility] ([phone]), at 02/11/2022 12:12 PM Deshawn Gallego MD IMG MAMMO ORDERABLES documented in this encounter Visit Diagnoses Diagnosis Malignant neoplasm of right breast in female, estrogen receptor positive, unspecified site of breast documented in this encounter Care Teams Correctional Classification Counselor Relationship Specialty Start Date End Date Brady Muller MD [address] [place] [address] PCP - General General Internal Medicine 12/14/21 documented as of this encounter
--- OUTSIDE RECORDS SUMMARY | 2024-03-23 16:09 | XMS_ITS | Encounter Summary ---
[place] [address] Care Team Providers Care Visual Display Associate Name Role Phone Brady Muller MD Primary Care Provider [phone] Reason for Visit * Auth/Cert Specialty Diagnoses [...] MODIFIER SENTINEL NODE EXCISION Deshawn Gallego MD [facility] [place] [address] [facility] Referral ID Status Reason Start Date Expiration Date Visits Re quested Visits Authorized [id number] 1 1 Encounter Details Date Type Department Care Team (Latest Contact Info) Description 02/11/2022 12:00 PM EDT - 02/11/2022 6:09 PM EDT Hospital En[place] [address] Deshawn Gallego MD [facility] [place] [address] Discharge Disposition: Home Social History Tobacco Use [...] Sign Reading Time Taken Comments Blood Pressure 123/71 02/11/2022 5:30 PM EDT Pulse 82 02/11/2022 12:17 PM EDT Temperature 36.3 ??C (97.3 ??F) 02/11/2022 4:02 PM ED T Respiratory Rate 16 02/11/2022 5:30 PM EDT Oxygen Saturation 97% 02/11/2022 5:30 PM EDT Inhaled Oxygen Concentration - - [...] Gallego if not indicated below. Please call [phone] to confirm date and time of your appointment if you do not hear from us inthe week or if you need to make changes. Future Appointments Date Time Provider Department Center 03/01/2022 9:[address] Ganes[facility] Da Silva Rad Off [facility] 03/01/2022 10:00 AM Aliya Juarez MD [facility] Rad Off [facility] 03/04/2022 2:00 PM Sarah Yepez MD [facility] HEM ONC [facility] 03/10/2022 2:45 PM Deshawn Gallego MD [facility] SURG [facility] Call Doctor for: Worsening redness or drainage from your incision lasting longer than 5 days following surgery Any foul-smelling drainage from the incision Fevers greater than 101 degrees F Persistent nausea or vomiting (this may be related to opioid pain medications) Phone number for questions: [phone] before 5 PM weekdays [phone] after 5 PM and on weekends/holidays documented [...] Gonzalez MD - 02/11/2022 1:31 PM EDT [facility] General Surgery Pre-Operative History and Physical Lion Reilly is a 61 y.o. 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 MAMMO US BIOPSY RIGHT Right 12/14/2021 Mammo Us Biopsy Right 12/14/2021 Delmi Garnder MD [facility] RAD MAMMOGRAPHY ??? MAMMO US NEEDLE LOCALIZATION RIGHT Right 02/11/2022 Mammo US Needle Localization Right 02/11/2022 Gali Bosch MD [facility] RAD MAMMOGRAPHY Current Facility-Administered Medications: ??? [...] proceed. - Prophylactic antibiotics: 2g ceftriaxone ordered auto inspection specialist to OR Kelsie Gonzalez MD 02/11/2022 documented in this encounter Miscellaneous Notes * Op Note - Deshawn Gallego MD - 02/11/2022 2:35 PM EDT [facility] Operative Note Patient Name: Lion Reilly : [id number] MR#: [id number] Case Date: 02/11/2022 Surgeon: Surgeon(s) and Role: [...] PATHOLOGY Right axillary sentinel lymph node #1 dbtka=196 right breast cancer Right axillary sentinel lymph node #1 bggqr=609 excision 02/11/2022 3:07 PM Time specimen removed from patient: 3:06 PM Number of tissue samples (in container) 1 SPECIMEN TO PATHOLOGY Right axillary sentinel lymph node #2 efsnx=143 right breast cancer Right axillary sentinel lymph node #2 qodip=470 excision 02/11/2022 3:11 PM Time specimen removed [...] EDT Office Visit Hematology and Oncology at [place] [phone] Sarah Yepez MD [facility] DR HEMATOLOGY [place] [address] 01/16/2025 8:20 AM EDT Appointment Mammography/[place] [address] Mary Mary APRN [facility] [place] [address] 01/16/2025 9:20 AM EDT Office Visit General Surgery at [place] [phone] Mary Mary APRN [facility] [place] [address] documented as of this encounter Procedures Procedure [...] 2:08 PM EDT right breast cancer Intraop [place] Lymph Id W/Dye Injection ([id number]) 02/11/2022 2:08 PM EDT right breast cancer Bx/Remv, Lymph Node, Deep Axill ([id number]) 02/11/2022 2:08 PM EDT right breast cancer Mastectomy Partial ([id number]) 02/11/2022 2:08 PM EDT right breast cancer POCT GLUCOSE Routine 02/11/2022 12:17 PM EDT documented in this encounter Results * Specimen to Pathology (02/11/2022 3:11 PM EDT) AP Specimen 02/11/2022 3:11 PM EDT 02/11/2022 3:[address] [facility] - 02/11/2022 3:11 PM EDT Specimen requisition ordered. ??Separate Pathology report to follow Deshawn Gallego MD PATHOLOGY/CYTOLOGY O RDERADENISE [facility] [place] [address] * Specimen to Pathology (02/11/2022 3:07 PM EDT) AP Specimen 02/11/2022 3:07 PM EDT 02/11/2022 3:[address] [facility] - 02/11/2022 3:07 PM EDT Specimen requisition ordered. ??Separate Pathology report to follow Deshawn Gallego MD PATHOLOGY/CYTOLOGY O [facility] Performing Organization Address [facility] [place] [address] * Specimen to Pathology (02/11/2022 3:03 PM EDT) AP Specimen 02/11/2022 3:03 PM EDT 02/11/2022 3:[address] [facility] - 02/11/2022 3:03 PM EDT Specimen requisition ordered. ??Separate Pathology report to follow Deshawn Gallego MD PATHOLOGY/CYTOLOGY O [facility] Performing Organization Address [facility] de Phone Number [facility] [place] [address] * Surgical Pathology Report (02/11/2022 2:50 PM EDT) Final Diagnosis ? Location: [facility]; [facility]; A The signing pathologist has (i) examined the relevant preparation(s) for the specimen(s) and (ii) rendered or confirmed the diagnosis(es). . ? Addendum ADDENDUM DISCUSSION SPECIAL TEST PERFORMED: Test: ??Oncotype DX [facility] Case: ??, block A6 Performing Lab: ??[facility] Performing Lab Case: ??[id number] Reported by: ??Kenan Miranda MD Date reported: ??03/15/2022 For the full text of the [facility] report please refer to Non-DH Documentation Pathology in the electronic health record (eDH). Electronically signed by: ?Mohan Broderick MD Verified: ??03/22/2022 14:36 ??Pathologist Performed at: ??-[facility] Dept. of Pathology, [place], [place] ? Addendum ADDENDUM DISCUSSION Immunohistochemistry Studies [...] Verified: ??03/08/2022 9:05 ?? Pathologist Performed at: ??-[facility] Dept. of Pathology, [place], [place] ?Surgical Pathology DIAGNOSIS A - Right breast, partial mastectomy: - Invasive ductal carcinoma (see Synoptic Report) - Biopsy site changes B - Right axillary fat, excision: - Benign breast tissue C - Right axillary sentinel lymph node #1, ozhel=588, excision: - One lymph node, negative for metastatic carcinoma (0/1) . DIAGNOSIS D - Right axillary sentinel lymph node #2, xpglq=272, excision: - Three lymph nodes, negative for metastatic carcinoma (0/3) Electronically signed by: ?oMhan Broderick MD Verified: ??02/16/2022 12:00 ??Pathologist Performed at: ??-[facility] Dept. of Pathology, [facility] [place] [place] SYNOPTIC Specimen ? Procedure: ??Excision (less than total mastectomy) ? Specimen Laterality: ??Right Tumor ? Histologic Type: ??Invasive ductal carcinoma ? Histologic Grade (Rumson Histologic Score): ?Glandular (Acinar) / Tubular Differentiation: [...] (sentinel and non-sentinel): ??4 ? Number of [place] Nodes Examined: ??4 Pathologic Stage Classification (pTNM, AJCC 8th Edition) ? pT Category: ??pT1b ? Regional Lymph Nodes Modifier: ??(sn): [place] node(s) evaluated. ? pN Category: ??pN0 Best Tumor Blocks for Future Studies ? Tumor Block(s): ??A6 ? [facility] Release ER, AR, and HER2 studies (performed on prior biopsy, [id number]): ER: Positive (>90%, strong) AR: Positive (>90%, strong) HER2 FISH: Negative SPECIMEN(S) SUBMITTED A - Right partial mastectomy, excision (1) B - Right axillary fat, excision (1) C - Right axillary sentinel lymph node #1 rchpl=110, excision (1) D - Right axillary sentinel lymph node #2 zeerp=445, excision (1) CLINICAL INFORMATION Right breast cancer. [...] ??Other Margin(s): 1.3 cm, superior-orange. ??Wire/clip: A Shannan biopsy clip is identified within the lesion, in slice IV. The localization wire enters through slice V. Parenchyma: Miles-yellow adipose tissue with minimal drew-white fibrous tissue. Sections/Processing: Wire Inspector sections in 9 cassettes as follows: ?A1: Slice I, medical field representative perpendicular superior margin ?A2: Slice III, lesion to anterior and posterior margins ?A3: Slice III, medical field representative lateral margin ?A4-A5: Slice IV, lesion [...] Labeled/Fixative: Right axillary sentinel lymph node #1 myceo=267, fresh. Quantity/Size: Single, 1.9 x 1.5 x [...] lymph node ??jnr 03/22/2022 2:[address] [facility] SENTINEL LYMPH NODE / Unknown 02/11/2022 2:50 PM EDT 02/11/2022 2:50 PM EDT SOFT TISSUE MASS / Unknown 02/11/2022 2:50 PM EDT 02/11/2022 2:50 PM EDT SENTINEL LYMPH NODE / Unknown 02/11/2022 2:50 PM EDT 02/11/2022 2:50 PM EDT SENTINEL LYMPH NODE / Unknown 02/11/2022 2:50 PM EDT 02/11/2022 2:50 PM EDT Deshawn Gallego MD PATHOLOGY/CYTOLOGY O RDRAY [facility] [place] [address] * Specimen to Pathology (02/11/2022 2:50 PM EDT) AP Specimen 02/11/2022 2:50 PM EDT 02/11/2022 2:[address] [facility] - 02/11/2022 2:50 PM EDT Specimen requisition ordered. ??Separate Pathology report to follow Deshawn Gallego MD PATHOLOGY/CYTOLOGY O [facility] Performing Organization Address [facility] Co de Phone Number [facility] [place] [address] * POCT Glucose (02/11/2022 12:17 PM EDT) Glucose, POC 75 65 - 199 mg/dL [facility] Comment: Supplemental ranges: <140 mg/dL before meals <180 mg/dL all other times of the day Blood 02/11/2022 12:1 7 PM EDT 02/11/2022 12:17 PM EDT Deshawn Gallego MD POINT OF CARE TEST O [facility] Performing Organization Address City/[facility]/ZIP Co de Phone Number [facility] [place] [address] documented in this encounter Visit Diagnoses Not [...] Given 02/11/2022 12:25 PM EDT 650 mg documented in this encounter Active and Recently [...] 50 mL Mini-Bag Plus 2 g, Intravenous, SECURITY RISK ANALYST TO O.R., 1 dose, On Jocelyn 02/11/22 [...] MD) documented in this encounter Care Teams Visual Display Associate Relationship Specialty Start Date End Date Brady Muller MD [address] [place] [address] PCP - General General Internal Medicine 12/14/21 documented as of this encounter
--- OUTSIDE RECORDS SUMMARY | 2024-03-23 16:09 | XMS_ITS | Encounter Summary ---
Author Organization [facility] [place] [address] Care Team Providers Care Odd Shoe Examiner Name Role Phone Brady Muller MD Primary Care Provider [phone] Encounter Details Date Type Department Care Team (Late st Contact Info) Description 01/06/2022 [place] [id number] Naomy Dale, CAFETERIA TABLE ATTENDANT Social History Tobacco Use Types Packs/Day Years [...] as of this encounter Progress Notes * Naomy Dale MSW - 01/06/2022 12:03 PM EDT I'm able to meet with pt, Lion, to introduce myself as Comprehensive Breast Program manager social work while she is here today for surgical consultation with Dr. Gallego. She is accompanied in the exam room by her , Ziggy, and presents with stable mood and affect appropriate to situation. She converses with normal speech and volume, makes eye contact and engages in discussion about financial considerations of tx. Ting have children/grandchildren on the [facility] and also in [place]. They have a trip planned to [place] in March and have been waiting to gain information about the tx timeline with the hope that it will not impact their trip. At this time Lion is planning to undergo lumpectomy, followed by course of radiation therapy. Lion reports that she has not yet incurred her insurance deductible, and enters a new calendar year for her coverage in January, making it likely she will pay annual deductibles back to back. Lion is uncertain of her total annual financial responsibility (deductible, possible co-insurance, and [id number] max) for her coverage, and will call her plan to find out. We review that this is typicallythe only portion of tx costs that insured pts assume. We discuss potential referral to PFS for assistance determination if indicated, though Ting think a payment plan will suffice. Summary and Plan: At this time Lion denies having concerns regarding issues such financial stability, insurance, transportation, or basic needs that could impact her participation with treatment. She has my contact information and agrees to reach out as needed. I will be available to Lion to assess and respond to psychosocial needs throughout tx and recovery. Completed today: Brief assessment Patient Financial Assistance/Insurance documented in this encounter Plan of Treatment Upcoming Encounters Date Type Department Care Team (Late st Contact Info) Description 05/08/2024 11:00 AM EDT Office Visit Hematology [place] [address] Sarah Yepez MD [facility] DR [place] [address] 01/16/2025 8:20 AM EDT Appointment Mammography/[place] [phone] Mary Mary APRN [facility] [place] [address] 01/16/2025 9:20 AM EDT Office [place] [address] Mary Mary APRN [facility] [place] [address] documented as of this encounter Visit Diagnoses Not on filedocumented in this encounter Care Teams Odd Shoe Examiner Relationship Specialty Start Date End Date Brady Muller MD [address] [place] [id number] PCP - General General Internal Medicine 12/14/21 documented as of this encounter
--- OUTSIDE RECORDS SUMMARY | 2024-03-23 16:09 | XMS_ITS | Encounter Summary ---
[place] [address] Care Team Providers Care Spectrographic Analyst Name Role Phone Brady Muller MD Primary Care Provider [phone] Reason for Referral * Diagnostic Test (Routine) - Closed Specialty Diagnoses / Procedures Referred By Contac t Referred To Contact Radiology Diagnoses Malignant neoplasm of right breast in female, estrogen receptor positive, unspecified site of breast Procedures MRI Breast wwo Contrast Bilat Deshawn Gallego MD [facility] [place] [address] [place] [address] Referral ID Status Reason Start Date Expiration Date V isits Requested Visits Authorized [id number] Closed Specialty Service Requested 12/22/2021 02/19/2022 1 1 Encounter Details Date Type Department Care Team (Late st Contact Info) Description 12/16/2021 Orders [place] [address] Deshawn Gallego MD [facility] [place] [address] Malignant neoplasm of right breast in female, estrogen receptor positive, unspecified site of breast Social History Tobacco Use Types Packs/Day Years Used Date Smoking Tobacco: Never Assessed Overall Financial Resource Strain (CARDIA) Brittany barker Date Recorded How hard is it for [...] EDT Office Visit [place] [address] Sarah Yepez MD [facility] [address] [place] [address] 01/16/2025 8:20 AM EDT Appointment Mammography/[place] [address] Mary Mary LIFE SCIENCE TECHNICAL OFFICER [facility] [place] [place] [address] 01/16/2025 9:20 AM EDT Office [place] [address] Mary Mary LIFE SCIENCE TECHNICAL OFFICER [facility] [place] [place] [address] documented as of this encounter Results * MRI Breast wwo [...] have questions please contact the health career center advisor that requested your imaging first. ? Narrative [...] contrast enhancement curve analysis was performed, using [employer]eral[employer] software. COMPARISON STUDIES: Compared and/or correlated with [...] chest wall or skin.. Enriqueta Reid MD IMG MRI ORDERABLES * (ABNORMAL) Comprehensive metabolic panel (non-fasting) (01/04/2022 12:30 PM EDT) Glucose 120 65 - 199 mg/dL [facility] Comment:Diabetes: >=200 mg/d L plus symptoms Blood Urea Nitrogen 19(H) 8 - 18 mg/dL [facility] Creatinine 0.90 0.70 - 1.20 mg/dL [facility] Sodium 141 135 - 145 mmol/L [facility] Potassium 3.9 3.5 - 5.0 mmol/L [facility] Comment: Please note: ??Patients with WBC >100,000 may have falsely elevated Potassium levels. ??For accurate Potassium quantification in these patients send serum separator tube (gold top) for subsequent determinations. ??Contact the Clinical Chemistry Laboratory if there are any questions. Chloride 104 98 - 107 mmol/L [facility] Carbon Dioxide 27 22 - 31 mmol/L [facility] Anion Gap 10 5 - 15 mmol/L [facility] Calcium 9.5 8.5 - 10.5 mg/dL [facility] Protein, Total 6.9 6.1 - 8.0 g/dL [facility] Albumin 4.6 3.2 - 5.2 g/dL [facility] Aspartate Aminotransferase 23 0 - 30 unit/L [facility] Alanine Aminotransferase 16 0 - 30 unit/L [facility] Alkaline Phosphatase 71 35 - 105 unit/L [facility] Bilirubin, Total 0.5 0.2 - 1.3 mg/dL [facility] Est Glomerular Filtration Rate 69 >=60 mL/min/1. 73 m?? [facility] Comment: This patient? s estimated glomerular filtration rate (eGFR) is between 69 mL/min/1.73 m2 (patients with less muscle mass) and 79 mL/min/1.73 m2 (patients with more muscle mass) as determined by the CKD-EPI equation. Assessment of eGFR is not appropriate when creatinine concentrations are rapidly changing. For clinical decisions where creatinine clearance will affect therapy, a 24-hour urine creatinine clearance may be advised. Assignment of CKD stage 1 - 5 for patients with an eGFR near the transition point between stages may be based on clinical assessment of muscle mass and symptoms in addition to eGFR. Blood 01/04/2022 12:3 0 PM EDT 01/04/2022 12:40 PM EDT Narrative Resulting Agency Comment Spec In Lab Enriqueta Reid MD CHEMISTRY ORDERABLE S [facility] [place] [address] documented in this encounter Visit Diagnoses Diagnosis Malignant neoplasm of right breast in female, estrogen receptor positive, unspecified site of breast Malignant neoplasm of right breast in female, estrogen receptor positive, unspecified site of breast documented in this encounter Care Teams Spectrographic Analyst Relationship Specialty Start Date End Date Brady Muller MD [address] [place] [id number] PCP - General General Internal Medicine 12/14/21 documented as of this encounter
--- OUTSIDE RECORDS SUMMARY | 2024-03-23 16:09 | XMS_ITS | Encounter Summary ---
[place] [address] Care Team Providers Care Steel Spar Operator Name Role Phone Brady Muller MD Primary Care Provider [phone] Encounter Details Date Type Department Care Team (Late st Contact Info) Description 02/10/2022 Orders [place] [address] Simin Bosch MD [facility] [place] [address] Social History Tobacco Use Types Packs/Day Years [...] as of this encounter Progress Notes * Simin Bosch MD - 02/10/2022 10:40 AM EDT Pre-procedure note for needle breast biopsies performed in radiology. Procedure date: Tomorrow Procedure type: right breast NLOC and sentinel node injection Allergies: Patient has no known allergies. Medications: Current Outpatient Medications: ??? b complex vitamins Tablet, Take 1 tablet by mouth daily., Disp: , Rfl: Anticoagulation status: none stopped on: N/A Imaging reviewed and procedural plan approved by Dr. SIMIN BOSCH MD documented in this encounter Plan of Treatment Upcoming Encounters Date Type Department Care Team (Late st Contact Info) Description 05/08/2024 11:00 AM EDT Office Visit Hematology [place] [address] Sarah Yepez MD [facility] DR HEMATOLOGY [place] [address] 01/16/2025 8:20 AM EDT Appointment Mammography/[place] [address] Mary Mary [facility] [place] [address] 01/16/2025 9:20 AM EDT Office Visit General Surgery at [address] Mary Mary [facility] [place] [address] documented as of this encounter Visit Diagnoses Not on filedocumented in this encounter Care Teams Steel Spar Operator Relationship Specialty Start Date End Date Brady Muller MD [address] [place] [id number] PCP - General General Internal Medicine 12/14/21 documented as of this encounter
--- OUTSIDE RECORDS SUMMARY | 2024-03-23 16:09 | XMS_ITS | Encounter Summary ---
Author Organization [facility] [place] [address] Care Team Providers Care Grain Farmworker Name Role Phone Brady Muller MD Primary Care Provider [phone] Encounter Details Date Type Department Care Team (Late st Contact Info) Description 03/10/2022 [place] [address] Damaris Madden I RN Social [...] Telephone Encounter - Damaris Madden RN - 03/10/2022 4:38 PM EDT RESEARCH NURSE INFORMED CONSENT NOTE [id number]: A Phase III Clinical Trial Evaluating DE-escalation of Breast RAdiation (BJORN) for Conservative Treatment of Stage I, Hormone Sensitive, HER2-Negative, Oncotype Recurrence Score < 18 Breast Cancer Date: 03/10/22 Objective of call: Call patient per request of Dr. Gallego regarding questions about clinical [id number]/ Information Provided: Protocol was reviewed with Lion Reilly including, a description of the proposed treatment, medications, and follow-up including duration of subject???s participation in study. Reviewed the two treatment arms: breast radiation therapy + endocrine therapy and NO breast radiation therapy + endocrine therapy. Randomization is 1:1. Lion Reilly states she is interested in pursuing radiationtherapy at [facility] if indicated. She has an appointment with Dr. Juarez on 03/23/22. RT treatments can be conducted in [facility], but her follow up appointments would be in [place] with Dr. Yepez. She would like to know which arm she is randomized to prior to proceeding with CT SIM. In order forthis to happen, we ideally would consent her the day prior to CT SIM to allow for time to enroll and randomize. Lion Reilly verbalizes understanding. I will discuss feasibility of this plan with the [facility] research team. Plan: 1. Possible consent on 03/22/22, followed by provider visit and CT SIM on 03/23/22. Will reach out [facility] research team to assess feasibility. documented in this encounter Plan of Treatment Upcoming Encounters Date Type Department Care Team (Late Contact Info) Description 05/08/2024 11:00 AM EDT Office Visit Hematology and Oncology at [place] [phone] Sarah Yepez MD [facility] DR HEMATOLOGY [place] [address] 01/16/2025 8:20 AM EDT Appointment Mammography/[place] [address] Mary Mary [facility] [place] [address] 01/16/2025 9:20 AM EDT Office Visit General Surgery at [place] [phone] Mary Mary [facility] [place] [address] documented as of this encounter Visit Diagnoses Not on filedocumented in this encounter Care Teams Grain Farmworker Relationship Specialty Start Date End Date Brady Muller MD [address] [address] PCP - General General Internal Medicine 12/14/21 documented as of this encounter
--- OUTSIDE RECORDS SUMMARY | 2024-03-23 16:09 | XMS_ITS | Encounter Summary ---
[place] [address] Care Team Providers Care Furniture Repairer Name Role Phone Brady Muller MD Primary Care Provider [phone] Encounter Details Date Type Department Care Team (Late st Contact Info) Description 12/18/2021 Patient Outreach Hematology [place] [address] Mira Chapman, RN Social History Tobacco Use [...] Progress Notes * Mira Chapman RN - 12/18/2021 9:44 AM EDT [facility] Nurse Navigation Patient Care Plan for the Comprehensive Breast Program(CBP) Date of call: 12/18 (also provider Lion with our social media marketing analyst's number for next week in case she has concerns at [phone]) Reason for call: contacted Lion Reilly via phone to assess for nurse navigation services after Dr. Gardner informed her that her breast biopsy results indicated she has breast cancer, and to introduce her to the CBP. Lion Reilly is a 61 y.o. 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 Lion sounds positive, though appropriately somewhat concerned, and has amazing support form her , children, grandchildren, work. Her will accompany her to appointments. She appears to be coping ok but is anxious to meet with a breast surgeon to determine a treatment plan. 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 Her school year ends on 01/06. Menopausal status: LMP at age 57. She continues to experience hot flashes. Never took HRT. MyDH is not active. Plan: Appointments for breast MRI and consultation with a breast surgeon have been scheduled. She was introduced to the CBP and told she would receive information about her diagnosis and treatment for her review (the Breast Cancer Treatment Handbook; link and access code to the [facility] Early-Stage: Invasive Breast Cancer program provided). Plan to meet with Lion on the day of her surgical oncology consultation. She understands that MICHAEL Magana, BREEZY and I are available to her for support/concerns. Addressed her questions and encouraged her to contact me with any additional questions or concerns.She has our contact information. FAMILY HISTORY Breast Cancer: PGM in her 90's who had b/l mastectomy She is not sure if her PGM had b/l breast cancer and there are no family members to ask as both of her parents are . Laterality:Right Is this a recurrence:No Family history of breast cancer:Yes Family history of ovarian cancer: No Personal history or breast cancer:No Method of detection: Mammogram Method of diagnosis: Ultrasound Core Biopsy Identified Barriers: Patient comments or concerns: She has concerns regarding insurance and finances as she has a $2,000deductible and will hit this again in January when her health insurance (through school) renews. She understands our social media marketing analyst will discuss options for assistance and can direct her to financial services to set up a payment plan. Lion states she has found payment plans in the past helpful. documented in this encounter Plan of Treatment Upcoming Encounters Date Type Department Care Team (Late st Contact Info) Description 05/08/2024 11:00 AM EDT Office Visit Hematology and Oncology at [place] [phone] Sarah Yepez MD [facility] [address] [place] [address] 01/16/2025 8:20 AM EDT Appointment Mammography/[place] [address] Mary Mary [facility] [place] [address] 01/16/2025 9:20 AM EDT Office Visit General Surgery at [place] [phone] Mary Mary [facility] [place] [address] documented as of this encounter Visit Diagnoses Not on filedocumented in this encounter Care Teams Furniture Repairer Relationship Specialty Start Date End Date Brady Muller MD [address] [place] [address] PCP - General General Internal Medicine 12/14/21 documented as of this encounter
--- OUTSIDE RECORDS SUMMARY | 2024-03-23 16:09 | XMS_ITS | Encounter Summary ---
Author Organization [facility] [place] [address] Care Team Providers Care Meter Tester Primary Name Role Phone Brady Muller MD Primary Care Provider [phone] Reason for Referral * Consultation (Routine) - Closed Specialty Diagnoses / Procedures Referred By Contac t Referred To Contact Radiation Oncology Diagnoses Malignant neoplasm of upper-inner quadrant of right breast in female, estrogen receptor positive Procedures Simulation for Radiation Therapy Planning Aliya Juarez MD [facility] [place] [address] [facility] Rad Onc Office [address] [place] [phone] Referral ID Status Reason Start Date Expiration Date V isits Requested Visits Authorized [id number] Closed Consult, Test & Treat 03/09/2022 06/06/2022 20 20 Reason for Visit * Reason Comments Radiation Consult * Consultation (Routine) - Closed Specialty Diagnoses / Procedures Referred By Contac t Referred To Contact Radiation Oncology Diagnoses Breast cancer S/P Right Partial Mastecomy, surgery 02/11 Deshawn Gallego MD [facility] [place] [address] [facility] Rad Onc Office [address] [place] [phone] Referral ID Status Reason Start Date Expiration Date Visits Re quested Visits Authorized [id number] Closed 02/03/2022 02/03/2023 1 1 Encounter Details Date Type Department Care Team (Late st Contact Info) Description 03/01/2022 10:00 AM EDT Office Visit Radiation Oncology at [address] [phone] Aliya Juarez MD [facility] [place] [address] Malignant neoplasm of upper-inner quadrant of right [...] Sign Reading Time Taken Comments Blood Pressure 130/72 03/01/2022 9:53 AM EDT Pulse 90 03/01/2022 9:53 AM EDT Temperature 36.9 ??C (98.4 ??F) 03/01/2022 9 :53 AM EDT Respiratory Rate 16 03/01/2022 9:53 AM EDT Oxygen Saturation 100% 03/01/2022 9:5 3 AM EDT Inhaled Oxygen Concentration - - Weight 70.6 kg (155 lb 9.6 oz) 03/01/20 9:53 AM EDT with shoes Height - - Body Mass Index 21.7 02/11/2022 12:17 PM EDT documented in this encounter Patient Instructions * Patient Instructions* Aliya Juarez MD - 03/01/2022 10:00 AM EDT Someone will call you to schedule CTsimulation for T., 03/09/22. documented in this encounter Progress Notes * Christina Mcgowan RN - 03/01/2022 10:00 AM EDT Rig.Deena for HPI/ROS submitted by the patient on 03/01/2022 Distress: 1 RADIATION ONCOLOGY NURSING INITIAL NURSING ASSESSMENT IDENTIFICATION: Lion Reilly is a 61 y.o. year-old female with right breast cancer. PRESENTING SYMPTOMS/CHIEF COMPLAINT: Abnormal mammogram REVIEW OF SYSTEMS: Review of Systems Constitutional: Negative for appetite change and unexpected weight change (intentional weight loss due to intentional diet changes when diagnosed). Respiratory: Negative for cough and shortness of breath. Cardiovascular: Negative for chest pain. Genitourinary: Positive for vaginal discharge (normal vaginal discharge no color/odor/changes). Negative for vaginal bleeding. IN THE PAST 12 MONTHS HAVE YOU: Fallen more than one time? No Injured yourself as result of the fall? N/A Experienced difficulty with walking/problems with balance? No Do you use any assistive devices? No Any history of collagen vascular diseases:No Any Implanted Devices/Hardware: No If yes please put alert in ARIA patient summary Prior Radiotherapy: No Prior Chemotherapy: No Prior Hormone Therapy: No LEARNING ASSESSMENT REVIEWED: Yes ADVANCED DIRECTIVE: PAIN ASSESSMENT: 0 out of 10 *eD-H Adult PCS Flow Sheet if 4 or above SOCIAL ASSESSMENT: See ED social assessment information entered. Support Systems: spouse , Reports has a huge support network Barriers to treatment: none . 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 Referrals/Interventions: interested in meeting with RD during her treatments RADIATION SPECIFIC TEACHING: [facility] Radiation Therapy and You Site specific teaching : Breast teaching to be done by nursing on day of simulation. Other: PLAN: Per Dr. Juarez * Aliya Juarez MD - 03/01/2022 10:00 AM EDT Images from the original note were not included. CC: Referred by Dr. Gallego for eval for xrt for breast ca. HPI: Lion is a 61 y/o f who presented w/R breast abnlty on screening mmg. interp 11/25/21 B screening mmg, 12/04/21 R breast US & dx'ic R mmg: Suspicious 0.8 cm spiculated mass upper posterior R breast. 12/14/21 dx'ic R mmg & R breast US: Suspicious 0.8 cm posterior R breast mass @ 1:00, 13 cm fromnipple 12/14/21 US guided core needle bx R breast. Path: IDC, ER+MO+, Her2-. 01/04/22 MRI B breast: 0.9 cm R breast mass @ 1:00, 16 cm from nipple. No adenopathy. 01/06/22 Dr. Gallego exam w/o breast mass/adenopathy. 02/11/22 NLOC R breast lumpectomy w/incision @ 12:00, specimen mmg, clip placement into cavity boundaries, local tissue rearrangement & SNB. Path: IDC, gr 2, 8 mm, RM-, 4 sentinel lymph nodes (all neg, 0/4), pT1b pN0. Subjective: Still w/raw feeling in R axilla, lessening w/time. No hand/arm swelling. ROM arms around shoulders ok. Energy level good. Past Medical History: Diagnosis Date ??? Malignant neoplasm of right breast in female, estrogen receptor positive 12/18/2021 12/14/21 bx [facility]: ER+/MO+/HER2 pending right breast IDC, high grade No lupus/scleroderma. No prior xrt. Past Surgical History: Procedure Laterality Date ??? MAMMO US BIOPSY RIGHT Right 12/14/2021 Mammo Us Biopsy Right 12/14/[address] [facility] RAD MAMMOGRAPHY ??? MAMMO US NEEDLE LOCALIZATION RIGHT Right 02/11/2022 Mammo US Needle Localization Right 02/11/[address] [facility] [place] RAD MAMMOGRAPHY ??? PRO BX/REMV, LYMPH NODE, DEEP AXILL Right 02/11/2022 BIOPSY OR EXCISION OF LYMPH NODE(S), OPEN, DEEP AXILLARY NODE(S) (WRVU 6.43) performed by Deshawn Gallego MD at [facility] MAIN OR ??? PRO INTRAOP SENTINEL LYMPH ID W/DYE INJECTION Right 02/11/2022 INTRAOPERATIVE ID (MAPPING) SENTINEL LYMPH NODE,INCLUDES INJECTION (WRVU 2.5) performed by Deshawn Gallego MD at [facility] [place] MAIN OR ??? PRO MASTECTOMY PARTIAL Right 02/11/2022 MASTECTOMY PARTIAL (WRVU 10.13) performed by Deshawn Gallego MD at [facility] [place] MAIN OR Your Medications as of March 01, 2022 10:03 AM You have not been prescribed any medications. FHx: + ca, of breast in grmo P&SHx: Never smoker Physical Exam Constitutional: General: She is not in acute distress. Comments: BP 130/72 (Patient Position: Sitting) Pulse 90 Temp 36.9 ??C (98.4 ??F) (Temporal) Resp 16 Wt 70.6 kg (155 lb 9.6 oz) Comment: with shoes SpO2 100% BMI 21.70 kg/m?? HENT: Head: Normocephalic. Eyes: General: No scleral icterus. Right eye: No discharge. Left eye: No discharge. Extraocular Movements: Extraocular movements intact. Conjunctiva/sclera: Conjunctivae normal. Pulmonary: Effort: Pulmonary effort is normal. No respiratory distress. Breath sounds: No stridor. Chest: Breasts: Right: No inverted nipple, mass, nipple discharge, skin change, tenderness, axillary adenopathy or supraclavicular adenopathy. Left: No inverted nipple, mass, nipple discharge, skin change, tenderness, axillary adenopathy or supraclavicular adenopathy. Abdominal: General: There is no distension. Palpations: Abdomen is soft. There is no mass. Tenderness: There is no abdominal tenderness. There is no guarding or rebound. Musculoskeletal: General: No swelling or tenderness. Normal range of motion. Cervical back: Normal range of motion and neck supple. No tenderness. Right lower leg: No edema. Left lower leg: No edema. Lymphadenopathy: Head: Right side of head: No submental, submandibular, preauricular, posterior auricular or occipital adenopathy. Left side of head: No submental, submandibular, preauricular, posterior auricular or occipital adenopathy. Cervical: No cervical adenopathy. Upper Body: Right upper body: No supraclavicular or axillary adenopathy. Left upper body: No supraclavicular or axillary adenopathy. Skin: General: Skin is warm and dry. Neurological: Mental Status: She is alert and oriented to person, place, and time. Coordination: Coordination normal. Gait: Gait normal. Psychiatric: Mood and Affect: Mood normal. Behavior: Behavior normal. Thought Content: Thought content normal. Judgment: Judgment normal. A: Breast ca, R, IDC, gr 2, ER+MO+, Her2-, s/p lumpectomy & SNB, pT1b pN0. P: Xrt to R breast recommended to increase likelihood of cure. Xrt would be given in 20 fxs. Possible side effects of xrt to breast discussed, w/acute/immediate side effects including: Pinkening, soreness & peeling of skin in treated area; swelling of treated breast; soreness of treated breast; cough; shortness of breath; tiredness. Acute/immediate side effects usually temporary. Late/detention side effects to breast discussed include: Treated breast may shrink, become firmer & sit higher on chest; achiness/stiffness of chest wall on treated side; rib fracture on treated side; CT after xrt may show scarring w/in small volume of lung on treated side; very small risk of ra diotherapy associated 2nd malignancy. Risk of occurrence of most of late/detention side effects usually small. Need for CTsim prior to xrt discussed. She would like to proceed w/xrt & CTsim will be scheduled. Dr. Yepez evdisha for systemic tx 03/04/22. Dr. Gallego postop check 03/10/22. Radiation casey:Wythe protocol and Whole breast w/ tangents Radiation boost:Yes Total dose of radiation: 52.56 Gy 75 mins encounter documented in this encounter Plan of Treatment Upcoming Encounters Date Type Department Care Team (Late st Contact Info) Description 05/08/2024 11:00 AM EDT Office Visit Hematology and Oncology at [place] [phone] Sarah Yepez MD [facility] [address] HEMATOLOGY [place] [address] 01/16/2025 8:20 AM EDT Appointment Mammography/[place] [phone] Mary Mary [facility] [place] [address] 01/16/2025 9:20 AM EDT Office [place] [address] Mary Mayr [facility] [place] [address] Scheduled Orders Name Type Priority Associated Diagnoses Orde r Schedule Simulation for Radiation Therapy Planning Procedures Routine Malignant neoplasm of upper-inner quadrant of right breast in female, estrogen receptor positive Ordered: 03/01/2022 documented as of this encounter Visit Diagnoses Diagnosis Malignant neoplasm of upper-inner quadrant of right breast in female, estrogen receptor positive documented in this encounter Care Teams Meter Tester Primary Relationship Specialty Start Date End Date Brady Muller MD [address] [place] [id number] PCP - General General Internal Medicine 12/14/21 documented as of this encounter
--- OUTSIDE RECORDS SUMMARY | 2024-03-23 16:09 | XMS_ITS | Encounter Summary ---
[place] [address] Care Team Providers Care Money Room Teller Name Role Phone Brady Muller MD Primary Care Provider [phone] Encounter Details Date Type Department Care Team (Latest Contact Info) Description 02/11/2022 11:00 AM EDT Hospital En[place] [phone] Deshawn Gallego MD [facility] [place] [address] Malignant neoplasm of right breast in female, [...] as of this encounter Progress Notes * Aidan Stroud DO - 02/11/2022 7:31 AM EDT Pre-procedure note for needle breast biopsies performed in radiology. Procedure date: Today Procedure type: right breast NLOC and sentinel node injection Allergies: Patient has no known allergies. Medications: No current outpatient medications on file. Anticoagulation status: none stopped on: N/A Imaging reviewed and procedural plan approved by Dr. Aidan Stroud DO documented in this encounter Plan of Treatment Upcoming Encounters Date Type Department Care Team (Late st Contact Info) Description 05/08/2024 11:00 AM EDT Office Visit Hematology and Oncology at [place] [phone] Sarah Yepez MD [facility] DR HEMATOLOGY [place] [address] 01/16/2025 8:20 AM EDT Appointment Mammography/DXA at [place] [phone] Mary Mary, [facility] [place] [address] 01/16/2025 9:20 AM EDT Office Visit General Surgery at [place] [phone] Mary Mary [facility] [place] [address] documented as of this encounter Procedures Procedure Name Priority Date/Time Associated Diagnosis Comments MAMMO US NEEDLE LOCALIZATION RIGHT Routine 02/11/2022 12:02 PM EDT Malignant neoplasm of right breast in female, estrogen receptor positive, unspecified site of breast documented in this encounter Results * Mammo US Needle Localization Right (02/11/2022 [...] approach with ultrasound guidance. A 5 cm Ofercity needle was used. Cranio-caudal and 90 degree [...] who have questions please contact the health care advocate that requested your imaging first. ? Electronically signed by: Gali Bosch MD, [facility] ([phone]), at 02/11/2022 12:12 PM Deshawn Gallego MD IMG MAMMO ORDERABLES documented in this encounter Visit Diagnoses Diagnosis Malignant neoplasm of right breast in female, estrogen receptor positive, unspecified site of breast documented in this encounter Administered Medications Inactive Administered Medications - up to 3 most recent administrations Medication Order MAR Action Action Date Dose Rate Site lidocaine (Xylocaine) 1% (10 mg/mL) injection 100 mg 100 mg (10 mL), Intradermal, ONCE, 1 dose, On Jocelyn 02/11/22 at 1130, Routine Given 02/11/2022 11:30 AM EDT 100 mg documented in this encounter Care Teams Money Room Teller Relationship Specialty Start Date End Date Brady Muller MD [address] [place] [id number] PCP - General General Internal Medicine 12/14/21 documented as of this encounter
--- OUTSIDE RECORDS SUMMARY | 2024-03-23 16:09 | XMS_ITS | Encounter Summary ---
Author Organization [facility] [place] [address] Care Team Providers Care Limousine And Hearse Upholsterer Name Role Phone Brady Muller MD Primary Care Provider [phone] Encounter Details Date Type Department Care Team (Latest Contact Info) Description 02/11/2022 11:01 AM EDT - 02/11/2022 11:16 AM EDT Hospital [place] [address] Deshawn Gallego MD [facility] GENERAL SURGERY [place] [phone] Malignant neoplasm of right breast in female, [...] EDT Office Visit Hematology [place] [phone] Sarah Yepez MD [facility] DR HEMATOLOGY [place] [address] 01/16/2025 8:20 AM EDT Appointment Mammography[place] [phone] Mary Mary [facility] [place] [address] 01/16/2025 9:20 AM EDT Office [place] [phone] Mary Mary [facility] [place] [address] documented as of this encounter Procedures Procedure Name Priority Date/Time Associated Diagnosis Comments MAMMO SPECIMEN RIGHT Routine 02/11/2022 3:00 PM EDT Malignant neoplasm of right breast in female, estrogen receptor positive, unspecified site of breast documented in this encounter Results * Mammo Specimen Right [...] who have questions please contact the health hourly caregiver that requested your imaging first. ? Electronically signed by: Gali Bosch MD, [facility] ([phone]), at 02/11/2022 3:12 PM Narrative 02/11/2022 3:12 PM EDT EXAMINATION: Specimen [...] clear Deshawn Gallego MD IMG MAMMO ORDERABLES documented in this encounter Visit Diagnoses Diagnosis Malignant neoplasm of right breast in female, estrogen receptor positive, unspecified site of breast documented in this encounter Administered Medications Inactive Administered Medications - up to 3 most recent administrations Medication Order MAR Action Action Date Dose Rate Site technetium (Tc-99m) tilmanocept (Lymphoseek) intradermal 0.5-2 mCi 0.5-2 mCi, Intradermal, ONCE, 1 dose, On Jocelyn 02/11/22 at 1230, Radiology Contrast, Routine Given 02/11/2022 11:30 AM EDT 1 mCi documented in this encounter Care Teams Limousine And Hearse Upholsterer Relationship Specialty Start Date End Date Brady Muller MD [address] [place] [id number] PCP - General General Internal Medicine 12/14/21 documented as of this encounter
--- OUTSIDE RECORDS SUMMARY | 2024-03-23 16:09 | XMS_ITS | Encounter Summary ---
Author Organization [facility] [place] [address] Care Team Providers Care J2Ee Engineer Name Role Phone Brady Muller MD Primary Care Provider [phone] Encounter Details Date Type Department Care Team (Latest Contact Info) Description 02/11/2022 11:17 AM EDT - 02/11/2022 11:59 AM EDT Hospital Encounter [place] [address] Gali Bosch MD [facility] [place] [address] Abnormal finding Discharge Disposition: Home Social History Tobacco Use [...] EDT Office Visit Hematology [place] [phone] Sarah Yepez MD [facility] DR HEMATOLOGY [place] [address] 01/16/2025 8:20 AM EDT Appointment Mammography/[place] [phone] Mary Mary [facility] [place] [address] 01/16/2025 9:20 AM EDT Office Visit [place] [phone] Mary Mary BRAND COORDINATOR [facility] [place] [address] documented as of this encounter Procedures Procedure Name Priority Date/Time Associated Diagnosis Comments MAMMO DIAGNOSTIC WITHOUT CAD RIGHT Routine 02/11/2022 12:03 PM EDT Abnormal finding documented in this encounter Results * Mammo Diagnostic Without Cad Right (02/11/2022 12:03 PM EDT) Anatomical Region Laterality Modality Breast [...] approach with ultrasound guidance. A 5 cm OurHistree needle was used. Cranio-caudal and 90 degree [...] have questions please contact the health career and guidance counselor that requested your imaging first. ? Electronically signed by: Gali Bosch MD, [facility] ([phone]), at 02/11/2022 12:12 PM Gali Bosch MD IMG MAMMO ORDERABLES documented in this encounter Visit Diagnoses Diagnosis Abnormal finding Other nonspecific abnormal finding documented in this encounter Care Teams J2Ee Engineer Relationship Specialty Start Date End Date Brady Muller MD [address] [place] [id number] PCP - General General Internal Medicine 12/14/21 documented as of this encounter
--- OUTSIDE RECORDS SUMMARY | 2024-03-23 16:09 | XMS_ITS | Encounter Summary ---
Author Organization [facility] [place] [address] Care Team Providers Care Outside Operator Name Role Phone Brady Muller MD Primary Care Provider [phone] Encounter Details Date Type Department Care Team (Late st Contact Info) Description 03/17/2022 [place]phone [place] [phone] Damaris Madden I RN Social [...] Telephone Encounter - Damaris Madden RN - 03/17/2022 3:52 PM EDT RESEARCH NURSE TELEPHONE NOTE [id number]: A Phase III Clinical Trial Evaluating DE-escalation of Breast RAdiation (BJORN) for Conservative Treatment of Stage I, Hormone Sensitive, HER2-Negative, Oncotype Recurrence Score < 18 Breast Cancer Date: 03/17/2022 Time: 3:57 PM Study Day: Pre-Screening Reason for call: Oncotype Results Spoke w/ Lion Reilly to review her oncotype results. Her RS returned at 11, which means she is potentially eligible for BR007. Lion Reilly states she would like to continue with consent and screening activities. We requested her to be scheduled for 04/05/22 for an appointment with Susy Taylor RN for consent in [facility], followed by screening assessments and labs. We will notify her once this is scheduled. If she is randomized to the RT + endocrine therapy arm, she will have her CT SIM on 04/06/22 (already scheduled). Lion Reilly states she is going to reach out to her insurance company to verify coverage while on a clinical trial. Plan: 1. Schedule Lion Reilly for visit with Brandon RN followed by labs on 04/05/22. Notify Lion Reilly once scheduled. 2. Lion Reilly to contact insurance company regarding coverage while on a clinical trial. Pt understands and agrees with plan and knows she can call the clinic with any further questions orconcerns. documented in this encounter Plan of Treatment Upcoming Encounters Date Type Department Care Team (Late st Contact Info) Description 05/08/2024 11:00 AM EDT Office Visit Hematology and Oncology at [place] [address] Sarah Yepez MD [facility] DR [place] [address] 01/16/2025 8:20 AM EDT Appointment Mammography/[place] [phone] Mary Mary [facility] [place] [address] 01/16/2025 9:20 AM EDT Office Visit General Surgery at [place] [phone] Mary Mary [facility] [place] [address] documented as of this encounter Visit Diagnoses Not on filedocumented in this encounter Care Teams Outside Operator Relationship Specialty Start Date End Date Brady Muller MD [address] [place] [id number] PCP - General General Internal Medicine 12/14/21 documented as of this encounter
--- OUTSIDE RECORDS SUMMARY | 2024-03-23 16:09 | XMS_ITS | Encounter Summary ---
[place] [address] Care Team Providers Care Product Development Specialist Name Role Phone Brady Muller MD Primary Care Provider [phone] Encounter Details Date Type Department Care Team (Latest Contact Info) Description 01/04/2022 12:30 PM EDT Laboratory Appointment Lab [address] [place] [address] Malignant neoplasm of right breast in female, [...] EDT Office Visit Hematology [place] [address] Sarah Yepez MD [facility] DR HEMATOLOGY [place] [address] 01/16/2025 8:20 AM EDT Appointment Mammography/[place] [phone] Mary Mary APRN [facility] [place] [address] 01/16/2025 9:20 AM EDT Office [place] [phone] Mary Mary, TYLER [facility] [place] [address] documented as of this encounter Procedures Procedure Name Priority Date/Time Associated Diagnosis Comments HEMOGRAM Routine 01/04/2022 12:30 PM EDT Malignant neoplasm of right breast in female, estrogen receptor positive, unspecified site of breast DIFFERENTIAL, AUTOMATED Routine 01/04/2022 12:30 PM EDT Malignant neoplasm of right breast in female, estrogen receptor positive, unspecified site of breast HC CBC,PLT & AUTO DIFF Routine 01/04/2022 12:30 PM EDT Malignant neoplasm of right breast in female, estrogen receptor positive, unspecified site of breast HC VENIPUNCTURE Routine 01/04/2022 12:30 PM EDT Malignant neoplasm of right breast in female, estrogen receptor positive, unspecified site of breast documented in this encounter Results * Differential, Automated (01/04/2022 12:30 PM EDT) Neutrophil % 50.6 % [facility] Neutrophil Absolute 2.93 1.70 - 6.10 x10(3)/[facility] Lymph % 37.2 % [facility] Lymphocytes Abs 2.2 0.9 - 3.2 x10(3)/[facility] Monocyte % 9.3 % [facility] Monocyte Abs 0.5 0.3 - 0.9 x10(3)/[facility] Eos % 1.9 % [facility] Eosinophils Abs 0.1 0.0 - 0.4 x10(3)/[facility] Basophil % 0.7 % [facility] Baso Absolute 0.0 0.0 - 0.1 x10(3)/[facility] Immature Gran % 0.30 % [facility] Comment: Immature granulocytes(IG's)percentage and absolute count will include metamyelocytes, myelocytes, and promyelocytes. Blood smears from CBCs yielding IG's will be scanned manually for concordance. If this scan disagrees with the automated IG or if promyelocytes are noted, a manual differential will be performed. Immature Gran Absolute 0.02 0.00 - 0.04 x10(3)/[facility] Blood 01/04/2022 12:3 0 PM EDT 01/04/2022 12:40 PM EDT Narrative Resulting Agency Comment Spec In Lab Enriqueta Reid MD HEMATOLOGY ORDERABL ES [facility] [place] [address] * (ABNORMAL) Hemogram (01/04/2022 12:30 PM EDT) White Blood Cell 5.8 4.0 - 9.5 x10(3)/[facility] Red Blood Cell 4.47 4.00 - 5.21 x10(6)/[facility] Hemoglobin 14.6 11.7 - 15.5 g/dL [facility] Hematocrit 43.8 35.7 - 45.8 % [facility] Mean Cell Volume 98.0(H) 82.6 - 94.4 fL [facility] Mean Cell Hemoglobin 32.7(H) 27.1 - 32.0 pg [facility] Mean Cell Hemoglobin Concentration 33.3 31.7 - 35.0 g/dL [facility] Platelet 211 145 - 357 x10(3)/mc L [facility] RDW Standard Deviation 45.8 37.0 - 46.0 fL [facility] RDW coefficient of variation 12.7 11.5 - 14.1 % [facility] Mean Platelet Volume 10.4 7.6 - 12.9 fL [facility] NRBC% auto 0.0 % [facility] NRBC Absolute 0.000 0.000 - 0.000 x10(3)/mc L [facility] Blood 01/04/2022 12:3 0 PM EDT 01/04/2022 12:40 PM EDT Narrative Resulting Agency Comment Spec In Lab Enriqueta Reid MD HEMATOLOGY ORDERABL ES [facility] [place] [id number] * (ABNORMAL) Comprehensive metabolic panel (non-fasting) (01/04/2022 12:30 PM EDT) Glucose 120 65 - 199 mg/dL [facility] Comment:Diabetes: >=200 mg/d L plus symptoms Blood Urea Nitrogen 19(H) 8 - 18 mg/dL [facility] Creatinine 0.90 0.70 - 1.20 mg/dL [facility] Sodium 141 135 - 145 mmol/L [facility] Potassium 3.9 3.5 - 5.0 mmol/L [facility] Comment: Please note: ??Patients with WBC >100,000 may have falsely elevated Potassium levels. ??For accurate Potassium quantification in these patients send serum separator tube (gold top) for subsequent determinations. ??Contact the Clinical Chemistry Laboratory if there are any questions. Chloride 104 98 - 107 mmol/L [facility] Carbon Dioxide 27 22 - 31 mmol/L [facility] Anion Gap 10 5 - 15 mmol/L [facility] Calcium 9.5 8.5 - 10.5 mg/dL [facility] Protein, Total 6.9 6.1 - 8.0 g/dL [facility] Albumin 4.6 3.2 - 5.2 g/dL [facility] Aspartate Aminotransferase 23 0 - 30 unit/L [facility] Alanine Aminotransferase 16 0 - 30 unit/L [facility] Alkaline Phosphatase 71 35 - 105 unit/L [facility] Bilirubin, Total 0.5 0.2 - 1.3 mg/dL [facility] Est Glomerular Filtration Rate 69 >=60 mL/min/1. 73 m?? [facility] Comment: This patient? s estimated [...] Lab Enriqueta Reid MD CHEMISTRY ORDERABLE S [facility] [place] [address] documented in this encounter Visit Diagnoses Diagnosis Malignant neoplasm of right breast in female, estrogen receptor positive, unspecified site of breast documented in this encounter Care Teams Product Development Specialist Relationship Specialty Start Date End Date Brady Muller MD [address] [place] [address] PCP - General General Internal Medicine 12/14/21 documented as of this encounter
--- OUTSIDE RECORDS SUMMARY | 2024-03-23 16:09 | XMS_ITS | Encounter Summary ---
Author Organization [facility] [place] [address] Care Team Providers Care Bottom Liner Name Role Phone Brady Muller MD Primary Care Provider [phone] Encounter Details Date Type Department Care Team (Latest Contact Info) Description 02/22/2022 12:05 PM EDT - 02/22/2022 11:59 PM EDT Hospital [place] [address] Delmi Gardner MD [facility] [place] [address] Discharge Disposition: Home Social History Tobacco Use [...] EDT Office Visit Hematology and Oncology at [place] [phone] Sarah Yepez MD [facility] [address] [place] [address] 01/16/2025 8:20 AM EDT Appointment Mammography/DXA at [place] [phone] Mary Mary [facility] [address] 01/16/2025 9:20 AM EDT Office Visit General Surgery at [place] [phone] Mary Mary [facility] [place] [address] documented as of this encounter Procedures Procedure Name Priority Date/Time Associated Diagnosis Comments MAMMO BREAST PATHOLOGY LUMPECTOMY Routine 02/22/2022 12:05 PM EDT documented in this encounter Results * MAMMO BREAST PATHOLOGY LUMPECTOMY (02/22/2022 12:05 PM EDT) Narrative Dicom, Auditing User - 02/22/2022 12:05 PM EDT This exam is auto-finalizing. No interpretation was done. Delmi Gardner MD IMG MAMMO ORDERABL ES documented in this encounter Visit Diagnoses Not on filedocumented in this encounter Care Teams Bottom Liner Relationship Specialty Start Date End Date Brady Muller MD [address] [place] [id number] PCP - General General Internal Medicine 12/14/21 documented as of this encounter
--- OUTSIDE RECORDS SUMMARY | 2024-03-23 16:09 | XMS_ITS | Encounter Summary ---
Author Organization [facility] [place] [address] Care Team Providers Care Director Of Rotc Name Role Phone Brady Muller MD Primary Care Provider [phone] Encounter Details Date Type Department Care Team (Late st Contact Info) Description 04/05/2022 11:00 AM EDT Office Visit Hematology/Oncology at [address] [address] Susy Israel, RN Malignant neoplasm of upper-outer quadrant of [...] as of this encounter Progress Notes * Susy Israel RN - 04/05/2022 11:00 AM EDT Reasearch Nurse Note [place], [place] Documentation of Informed Consent to Participate in Clinical Trial Study Number: BR007 Description: Testing the usual treatment of radiation therapy and hormonal therapy to hormonal therapy alone for low-risk ,early stage breast cancer. Patient was seen at [facility] and was offered the opportunity to participate in the study BR007. She states she has had the opportunity to read the consent in detail with appointments at [facility] [place] [place] and is ready to sign it today. 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 KPS 100% / ECOG 0 . The protocol was reviewed with patient including description of study purpose, potential risks, side effects and uncertain benefits, voluntary nature of participation, and requirements of participation with randomization with each arm of this study ( she may or may not get radiation with the hormone treatment and it is a 50/50 chance) Financial considerations were discussed per protocol. Specifically, there is no financial compensation provided for participation. Discussed confidentiality of patient???s private health information as specified in consent form. Patient was informed that she may discontinue study involvement at any time; informed that declining to participate or discontinuing study treatment will not compromise his/her access to treatment options or care at this institution. She was given the written consent form to read and review. Patient states she was given adequate time to review all information, and to ask questions and review concerns, all of which were answered to her satisfaction. Patient verbalized understanding of this protocol and what is meant by randomization described in the trial. She consented for treatment on study BR007 Consent protocol version 09/26/2020 form ([facility] approval date 07/31/2021) was signed and dated by patient and this author. Written informed consent was obtained prior to any study procedures being conducted. A copy of the signed consent form was given to patient. Original signed IC form was sent to ELVIN Kan via [facility] mail and also Emailed to her. Patient was provided a copy of this author business card and instructed to call clinic or provider with any questions or concerns regarding the research study. Patient verbalized understanding of these instructions. documented in this encounter Plan of Treatment Upcoming Encounters Date Type Department Care Team (Late st Contact Info) Description 05/08/2024 11:00 AM EDT Office Visit Hematology [place] [address] Sarah Yepez MD [facility] DR HEMATOLOGY [place] [address] 01/16/2025 8:20 AM EDT Appointment Mammography/[place] [address] Mary Mary [facility] [place] [address] 01/16/2025 9:20 AM EDT Office Visit General Surgery at [place] [address] Mary Mary [facility] [place] [address] documented as of this encounter Visit Diagnoses Diagnosis Malignant neoplasm of upper-outer quadrant of right breast in female, estrogen receptor positive documented in this encounter Care Teams Director Of Rotc Relationship Specialty Start Date End Date Brady Muller MD [address] [place] [address] PCP - General General Internal Medicine 12/14/21 documented as of this encounter
--- OUTSIDE RECORDS SUMMARY | 2024-03-23 16:09 | XMS_ITS | Encounter Summary ---
[place] [address] Care Team Providers Care Customer Service Trainer Name Role Phone Brady Muller MD Primary Care Provider [phone] Encounter Details Date Type Department Care Team (Late st Contact Info) Description 12/16/2021 Notes Only Hematology [place] [phone] Yudelka Blackwood Social History Tobacco Use Types Packs/Day Years [...] as of this encounter Progress Notes * Yudelka Blackwood - 12/16/2021 9:08 AM EDT New Breast Cancer Referral Lion Danielle Tommie [id number] Biopsy Location [facility] Biopsy Date:12.14.2021 Date of referral:12.16.2021 [x]Packet sent [x]Patient notified of appointments Diagnoses: 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, modified SBR score = 8 Receptors:ER/VA + Her2 Tumor size:0.8cm Scans: MRI Lab:CBC,CMP Surgeon:[employer]: Date of Surgery: 02.11.2022 Med/Onc: Marleni Rad/Onc:Ann Physical Therapy: Videos [x] Early Stage [] DCIS [x] Adjuvant [] Recon Outside Records: []Path slides [] Images [] Clinic notes [] Image review ordered Neoadjuvant []Yes []No documented in this encounter Plan of Treatment Upcoming Encounters Date Type Department Care Team (Late st Contact Info) Description 05/08/2024 11:00 AM EDT Office Visit [place] [address] Sarah Yepez MD [facility] [place] [address] 01/16/2025 8:20 AM EDT Appointment Mammography/[place] [address] Mary Mary APRN [facility] [place] [address] 01/16/2025 9:20 AM EDT Office [place] [address] Mary Mary APRN [facility] [place] [address] documented as of this encounter Visit Diagnoses Not on filedocumented in this encounter Care Teams Customer Service Trainer Relationship Specialty Start Date End Date Brady Muller MD [address] [place] [address] PCP - General General Internal Medicine 12/14/21 documented as of this encounter
--- OUTSIDE RECORDS SUMMARY | 2024-03-23 16:09 | XMS_ITS | Encounter Summary ---
[place] [address] Care Team Providers Care Medical Technologist Generalist Name Role Phone Brady Muller MD Primary Care Provider [phone] Encounter Details Date Type Department Care Team (Latest Contact Info) Description 12/14/2021 12:53 PM EDT Hospital [place] [address] Delmi Gardner MD [facility] [place] [place] [address] Abnormal finding on breast imaging Discharge Disposition: Home Social History Tobacco Use [...] EDT Office Visit Hematology [place] [phone] Sarah Yepez MD [facility] [place] [address] 01/16/2025 8:20 AM EDT Appointment Mammography/[place] [phone] Mary Mary APRN [facility] [place] [address] 01/16/2025 9:20 AM EDT Office [place] [address] Mary Mary APRN [facility] [place] [address] documented as of this encounter Procedures Procedure Name Priority Date/Time Associated Diagnosis Comments MAMMO BREAST US LIMITED RIGHT Routine 12/14/2021 1:11 PM EDT Abnormal finding on breast imaging documented in this encounter Results * US Breast Limited Right (12/14/2021 1:11 PM EDT) Anatomical Region Laterality Modality Breast Right Mammography Impressions 12/14/2021 1:51 PM EDT Suspicious 0.8 cm mass right breast 1:00 radian 13 cm from the nipple for which ultrasound-guided core biopsy is recommended. This is performed and dictated separately on the day of the patient's visit. BI-RADS Category 4: Suspicious Finding - Biopsy Should Be Considered Thank you for letting us participate in the care of this patient. ??If you are a health care provider and have any questions regarding this report, please contact the number below. ??For patients who have questions please contact the health respiratory care faculty that requested your imaging first. ? Electronically signed by: Delmi Gardner MD, [facility] ([phone]), at 12/14/2021 1:51 PM Narrative 12/14/2021 1:51 PM EDT EXAMINATION: US BREAST LIMITED RIGHT, MAMMO DIAGNOSTIC CAD AND LUC RIGHT CLINICAL HISTORY: abnormal mammo TECHNIQUE: MLO, exaggerated medial CC and spot tangential views were obtained of the right breast. 2-D direct digital capture, 3-D tomosynthesis and computer aided detection (CAD) were used.. Directed ultrasound was then performed of the right upper inner quadrant. COMPARISON: This study was compared with prior images. FINDINGS: The breast is heterogeneously dense, which may obscure small masses. There is a persistent 0.8 cm mass now visualized in both views at the far superior posterior slightly inner aspect of the right breast. This measures 0.8 cm and is 15 cm from the nipple. Directed ultrasound of the right breast depicts a 0.8 cm irregular mass with mixed posterior features at the right breast 1:00 radian 13 cm from the nipple sonographically. The patient also notes that this is palpable. Delmi Gardner MD IMG MAMMO ORDERABL ES documented in this encounter Visit Diagnoses Diagnosis Abnormal finding on breast imaging Other (abnormal) findings on radiological examination of breast documented in this encounter Care Teams Medical Technologist Generalist Relationship Specialty Start Date End Date Brady Muller MD [address] [address] PCP - General General Internal Medicine 12/14/21 documented as of this encounter
--- OUTSIDE RECORDS SUMMARY | 2024-03-23 16:09 | XMS_ITS | Encounter Summary ---
Author Organization [facility] [place] [address] Care Team Providers Care Network Communications Engineer Name Role Phone Brady Muller MD Primary Care Provider [phone] Reason for Visit * Reason Onset Date Comments Medical Care Coordination 04/09/2022 CINDY Block ch Encounter Details Date Type Department Care Team (Late st Contact Info) Description 04/09/2022 Telephone Hematology [place] [phone] Barbi Gramajo, RN Medical Care Coordination (AI Elizabeth) Social History Tobacco Use Types Packs/Day Years [...] encounter Miscellaneous Notes * Telephone Encounter - Barbi Gramajo RN - 04/09/2022 7:37 AM EDT ----- Message from Sarah Yepez MD sent at 04/08/2022 5:09 PM EDT ----- Regarding: anastrazole teaching Hi. She is going to start on anastrazole. I did some rudimentary teaching but it would be good for her to have formal teaching from you. Call placed to patient and spoke to Lion. Lion states that she Started 04/09/22. When she went through Menopause had low grade nausea, and hot flashes. In December 2021 she gave up dairy, processes sugar and gluten and this has helped tremendously with side effects. She expresses hope that these changes will also help with side effects from the anastrozole. She is tolerating well. Patient is scheduled for base line Dexa scan 05/07/22 Patient verbalizes understanding to call with questions and concerns. Reviewed common side effects per [employer] as follows: Adverse Reactions The following adverse drug reactions and incidences are derived from product labeling unless otherwise specified. >10%: Dermatologic: Skin rash (6% to 11%) Endocrine & metabolic: Hot flash (12% to 36%) Gastrointestinal: Gastrointestinal distress (29% to 34%), nausea (11% to 19%), vomiting (<=13%) Nervous system: Depression (5% to 13%), fatigue (<=19%), headache (9% to 13%), mood disorder (19%), pain (11% to 17%) Neuromuscular & skeletal: Arthralgia (15%; literature suggests incidence as high as 36%) arthritis (17%)?? osteoporosis (11%; literature suggests incidence as high as 20% in patients with preexisting osteopenia after 3- to 6-years of anastrazole) documented in this encounter Plan of Treatment Upcoming Encounters Date Type Department Care Team (Late st Contact Info) Description 05/08/2024 11:00 AM EDT Office Visit Hematology and Oncology at [place] [phone] Sarah Yepez MD [facility] [address] [place] [address] 01/16/2025 8:20 AM EDT Appointment Mammography/DXA at [place] [phone] Mary Mary [facility] [place] [address] 01/16/2025 9:20 AM EDT Office Visit General Surgery at [place] [phone] Mary Mary [facility] [place] [address] documented as of this encounter Visit Diagnoses Not on filedocumented in this encounter Care Teams Network Communications Engineer Relationship Specialty Start Date End Date Brady Muller MD [address] [place] [id number] PCP - General General Internal Medicine 12/14/21 documented as of this encounter
--- OUTSIDE RECORDS SUMMARY | 2024-03-23 16:09 | XMS_ITS | Encounter Summary ---
Author Organization [facility] [place] [address] Care Team Providers Care Heel Finisher Name Role Phone Brady Muller MD Primary Care Provider [phone] Encounter Details Date Type Department Care Team (Late st Contact Info) Description 03/11/2022 Telephone [place] [address] Damaris Madden I RN Social [...] place to sleep or slept in a fdc (including now)? No 03/04/2022 Sex and Gender Information Value Date Recorded Sex Assigned at Not on file Gender Identity Not on file Sexual Orientation Not on file documented as of this encounter Miscellaneous Notes * Telephone Encounter - Damaris Madden I RN - 03/11/2022 1:07 PM EDT RESEARCH NURSE TELEPHONE NOTE NRG-BR007: A Phase III Clinical Trial Evaluating DE-escalation of Breast RAdiation (BJORN) for Conservative Treatment of Stage I, Hormone Sensitive, HER2-Negative, Oncotype Recurrence Score < 18 Breast Cancer Date: 03/11/2022 Time: 1:07 PM Reason for call: Follow up interest in BR007 & scheduling Spoke w/ Lion Reilly who states she is still interested in scheduling for consent/screening for clinical trial BR007. She would like to have randomization results prior to completing CT SIM. Inorder to complete this, we would have her sign consent and complete eligibility the day prior to the scheduled CT SIM. Per Dr Juarez the following days are available: 03/15 & 03/16 04/05 &02/03 I educated Lion Reilly that we are still waiting on the oncotype results to assess eligibility and they may not be back by 03/15. Lion Reilly states she would like to proceed with scheduling for 04/05 and 04/06. She was made aware that she would have to repeat labs, as her CBC would be outof window. Lion Reilly states she does not have a copy of the consent. I will send a copy of the consentvia e-mail for her to review. E-mail in chart confirmed. Plan: 1. Schedule RN visit on 04/05/22 to sign consent and proceed with screening activities. 2. Schedule CT SIM on 04/06/22. 3. Lion Reilly to review consent and contact this RN with any questions. Pt understands and agrees with plan and knows she can call the clinic with any further questions orconcerns. documented in this encounter Plan of Treatment Upcoming Encounters Date Type Department Care Team (Late st Contact Info) Description 05/08/2024 11:00 AM EDT Office Visit Hematology and Oncology at [place] [phone] Sarah Yepez MD [facility] [address] [place] [address] 01/16/2025 8:20 AM EDT Appointment Mammography/[place] [address] Mary Mary [facility] [place] [address] 01/16/2025 9:20 AM EDT Office Visit General Surgery at [place] [phone] Mary Mary [facility] [place] [address] documented as of this encounter Visit Diagnoses Not on filedocumented in this encounter Care Teams Heel Finisher Relationship Specialty Start Date End Date Brady Muller MD [address] [place] [id number] PCP - General General Internal Medicine 12/14/21 documented as of this encounter
--- OUTSIDE RECORDS SUMMARY | 2024-03-23 16:09 | XMS_ITS | Encounter Summary ---
[place] [address] Care Team Providers Care Plow Mechanic Name Role Phone Brady Muller MD Primary Care Provider [phone] Encounter Details Date Type Department Care Team (Late st Contact Info) Description 01/06/2022 Patient Outreach Hematology [place] [phone] Mira Chapman, RN Social History Tobacco Use [...] Progress Notes * Mira Chapman RN - 01/06/2022 11:33 AM EDT Comprehensive Breast Program (CBP) Nurse Navigator Note Lion Reilly is a 61 y.o. female with right breast cancer. I met with the patient and her , Ziggy, after her surgical oncology consultation. Lion has some financial concerns (OOP an deductibles will fall in two separate calendar years for her insurance). Will meet with our social service liaison today. She is disappointed she may have to cancel her trip to [place] this summer to see her children and grandchild. SPECIFIC TEACHIN. Breast Cancer Treatment Handbook (Kay Briseno, 2017) was sent via mail. 2. Information from our Shared Decision-Marking Program on Early-Stage Breast Cancer previously provided. 3. She understands she will meet with a medical oncologist and a radiation oncologist (prefers [facility]) after surgery. 4. Contact phone number for questions or concerns in the immediate post- operative period. 5. Comprehensive Breast Program Binder provided. 6. Post Breast Surgery Exercises handout created by physical therapists at [facility] to begin after partial mastectomy and continue until she is back to her baseline. 7. Breast Cancer Treatment Process care map provided and reviewed. 8. Things to Consider...What I Wish I Knew advice from breast cancer patients handout provided. 9. Contact information for the General Surgery Clinic Nurses was given and the Doctor customer contact specialist system explained. Fifteen minutes was spent in education and providing support. She verbalized understanding of the plan of care and states all her questions were answered. Lion has our contact information. She will schedule surgery on way out (in 4L) today. Pre-op MRI: Yes Abnormalities detected No (other than index lesion) Referral to familial counseling: No documented in this encounter Plan of Treatment Upcoming Encounters Date Type Department Care Team (Late st Contact Info) Description 05/08/2024 11:00 AM EDT Office Visit [place]ematology [place] [address] Sarah Yepez MD [facility] HEMATOLOGY [place] [address] 01/16/2025 8:20 AM EDT Appointment Mammography/[place] [phone] Mary Mayr APRN [facility] [place] [address] 01/16/2025 9:20 AM EDT Office [place] [address] Mary Mary APRN [facility] [place] [address] documented as of this encounter Visit Diagnoses Not on filedocumented in this encounter Care Teams Plow Mechanic Relationship Specialty Start Date End Date Brady Muller MD [address] [place] [address] PCP - General General Internal Medicine 12/14/21 documented as of this encounter
--- OUTSIDE RECORDS SUMMARY | 2024-03-23 16:10 | XMS_ITS | Encounter Summary ---
Author Organization [facility] Address [address] [place] [address] Care Team Providers Care Health Support Specialist Name Role Phone Unknown, Provider Primary Care Provider Encounter Details Date Type Department Care Team (Late st Contact Info) Description 06/10/2021 Lab Requisition [facility] Pathology & Laboratory Medicine - [address] [address] Outr Resulting Lab, Provider Social History Tobacco Use Types Packs/Day Years Used Date Smoking Tobacco: Never Assessed Sex and Gender Information Value Date Recorded Sex Assigned at Not on file Gender Identity Not on file Sexual Orientation Not on file documented as of this encounter Plan of Treatment Not on file documented as of this encounter Procedures Procedure Name Priority Date/Time Associated Diagnosis Comments ZZCOVID-19 TEST [facility] PCR Today 06/09/2021 9:30 EST COVID-19 TESTING Routine 06/09/2021 9:30 EST documented in this encounter Results * COVID-19 TEST [facility] PCR (06/09/2021 9:30 EST) Swab 06/09/2021 9:30 EST 06/10/2021 16:48 EST Provider Outr Resulting Lab MICROBIOLOGY - GENERAL ORDERABLES [facility] [address] [place] [address] * COVID-19 TESTING (06/09/2021 9:30 EST) COVID-19 rt-PCR Result Negative Negative 06/11/2021 10:09 [facility] Comment: This test has not been FDA cleared or approved. This test has been authorized by FDA under an EUA for use by authorized laboratories. This test has been authorized only for detection of nucleic acid from 2019-nCoV, not for any other viruses or pathogens. This test is only authorized for the duration of the declaration that circumstances exist justifying the authorization of emergency use of in vitro diagnostic tests for detection and/or diagnosis of 2019-nCoV under section 564(b)(1) of Act, 21 U.S.C ?? 360bbb-3(b) (1), unless the authorization is terminated or revoked sooner. Negative results do not preclude 2019-nCoV infection and should not be used as the sole basis for treatment or other patient management decisions. Negative results must be combined with clinical observations, patient history, and epidemiological information. Testing was performed using the fercho SARS-CoV-2 assay ([employer] on the Fercho 6800 System Performing Lab Fercho 6800 [facility] 06/11/2021 10:09 EST [facility] Swab 06/09/2021 9:30 EST 06/10/2021 16:48 EST Provider Outr Resulting Lab MICROBIOLOGY - GENERAL ORDERABLES [facility] [address] [place] [address] documented in this encounter Visit Diagnoses Not on filedocumented in this encounter Care Teams Health Support Specialist Relationship Specialty Start Date End Date Unknown, Provider, PCP - General 09/12/12 documented as of this encounter
--- OUTSIDE RECORDS SUMMARY | 2024-03-23 16:10 | XMS_ITS | Encounter Summary ---
[place] [address] Care Team Providers Care Video Game Developer Name Role Phone Keith Lim DO Primary Care Provider [phone] Encounter Details Date Type Department Care Team (Late st Contact Info) Description 12/04/2021 4:00 PM EDT Ancillary Procedure [place] [phone] Keith Lim DO [address] [place] [address] Social History Tobacco Use Types Packs/Day Years [...] EDT Office Visit Hematology [place] [phone] Sarah Yepez MD [facility] DR [place] [address] 01/16/2025 8:20 AM EDT Appointment Mammography/[place] [phone] Mary Mary APRN [facility] [place] [address] 01/16/2025 9:20 AM EDT Office [place] [address] Mary Mary APRN [facility] [place] [address] documented as of this encounter Procedures Procedure Name Priority Date/Time Associated Diagnosis Comments FILM LIBRARY STORAGE ONLY MAMMO Routine 12/04/2021 3:57 PM EDT documented in this encounter Results * Film Library- Storage Only Mammo (12/04/2021 3:57 PM EDT) Narrative [facility] - 12/04/2021 3:57 PM EDT This exam is auto-finalizing. It's purpose is for storage only. Keith Lim DO G FILM LIBRARY ORD ERABLES [place], [place] documented in this encounter Visit Diagnoses Not on filedocumented in this encounter Care Teams Video Game Developer Relationship Specialty Start Date End Date Keith Lim DO [address] [place] [address] PCP - General 06/16/10 12/13/21 documented as of this encounter
--- OUTSIDE RECORDS SUMMARY | 2024-03-23 16:10 | XMS_ITS | Encounter Summary ---
[place] [address] Care Team Providers Care Centrifugal Spinner Name Role Phone Brady Muller MD Primary Care Provider [phone] Reason for Visit * (Routine) - Closed Specialty Diagnoses / Procedures Referred By Contkings menon Referred To Contact Radiology Diagnoses Breast nodule Procedures Request for 2nd read Mammo Keith Lim DO [address] [place] [address] Referral ID Status Reason Start Date Expiration Date Visits Re quested Visits Authorized [id number] Closed 12/07/2021 12/07/2022 1 1 Encounter Details Date Type Department Care Team (Late st Contact Info) Description 12/07/2021 11:10 AM EDT Ancillary Procedure [place] [phone] Keith Lim DO [address] [place] [address] Breast nodule Social History Tobacco Use Types Packs/Day Years [...] EDT Office Visit Hematology [place] [phone] Sarah Yepez MD [facility] DR HEMATOLOGY [place] [address] 01/16/2025 8:20 AM EDT Appointment Mammography/DXA at [place] [phone] Mary Mary, [facility] GENERAL SURGERY [place] [phone] 01/16/2025 9:20 AM EDT Office Visit General Surgery at [place] [phone] Mary Mary BOAT RIDE OPERATOR [facility] GENERAL SURGERY [place], [place] [phone] documented as of this encounter Procedures Procedure Name Priority Date/Time Associated Diagnosis Comments REQUEST FOR 2ND READ MAMMO Routine 12/07/2021 11:08 AM EDT Breast nodule documented in this encounter Results * Request for 2nd read Mammo (12/07/2021 11:08 AM EDT) Anatomical Region Laterality Modality SO Impressions 12/07/2021 12:26 PM EDT Suspicious 0.8 cm spiculated mass in the right upper posterior breast. Advise exaggerated craniocaudal imaging medially to identify this lesion mammographically prior to core biopsy. RECOMMENDATION: Repeat right craniocaudal view to include upper inner superior tissues. Repeat directed ultrasound right breast and recommend ultrasound-guided core biopsy. BI-RADS Category 5: Highly Suggestive of Malignancy - Appropriate Action Should Be Taken Please note: The interpretation of the [facility] Breast Imaging Radiologist subspecialist may differ from the original radiologist's interpretation. This is usually not due to a deficiency of the original interpreting radiologist, rather due to the greater skill level afforded by sub-specialization in the field and/or reasonable variations in interpretations. If you have a concern regarding the D-H interpretation you may contact the [facility] Breast Pipe Line Gauger Office at . Thank you for letting us participate in the care of this patient. ??If you are a health care provider and have any questions regarding this report, please contact the number below. ??For patients who have questions please contact the health companion caregiver that requested your imaging first. ? Narrative 12/07/2021 12:26 PM EDT INTERPRETATION OF OUTSIDE BREAST IMAGING I have been asked to consult on this patient by Dr. Keith Hair because he/she believes a review of this study may change or alter the care of this patient. STUDIES FROM: [facility] DATES: 11/25/2021, 12/04/2021 CLINICAL HISTORY: R breast solitary nodule 12 o'clock; CAT 4; ? More Imaging, ? BX; Sending Institution [facility]; Date of exam 20211204; I believe a reinterpretation of this exam may alter care of Patient. Yes; R breast solitary nodule 12 o'clock; CAT 4; ? More Imaging, ? BX. ?? COMPARISONS: 10/05/2012 FINDINGS: CC and MLO views were obtained of each breast in standard 2-D as well as digital breast tomosynthesis imaging. Directed ultrasound of the right breast performed. Please note: Breast ultrasound is burglar alarm operator dependent. Complete assessment of the breast tissue is not possible through static images or cine loops. Because breast ultrasound is a dynamic process the interpretive value of outside images is limited. Standard images demonstrate in a single view only a highly suspicious 0.8 cm spiculated mass in the right upper posterior breast. This is not identified, however, mammographically in the craniocaudal projection but is believed to reside in the upper inner quadrant. The left breast is unremarkable. Ultrasound images were obtained which demonstrates a hypoechoic lobulated mass at the 12:00 radian 5 cm from the nipple. Procedure Note Delmi Gardner MD - 12/07/2021 INTERPRETATION OF OUTSIDE BREAST IMAGING I have been asked to consult on this patient by Dr. Keith Hair becausehe/she believes a review of this study may change or alter the care of thispatient. STUDIES FROM: [facility] DATES: 11/25/2021, 12/04/2021 CLINICAL HISTORY: R breast solitary nodule 12 o'clock; CAT 4; ? MoreImaging, ? BX; Sending Institution [facility]; Date of exam 20211204; I believe a reinterpretation of this exam may alter care of Patient. Yes; R breastsolitary nodule 12 o'clock; CAT 4; ? More Imaging, ? BX. COMPARISONS: 10/05/2012 FINDINGS: CC and MLO views were obtained of each breast in standard 2-D as well asdigital breast tomosynthesis imaging. Directed ultrasound of the right breastperformed. Please note: Breast ultrasound is burglar alarm operator dependent. Complete assessmentof the breast tissue is not possible through static images or cine loops.Because breast ultrasound is a dynamic process the interpretive value of outsideimages is limited. Standard images demonstrate in a single view only a highly suspicious 0.8cm spiculated mass in the right upper posterior breast. This is notidentified, however, mammographically in the craniocaudal projection but is believedto reside in the upper inner quadrant. The left breast is unremarkable. Ultrasound images were obtained which demonstrates a hypoechoic lobulatedmass at the 12:00 radian 5 cm from the nipple. IMPRESSION Suspicious 0.8 cm spiculated mass in the right upper posterior breast.Advise exaggerated craniocaudal imaging medially to identify this lesion mammographically prior to core biopsy. RECOMMENDATION: Repeat right craniocaudal view to include upper inner superior tissues.Repeat directed ultrasound right breast and recommend ultrasound-guided corebiopsy. BI-RADS Category 5: Highly Suggestive of Malignancy - Appropriate ActionShould Be Taken Please note: The interpretation of the [facility] BreastImaging Radiologist subspecialist may differ from the original radiologist's interpretation. This is usually not due to a deficiency of the original interpreting radiologist, rather due to the greater skill level affordedby sub-specialization in the field and/or reasonable variations ininterpretations. If you have a concern regarding the D-H interpretation you may [facility] at . Thank you for letting us participate in the care of this patient. If youare a health care provider and have any questions regarding this report,please contact the number below. For patients who have questions please contactthe health companion caregiver that requested your imaging first. Keith Lim DO IMG OUTSIDE INTERPRE TATION ORDERABLES documented in this encounter Visit Diagnoses Diagnosis Breast nodule Other (abnormal) findings on radiological examination of breast documented in this encounter Care Teams Centrifugal Spinner Relationship Specialty Start Date End Date Brady Muller MD [address] [place] [id number] PCP - General General Internal Medicine 12/14/21 documented as of this encounter
--- OUTSIDE RECORDS SUMMARY | 2024-03-23 16:10 | XMS_ITS | Encounter Summary ---
[place] [address] Care Team Providers Care Instructor Looping Name Role Phone Amanuelrosa iselaKeith DO Primary Care Provider [phone] Encounter Details Date Type Department Care Team (Late st Contact Info) Description 12/04/2021 Telephone Hematology [place] [phone] Yudelka Blackwood Social History Tobacco Use Types Packs/Day Years Used Date Smoking Tobacco: Never Assessed Sex and Gender Information Value Date Recorded Sex Assigned at Not on file Gender Identity Not on file Sexual Orientation Not on file documented as of this encounter Miscellaneous Notes * Telephone Encounter - Yudelka Blackwood - 12/04/2021 2:22 PM EDT Patient Name: Lion Reilly Patient : [id number] Attn: [facility] Image Library From: [facility] - [phone] Fed-Ex# [id number] - Please overnight [x] Urgent [x] For Review [] Please Reply [] Please Recycle Pursuant to the Federal Mammography Quality Standards Act-Section 900.12(c), (4), (ii) Comments: Please send all Mammograms, Ultrasounds & Breast MRIs or any scan pertaining to breast cancer. (CD, Films, Electronic Transfer & Reports) to [facility], [place] [address] If Questions call [phone] Notice of Confidentiality: The documents accompanying this FAX transmission cover contain information from [facility] that is confidential and privileged. The information is intended for the use of the individual or entity named on this transmittal sheet. If you are not the intended recipient, be aware that any disclosure, copying, distribution or use of the contents is prohibited. If you have received the FAX in error, please notify us by telephone (collect) immediately to permit us to arrange for the retrieval of the documents at no cost to you. documented in this encounter Plan of Treatment Upcoming Encounters Date Type Department Care Team (Late st Contact Info) Description 05/08/2024 11:00 AM EDT Office Visit Hematology [place] [address] Sarah Yepez MD [facility] [address] [place] [address] 01/16/2025 8:20 AM EDT Appointment Mammography/[place] [address] Mary Mary ETL BI DEVELOPER [facility] [place] [address] 01/16/2025 9:20 AM EDT Office Visit General Surgery at [place] [phone] Mary Mary ETL BI DEVELOPER [facility] [place] [address] documented as of this encounter Visit Diagnoses Not on filedocumented in this encounter Care Teams Instructor Looping Relationship Specialty Start Date End Date Keith Lim DO [address] [place] [address] PCP - General 06/16/10 12/13/21 documented as of this encounter
--- OUTSIDE RECORDS SUMMARY | 2024-03-23 16:10 | XMS_ITS | Encounter Summary ---
[place] [address] Care Team Providers Care Baking Powder Mixer Name Role Phone Brady Muller MD Primary Care Provider [phone] Encounter Details Date Type Department Care Team (Latest Contact Info) Description 12/14/2021 12:54 PM EDT - 12/14/2021 11:59 PM EDT Hospital [place] [phone] Delmi Gardner MD [facility] [place] [address] Abnormal finding on breast imaging Discharge Disposition: [...] EDT Office Visit H[place]ology [place] [phone] Sarah Yepez MD [facility] DR HEMATOLOGY [place] [address] 01/16/2025 8:20 AM EDT Appointment Mammography/[place] [address] [place] APRN [facility] [place] [address] 01/16/2025 9:20 AM EDT Office [place] [address] Mary Mary APRN [facility] [place] [address] documented as of this encounter Procedures Procedure Name Priority Date/Time Associated Diagnosis Comments MAMMO DIAGNOSTIC WITHOUT CAD RIGHT Routine 12/14/2021 1:40 PM EDT Abnormal finding on breast imaging documented in this encounter Results * Mammo Diagnostic Without Cad Right (12/14/2021 1:40 PM EDT) Anatomical Region Laterality Modality Breast Right Mammography Impressions 12/16/2021 8:40 AM EDT Concordant malignant result RECOMMENDATION: Definitive surgical management. I phoned these results and recommendations to the patient on 12/16/2021 REVIEW PATH CONFERENCE?: No Thank you for letting us participate in the care of this patient. ??If you are a health care provider and have any questions regarding this report, please contact the number below. ??For patients who have questions please contact the health care companion that requested your imaging first. ? Narrative 12/16/2021 8:40 AM EDT BREAST ULTRASOUND GUIDED AUTOMATED CORE BIOPSY CLINICAL HISTORY: abnormal u/s. Right breast mass 1:00 radian 15 cm from the nipple measuring 0.8 cm PROCEDURAL DETAILS: Informed consent was obtained and a timeout procedure was performed per protocol. Using local anesthetic (less than 5 cc of 1% lidocaine), sterile technique, and ultrasound guidance the lesion in the right breast was localized and sampled. Multiple satisfactory core biopsy specimens were obtained using a 14-gauge automated device. A [employer] [place] 14G marker clip was placed. The clip was in satisfactory position both sonographically and at follow-up mammography the are not well visualized on the craniocaudal view due to far posterior location. COMPLICATIONS: None. PROCEDURAL ATTESTATION: Resident: None I performed the procedure without a resident. IMAGING DIFFERENTIAL DIAGNOSIS: Invasive ductal carcinoma, invasive lobular carcinoma PATHOLOGIC DIAGNOSIS: Invasive ductal carcinoma Delmi Gardner MD IMG MAMMO ORDERABL ES documented in this encounter Visit Diagnoses Diagnosis Abnormal finding on breast imaging Other (abnormal) findings on radiological examination of breast documented in this encounter Care Teams Baking Powder Mixer Relationship Specialty Start Date End Date Brady Muller MD [address] [address] PCP - General General Internal Medicine 12/14/21 documented as of this encounter
--- OUTSIDE RECORDS SUMMARY | 2024-03-23 16:10 | XMS_ITS | Encounter Summary ---
[place] [address] Care Team Providers Care Retort Furnace Helper Name Role Phone Keith Lim DO Primary Care Provider [phone] Encounter Details Date Type Department Care Team (Late st Contact Info) Description 12/07/2021 Telephone Hematology [place] [phone] Yudelka Blackwood Social History Tobacco Use Types Packs/Day Years Used Date Smoking Tobacco: Never Assessed Sex and Gender Information Value Date Recorded Sex Assigned at Not on file Gender Identity Not on file Sexual Orientation Not on file documented as of this encounter Miscellaneous Notes * Telephone Encounter - Yudelka Blackwood - 12/07/2021 9:05 AM EDT Lion Reilly 1960 [id number] Referring provider: Keith Lim Date of Referral: 12.04.2021 Please review outside breast imaging dated: 12.04.2021 Reason for exam and clinical history: R breast solitary nodule 12 o'clock Category: 4 Questions to be answered: ? More imaging, ? BX Sending Institution: [facility] Patient would like treatment at: Call pt at: documented in this encounter Plan of Treatment Upcoming Encounters Date Type Department Care Team (Late st Contact Info) Description 05/08/2024 11:00 AM EDT Office Visit Hematology [place] [address] Sarah Yepez MD [facility] DR [place] [address] 01/16/2025 8:20 AM EDT Appointment Mammography/DXA at [place] [phone] Mary Mary [facility] [place] [address] 01/16/2025 9:20 AM EDT Office Visit [place] [phone] Mray Mary DAIRY TRUCK DRIVER [facility] [place] [address] documented as of this encounter Visit Diagnoses Not on filedocumented in this encounter Care Teams Retort Furnace Helper Relationship Specialty Start Date End Date Keith Lim DO [address] [place] [address] PCP - General 06/16/10 12/13/21 documented as of this encounter
--- OUTSIDE RECORDS SUMMARY | 2024-03-23 16:10 | XMS_ITS | Encounter Summary ---
Author Organization [facility] Address [address] [place] [address] Care Team Providers Care Tongue And Groove Machine Feeder Name Role Phone Unknown, Provider Primary Care Provider Encounter Details Date Type Department Care Team (Late st Contact Info) Description 10/23/2021 Lab Requisition [facility] Pathology & Laboratory Medicine - [address] [address] Outr Resulting Lab, Provider Social History Tobacco [...] Procedure Name Priority Date/Time Associated Diagnosis Comments HEPATITIS C AB W REFLEX TO HCV RNA BY PCR Routine 10/22/2021 8:30 EDT documented in this encounter Results * HEPATITIS C AB W REFLEX TO HCV RNA BY PCR (10/22/2021 8:30 EDT) Hep C Antibody Negative Negative 10/26/2021 9:32 EDT [facility] Blood VENOUS BLOOD / Unknown 10/22/2021 8:30 EDT 10/23/2021 16:49 EDT Provider Outr Resulting Lab CHEMISTRY & BLOOD GAS ORDERABLES [facility] [address] [place] [address] documented in this encounter Visit Diagnoses Not on filedocumented in this encounter Care Teams Tongue And Groove Machine Feeder Relationship Specialty Start Date End Date Unknown, Provider, PCP - General 09/12/12 documented as of this encounter
--- OUTSIDE RECORDS SUMMARY | 2024-03-23 16:10 | XMS_ITS | Encounter Summary ---
Author Organization [facility] Address [address] [place] [address] Care Team Providers Care Vice President Underwriting Name Role Phone Unknown, Provider Primary Care Provider [phone] Encounter Details Date Type Department Care Team (Late st Contact Info) Description 05/14/2019 Results Only [facility] [phone] Kristin Ceja, SUEDING MACHINE OPERATOR [address] [place] [address] Social History Tobacco Use Types Packs/Day Years Used Date Smoking Tobacco: Never Assessed Sex and Gender Information Value Date Recorded Sex Assigned at Not on file Gender Identity Not on file Sexual Orientation Not on file documented as of this encounter Plan of Treatment Not on file documented as of this encounter Procedures Procedure Name Priority Date/Time Associated Diagnosis Comments PAP TEST- RESULT ONLY Routine 05/14/2019 0:00 EDT documented in this encounter Results * PAP TEST- RESULT ONLY (05/14/2019 0:00 EDT) Pathology Report: CYTOPATHOLOGY REPORT Reports generated via electronic interface contain original data; however they are lacking the format of the original report. Caution should be taken when reading/interpreti ng unformatted reports. Name: ? LION WALDEN ? Accession #: ? [id number] ? : ? 1960 (Age: 59) ??F ?Collect Date: ? 05/14/2019 ? Location: ? [facility] ? Receive Date: ? 05/15/2019 ? Provider: KRISTIN CEJA SUEDING MACHINE OPERATOR Copy to: ? Final Report SPECIMEN ADEQUACY ? Satisfactory for Evaluation - transformation zone component present GENERAL CATEGORIZATION ? Negative for Intraepithelial Lesion or Malignancy ?? Last Menstrual Period: 17 Menstrual/Pregnanc y Status: ??Post Menopausal Hormonal/Contracep tive status: None Other: Additional clinical information: Z12.4, Z01.419 Specimen/Source: ??Pap Test, Cervix, ThinPrep Imaging System with manual evaluation Document reviewed and electronically signed by: ? Shauna Ontiveros, [facility](ASCP) ? Report ??Date: 05/17/2019 13:43 HPV with Pap Test ? Date Ordered: ? 05/17/2019 ? Status: ?? Signed Out ?Date Complete: ? 05/18/2019 ? By: ??System Interface ? Date Reported: ? 05/18/2019 ? Interpretation RESULT: Negative for HPV. No E6 or E7 mRNA is detected from HPV types 16,18,31,33,35, 39,45,51,52,56,58, 59,66, and 68 by content strategy lead mediated amplification. Comments Document reviewed and electronically signed by: ? System Interface ? Report date: 05/18/2019 By the signature above, the attending physician certifies that he/she has personally conducted a gross and/or microscopic examination of the described specimens and rendered or confirmed the above diagnosis. End of Report [facility] 05/14/2019 05/15/2019 Kristin Ceja NP PATHOLOGY ORDERABLES [facility] [address] [place] [address] documented in this encounter Visit Diagnoses Not on filedocumented in this encounter Care Teams Vice President Underwriting Relationship Specialty Start Date End Date Unknown, Provider, PCP - General 09/12/12 documented as of this encounter
--- OUTSIDE RECORDS SUMMARY | 2024-03-23 16:10 | XMS_ITS | Encounter Summary ---
[place] [address] Care Team Providers Care Configuration Specialist Name Role Phone Keith Lim DO Primary Care Provider [phone] Encounter Details Date Type Department Care Team (Late st Contact Info) Description 10/05/2012 Ancillary Procedure [place]iology [place] [phone] Keith Lim DO [address] [place] [address] Social History Tobacco Use Types Packs/Day Years [...] EDT Office Visit Hematology [place] [phone] Sarah Yepez MD [facility] DR [place]EMAT[place]Y [place] [address] 01/16/2025 8:20 AM EDT Appointment Mammography/[place] [phone] Mary Mary APRN [facility] DR GENERAL SURGERY [place], [place] [id number] 01/16/2025 9:20 AM EDT Office Visit [place] [address] Mary Mary APRN [facility] [place] [address] documented as of this encounter Procedures Procedure Name Priority Date/Time Associated Diagnosis Comments FILM LIBRARY STORAGE ONLY MAMMO Routine 10/05/2012 12:00 AM EDT documented in this encounter Results * Film Library- Storage Only Mammo (10/05/2012 12:00 AM EDT) Narrative [facility] - 12/04/2021 9:00 PM EDT This exam is auto-finalizing. It's purpose is for storage only. Keith Lim DO G FILM LIBRARY ORD ERABLES Performing Organization Address City/State/[facility] Co de Phone Number [place], [place] documented in this encounter Visit Diagnoses Not on filedocumented in this encounter Care Teams Configuration Specialist Relationship Specialty Start Date End Date Keith Lim DO [address] [place] [address] PCP - General 06/16/10 12/13/21 documented as of this encounter
--- OUTSIDE RECORDS SUMMARY | 2024-03-23 16:10 | XMS_ITS | Encounter Summary ---
[place] [address] Care Team Providers Care Photo Editor Name Role Phone Keith Lim DO Primary Care Provider [phone] Encounter Details Date Type Department Care Team (Late st Contact Info) Description 12/04/2021 4:05 PM EDT Ancillary Procedure [place] [phone] Keith Lim DO [address] [place] [address] Social History Tobacco Use Types Packs/Day Years [...] EDT Office Visit Hematology [place] [phone] Sarah Yepez MD [facility] [address] [place] [address] 01/16/2025 8:20 AM EDT Appointment Mammography/[place] [phone] Mary Mary APRN [facility] [place] [address] 01/16/2025 9:20 AM EDT Office [place] [address] Mary Mary APRN [facility] [place] [place] [address] documented as of this encounter Procedures Procedure Name Priority Date/Time Associated Diagnosis Comments FILM LIBRARY-STORAGE ONLY US BREAST Routine 12/04/2021 3:58 PM EDT documented in this encounter Results * Film Library Storage Only US Breast (12/04/2021 3:58 PM EDT) Narrative [facility] - 12/04/2021 3:58 PM EDT This exam is auto-finalizing. It's purpose is for storage only. Keith Lim DO [facility] FILM LIBRARY ORD ERABLES [place], [place] documented in this encounter Visit Diagnoses Not on filedocumented in this encounter Care Teams Photo Editor Relationship Specialty Start Date End Date Keith Lim DO [address] [place] [address] PCP - General 06/16/10 12/13/21 documented as of this encounter
--- OUTSIDE RECORDS SUMMARY | 2024-03-23 16:10 | XMS_ITS | Referral Summary ---
Author Organization [facility] Address [address] [place] [address] Care Team Providers Care Machinist Linotype Name Role Phone Unknown, Provider Primary Care Provider [phone] Social History Tobacco Use Types Packs/Day Years Used Date Smoking Tobacco: Never Assessed Sex and Gender Information Value Date Recorded Sex Assigned at Not on file Gender Identity Not on file Sexual Orientation Not on file Plan of Treatment Not on file Procedures Procedure Name Priority Date/Time Associated Diagnosis Comments HEPATITIS C AB W REFLEX TO HCV RNA BY PCR Routine 10/22/2021 8:30 EDT from Last 3 Months or Most Recently Relevant to Health Maintenance Results * HEPATITIS C AB W REFLEX TO HCV RNA BY PCR (10/22/2021 8:30 EDT) Hep C Antibody Negative Negative 10/26/2021 9:32 EDT [facility] Blood VENOUS BLOOD / Unknown 10/22/2021 8:30 EDT 10/23/2021 16:49 EDT Provider Outr Resulting Lab CHEMISTRY & BLOOD GAS ORDERABLES [facility] [address] [place] [address] from Last 3 Months or Most Recently Relevant to Health Maintenance Care Teams Machinist Linotype Relationship Specialty Start Date End Date Unknown, Provider, PCP - General 09/12/12
--- OUTSIDE RECORDS SUMMARY | 2024-03-23 16:10 | XMS_ITS | Encounter Summary ---
[place] [address] Care Team Providers Care Yardage Caller Name Role Phone Brady Muller MD Primary Care Provider [phone] Encounter Details Date Type Department Care Team (Latest Contact Info) Description 12/14/2021 12:52 PM EDT Hospital Encounter [place] [phone] Delmi Gardner MD [facility] [place] [address] Abnormal finding on breast imaging Discharge Disposition: [...] EDT Office Visit Hematology [place] [phone] Sarah Yepez MD [facility] DR HEMATOLOGY [place] [address] 01/16/2025 8:20 AM EDT Appointment Mammography/[place] [phone] Mary Mary APRN [facility] [place] [address] 01/16/2025 9:20 AM EDT Office Visit [place] [address] Mary Mary APRN [facility] [place] [address] documented as of this encounter Procedures Procedure Name Priority Date/Time Associated Diagnosis Comments MAMMO DIAGNOSTIC CAD AND MARCOS RIGHT Routine 12/14/2021 1:03 PM EDT Abnormal finding on breast imaging documented in this encounter Results * Mammo Diagnostic Cad and Marcos Right (12/14/2021 1:03 PM EDT) Anatomical Region Laterality Modality Breast [...] who have questions please contact the health furnace caretaker that requested your imaging first. ? Narrative 12/14/2021 1:51 PM EDT EXAMINATION: US BREAST LIMITED RIGHT, MAMMO DIAGNOSTIC CAD AND MARCOS RIGHT CLINICAL HISTORY: abnormal mammo TECHNIQUE: MLO, [...] breast documented in this encounter Care Teams Yardage Caller Relationship Specialty Start Date End Date Brady Muller MD [address] [address] PCP - General General Internal Medicine 12/14/21 documented as of this encounter
--- OUTSIDE RECORDS SUMMARY | 2024-03-23 16:10 | XMS_ITS | Encounter Summary ---
[place] [address] Care Team Providers Care Teacher Hearing Impaired Name Role Phone Brady Muller MD Primary Care Provider [phone] Encounter Details Date Type Department Care Team (Latest Contact Info) Description 12/14/2021 12:53 PM EDT Hospital En[place] [address] Delmi Gardner MD [facility] [place] [address] Abnormal finding on breast imaging Discharge Disposition: [...] EDT Office Visit Hematology [place] [phone] Sarah Yepez MD [facility] DR [place] [address] 01/16/2025 8:20 AM EDT Appointment Mammography/[place] [phone] Mary Mary APRN [facility] [place] [address] 01/16/2025 9:20 AM EDT Office Visit General Surgery at [facility] [place] [address] Mary Mary APRN [facility] [place] [address] documented as of this encounter Procedures Procedure Name Priority Date/Time Associated Diagnosis Comments MAMMO US BIOPSY RIGHT Routine 12/14/2021 1:41 PM EDT Abnormal finding on breast imaging SURGICAL PATHOLOGY REPORT Routine 12/14/2021 1:23 PM EDT SPECIMEN TO PATHOLOGY Routine 12/14/2021 1:23 PM EDT documented in this encounter Results * Mammo Us Biopsy Right (12/14/2021 1:41 PM EDT) Anatomical Region Laterality Modality Breast [...] who have questions please contact the health nursing care attendant that requested your imaging first. ? Electronically signed by: Delmi Gardner MD, [facility] ([phone]), at 12/16/2021 8:40 AM Narrative 12/16/2021 8:40 AM EDT BREAST ULTRASOUND [...] obtained using a 14-gauge automated device. A Fromlab 14G marker clip was placed. The clip [...] Delmi Gardner MD IMG MAMMO ORDERABL ES * Surgical Pathology Report (12/14/2021 1:23 PM EDT) Final Diagnosis [id number] ? Location: 3L The signing pathologist has (i) examined the relevant preparation(s) for the specimen(s) and (ii) rendered or confirmed the diagnosis(es). . ?Molecular Genetics RESULTS TEST: HER2 (ERBB2) FISH, Breast METHOD: Fluorescence in situ hybridization (FISH) with chromosome 17 centromere (17p11.1-q11.1) probe and a locus specific probe for the HER2 gene locus (17q11.2- q12). SAMPLE ANALYZED: A1-6 RESULT: ?NEGATIVE FOR HER2/RIMMA AMPLIFICATION ? TOTAL # SIGNALS/TOTAL # NUCLEI COUNTED FOR HER2 PROBE = 106 ? TOTAL # SIGNALS/TOTAL # NUCLEI COUNTED FOR CEP-17 PROBE = 84 ? HER2 TO CEP-17 RATIO = 1.3 ?(NORMAL RANGE <2.0) ? TOTAL # NUCLEI COUNTED = 40 ? AVERAGE # HER2 signals/cell = 2.7 Interpretation: ??Paraffin-embedde d tissue sections were submitted for HER2 (ERBB2) gene amplification analysis by FISH. ??Direct analysis was performed using the Travador Kit. ??Slide adequacy and signal enumeration were evaluated and satisfactory for both control and patient slides. ??A signal ratio derived from the HER2 probe and the CEP-17 centromere probe of ?2.0 is considered positive for HER2 gene amplification. The 2013 ASCO/CAP guideline recommendation for HER2 testing in breast cancer states that samples with a HER2 to CEP-17 ratio of less than 2.0 are non-amplified. Specimens with a HER2 to CEP-17 range of ?2.0 are considered amplified. This test is approved by the U.S. FDA for clinical diagnostic use. Reference: Flakito OSORIO, et al. Recommendations for human epidermal growth factor receptor 2 testing in breast cancer: [place] Society of Clinical Oncology/College of [place] Pathologists clinical practice guideline update. J Clin Oncol. 2013 May 25. Flakito AC, et al. Human Epidermal Growth Factor Receptor 2 Testing in Breast Cancer: [place] Society of Clinical Oncology/College of [place] Pathologists Clinical Practice Guideline Focused Update. Arch Pathol Lab Med. 2017December 21/J Clin Oncol. 2017December 21. Reviewed by: Asa Greene MD [facility] [place]ology Electronically signed by: ?Asa Greene MD Verified: ??12/18/2021 12:21 ??Hematopathologis t Performed at: ??-[facility] [place]. [place], [place], [place] . ? Addendum ADDENDUM DISCUSSION Immunohistochemist ry Studies Specimen: Right breast, core needle biopsy (A1) ER immunoreactivity: Positive (>90% cancer cells with immunostaining) Stain intensity: Strong UT immunoreactivity: Positive (>90% cancer cells with immunostaining) Stain intensity: Strong HER2 FISH: separate report to follow ? *Diagnostic estes for hormone receptors (ASCO/CAP GUIDELINES, 2020): ?Negative immunoreactivity: <1% tumor cells with immunostaining ?Positive immunoreactivity: >=1% tumor cells with immunostaining ??Low Positive: 1-10% tumor cells with immunostaining* *There are limited data on the overall benefit of endocrine therapies for patients with low level (1-10%) ER expression, but they currently suggest possible benefit, so patients are considered eligible for endocrine treatment. There are data that suggest invasive cancers with these results are heterogeneous in both behavior and biology and often have gene expression profiles more similar to ER-negative cancers. Immunohistochemica l assays were performed on paraffin-embedded tissue sections fixed in 10% neutral buffered formalin for 6-72 hours using the polymer system technique with appropriate controls. The assays were performed according to the senior insight manager ? 's instructions using Anti-ER (SP1) and Anti-UT (16) antibodies. These tests were developed and their performance characteristics determined by [facility]. They may not have been cleared or approved by the US Food and Drug Administration. The FDA does not require such tests to go through premarket FDA review. These tests are used for clinical purposes and should not be regarded as investigational or for research. This laboratory is certified under the Clinical Laboratory Improvement Amendments (CLIA) as qualified to perform high complexity clinical laboratory testing. Electronically signed by: ?Rupali Cruz DO Verified: ??12/16/2021 9:04 ?? Pathologist Performed at: ??-[facility] [place] [place], [place], [place] ?Surgical Pathology DIAGNOSIS Needle biopsies: ?Right breast Diagnosis: ?Invasive ductal carcinoma ?High grade, modified SBR score = 8 Microcalcification s: ??N/A Electronically signed by: ?Rupali Cruz DO Verified: ??12/15/2021 10:53 ??Pathologist Performed at: ??-[facility] [place] [place], [place], [place] DISCUSSION Studies for ER, UT, and HER2 have been ordered; results will be issued in an addendum. SPECIMEN(S) SUBMITTED A - RIGHT BREAST ULTRASOUND BIOPSY, biopsy (3) . CLINICAL INFORMATION [facility], [facility] SPECIMEN PROCESSING A - Labeled/Fixative: Right breast ultrasound biopsy, formalin. Quantity/Size: Three, averaging 1.3 x 0.2 cm Tissue Description: Partly hemorrhagic, miles-yellow fibrofatty needle core biopsies. Sections/Processin g: Entirely submitted in 1 cassette labeled A1. Ischemic Time: One minute ??pps 12/18/2021 12:[address] [facility] BREAST STRUCTURE / Unknown 12/14/2021 1:23 PM EDT 12/14/2021 1:23 PM EDT Delmi Gardner MD PATHOLOGY/CYTOLOGY ORDERABLES Performing Organization Address [facility]/ZIP Co de Phone Number [facility] [place] [address] * Specimen to Pathology (12/14/2021 1:23 PM EDT) AP Specimen 12/14/2021 1:23 PM EDT 12/14/2021 1:[address] [facility] - 12/14/2021 1:23 PM EDT Specimen requisition ordered. ??Separate Pathology report to follow Delmi Gardner MD PATHOLOGY/CYTOLOGY ORDERABLES Performing Organization Address [facility] Co de Phone Number [facility] [place] [address] documented in this encounter Visit Diagnoses Diagnosis Abnormal finding on breast imaging Other (abnormal) findings on radiological examination of breast documented in this encounter Administered Medications Inactive Administered Medications - up to 3 most recent administrations Medication Order MAR Action Action Date Dose Rate Site lidocaine (Xylocaine) 1% (10 mg/mL) injection 100 mg 100 mg (10 mL), Intradermal, ONCE, 1 dose, On Tue12/14/21 at 1330, Routine Given 12/14/2021 1:20 PM EDT 100 mg documented in this encounter Care Teams Teacher Hearing Impaired Relationship Specialty Start Date End Date Brady Muller MD [address] [place] [id number] PCP - General General Internal Medicine 12/14/21 documented as of this encounter
--- OUTSIDE RECORDS SUMMARY | 2024-03-23 16:10 | XMS_ITS | Clinical Summary ---
Author Organization [facility] Address [address] [place] [address] Care Team Providers Care Audit Director Name Role Phone Unknown, Provider Primary Care Provider [phone] Social History Tobacco Use Types Packs/Day Years Used Date Smoking Tobacco: Never Assessed Sex and Gender Information Value Date Recorded Sex Assigned at Not on file Gender Identity Not on file Sexual Orientation Not on file Plan of Treatment Health Maintenance Due Date Last Done Comments RSV Immunization ( o r 60+ Years) (1 - 1-dose 60+ series) 2019 COVID-19 Vaccine ( season) 2023 Hepatitis C Screen Completed 10/22/2021 Procedures Procedure Name Priority Date/Time Associated Diagnosis Comments HEPATITIS C AB W REFLEX TO HCV RNA BY PCR Routine 10/22/2021 8:30 EDT from Last 3 Months or Most Recently Relevant to Health Maintenance Results * HEPATITIS C AB W REFLEX TO HCV RNA BY PCR (10/22/2021 8:30 EDT) Hep C Antibody Negative Negative 10/26/2021 9:32 EDT [facility] Blood VENOUS BLOOD / Unknown 10/22/2021 8:30 EDT 10/23/2021 16:49 EDT Provider Outr Resulting Lab CHEMISTRY & BLOOD GAS ORDERABLES [facility] [address] [place] [address] from Last 3 Months or Most Recently Relevant to Health Maintenance Care Teams Audit Director Relationship Specialty Start Date End Date Unknown, Provider, PCP - General 09/12/12
--- OUTSIDE RECORDS SUMMARY | 2024-03-23 16:10 | XMS_ITS | Encounter Summary ---
Author Organization [facility] Address [address] [place] [address] Care Team Providers Care Brokerage Purchase And Sale Clerk Name Role Phone Unknown, Provider Primary Care Provider [phone] Encounter Details Date Type Department Care Team (Late st Contact Info) Description 09/08/2012 Results Only [facility] [phone] Taz Kunz PA-C [address] [place] [address] Social History Tobacco Use Types Packs/Day Years [...] Diagnosis Comments PAP TEST- RESULT ONLY Routine 09/08/2012 0:00 EST documented in this encounter Results * PAP TEST- RESULT ONLY (09/08/2012 0:00 EST) Pathology Report: CYTOPATHOLOGY REPORT Reports generated via electronic interface contain original data; however they are lacking the format of the original report. Caution should be taken when reading/interpreti ng unformatted reports. Name: ? KAYLEELION [place] ? Accession #: ? [id number] : ? 1960 (Age: 52) ??F ?Collect Date: ? 09/08/2012 Location: ? [facility] ? Receive Date: ? 09/13/2012 Provider: ?TAZ PURDY Copy to: ? Specimen/Source: ?Pap Test, Cervix, ThinPrep Imaging System with manual evaluation Last Menstrual Period: ? 08/31/2012 ? SPECIMEN ADEQUACY ? Satisfactory for Evaluation - transformation zone component present GENERAL CATEGORIZATION ? Negative for Intraepithelial Lesion or Malignancy ? Document reviewed and electronically signed by: ? Ibis Franco, CT(ASCP) ? Report Date: ??09/14/2012 08:41 End of Report [facility] [place] 09/08/2012 09/13/2012 Taz Kunz PA-C PATHOLOGY ORDERABLES JOSE [place] [address] [place] [address] documented in this encounter Visit Diagnoses Not on filedocumented in this encounter Care Teams Brokerage Purchase And Sale Clerk Relationship Specialty Start Date End Date Unknown, Provider, PCP - General 09/12/12 documented as of this encounter
--- OUTSIDE RECORDS SUMMARY | 2024-03-23 16:10 | XMS_ITS | Encounter Summary ---
[place] [address] Care Team Providers Care Health Management Consultant Name Role Phone Keith Lim DO Primary Care Provider [phone] Encounter Details Date Type Department Care Team (Late st Contact Info) Description 11/25/2021 Ancillary Procedure [place] [phone] Keith Lim DO [address] [place] [address] Social History Tobacco Use Types Packs/Day Years [...] EDT Office Visit Hematology [place] [phone] Sarah Yepez MD [facility] DR HEMAT[place]Y [place] [address] 01/16/2025 8:20 AM EDT Appointment Mammography/[place] [phone] Mary Mary APRN [facility] DR GENERAL SURGERY [place], [place] [id number] 01/16/2025 9:20 AM EDT Office Visit [place] [address] Mary Mary APRN [facility] [place] [address] documented as of this encounter Procedures Procedure Name Priority Date/Time Associated Diagnosis Comments FILM LIBRARY STORAGE ONLY MAMMO Routine 11/25/2021 12:00 AM EDT documented in this encounter Results * Film Library- Storage Only Mammo (11/25/2021 12:00 AM EDT) Narrative [facility] - 12/04/2021 3:57 PM EDT This exam is auto-finalizing. It's purpose is for storage only. Keith Lim DO G FILM LIBRARY ORD ERABLES [place], [place] documented in this encounter Visit Diagnoses Not on filedocumented in this encounter Care Teams Health Management Consultant Relationship Specialty Start Date End Date Keith Lim DO [address] [place] [address] PCP - General 06/16/10 12/13/21 documented as of this encounter
--- OUTSIDE RECORDS SUMMARY | 2024-03-23 16:10 | XMS_ITS | Encounter Summary ---
Author Organization [facility] Address [address] [place] [address] Care Team Providers Care Health And Safety Manager Name Role Phone Unknown, Provider Primary Care Provider Encounter Details Date Type Department Care Team (Latest Contact Info) Description 06/30/2023 Lab Requisition [facility] Pathology & Laboratory Medicine - [facility] [address] [place] [address] Cristin Silveira PA [address] [place] [address] Encounter for gynecological examination (general) (routine) without abnormal findings; Encounter for screening for malignant neoplasm of cervix Social History Tobacco Use Types Packs/Day Years Used Date Smoking Tobacco: Never Assessed Sex and Gender Information Value Date Recorded Sex Assigned at Not on file Gender Identity Not on file Sexual Orientation Not on file documented as of this encounter Plan of Treatment Not on file documented as of this encounter Procedures Procedure Name Priority Date/Time Associated Diagnosis Comments PAP TEST Today 06/28/2023 15:15 EST Encounter for gynecological examination (general) (routine) without abnormal findings Encounter for screening for malignant neoplasm of cervix HPV DNA DETECTION WITH GENOTYPING, PCR Today 06/28/2023 15:15 EST Encounter for gynecological examination (general) (routine) without abnormal findings Encounter for screening for malignant neoplasm of cervix documented in this encounter Results * HUMAN PAPILLOMAVIRUS (HPV) DETECTION-HIGH RISK TYPES (06/28/2023 15:15 EST) HPV other High Risk types, PCR Negative Negative 07/08/2023 16:59 EST [facility] Comment:No E6 or E7 mRNA is detected from HPV types 16,18,31,33,35,39,45,51,52,56,58,59,66, and 68 by forest pathologist mediated amplification. Pap Test CERVIX UTERI STRUCTURE / Unknown 06/28/2023 15:15 EST 07/07/2023 13:20 EST Cristin PURDY MICROBIOLOGY - G ENERAL ORDERABLES [facility] [address] [place] [id number] * PAP TEST (06/28/2023 15:15 EST) Specimens A. Cervix and/or Endocervix , ThinPrep Imaging System with Manual Evaluation 07/08/2023 16:59 [facility] Specimen Adequacy Satisfactory for Evaluation - assessment of transformation zone component not applicable ( e.g. atrophy, vaginal sample, hysterectomy) Scant squamous epithelial component 07/08/2023 16:59 [facility] General Categorization Negative for intraepithelial lesion or malignancy 07/08/2023 16:59 [facility] Attestation . 07/08/2023 16:59 [facility] at 1659 Clinical History See below 07/08/20 23 16:59 [facility] HPV The result for the Human Papillomavirus (HPV) Detection-High Risk Types is Negative. No E6 or E7 mRNA is detected from HPV types 16,18,31,33,35,39 ,45,51,52,56,58,5 9,66, and 68 by forest pathologist mediated amplification.Donna ting was performed on specimen [id number] and was resulted on 07/08/2023 1659 EST by ANABELLA, LAB INSTRUMENT RESULTS IN 07/08/2023 16:59 [facility] Performing Lab [facility] 07/08/2023 16:59 [facility] Scanned Images 07/08/2023 16:59 [facility] Pap Test CERVIX UTERI STRUCTURE / Unknown 06/28/2023 15:15 EST 06/30/2023 8:44 EST Cristin PURDY PATHOLOGY ORDERA DENISE [facility] [address] [place] [address] documented in this encounter Visit Diagnoses Diagnosis Encounter for gynecological examination (general) (routine) without abnormal findings Encounter for screening for malignant neoplasm of cervix Screening for malignant neoplasm of the cervix documented in this encounter Care Teams Health And Safety Manager Relationship Specialty Start Date End Date Unknown, Provider, PCP - General 09/12/12 documented as of this encounter
[2024-03-23 18:23] LABS: HCT 45.4 % (36.0-46.0); HGB 14.9 g/dL (11.2-15.7); MCHC 32.8 % (32.0-36.0); MCV 100 fL (80-95); MPV 11.3 fL (8.0-11.0); Platelet Count 199 10^3/uL (130-400); RBC 4.52 10^6/uL (3.93-5.22); RDW 12.2 % (11.7-14.6); RDW-SD 45.8 fL; WBC 5.79 10^3/uL (4.4-10.8)
[2024-03-23 19:07] LABS: ALT 40 U/L (14-59); AST 41 U/L (15-37); Alkaline Phosphatase 74 U/L (46-116); Anion Gap 7.1 mmol/L (3-11); BUN 18 mg/dL (7-18); Bilirubin, Total 0.66 mg/dL (0.2-1.0); CO2 27.9 mmol/L (21.0-32.0); Chloride 102 mmol/L (98-107); Estimated GFR 62.52 (mL/min/1.73m2); Glucose 98 mg/dL (74-106); Lipase 34 U/L (16-77); Potassium 4.1 mmol/L (3.5-5.1); Sodium 137 mmol/L (136-145); Total Protein 7.1 g/dL (6.4-8.2)
== END 2024-03-23 16:04 | disposition home or self-care (01) ==
LOC: NCHCN 16:03
PROVIDERS: PCP Physician Assistant; Visit Provider Internal Medicine
DX: R10.13 Epigastric pain (principal)
CPT/HCPCS: 80053; 83690; 85027